=== PATIENT | male | born 1950 ===

== ENCOUNTER 2016-08-23 07:08 | Day surgery (SDC) | payer OTHER ==
[2016-08-23 07:48] VITALS: BMI 29.0
[2016-08-23] MEDS ORDERED: Lactated Ringer's 500 ML IV ONE (09:11)
[2016-08-23] MEDS ORDERED: Pantoprazole 40 mg EC Tab PO STA (09:16)
--- NOTE | 2016-08-23 09:16 | CP.SDSHP ---
Same Day Surgery H & P - History Proposed Procedure: egd Pre-Op Diagnosis: Gastric Cancer S/P CTX for preop evaluation - Previous Medical/Surgical History Cardiac: Hypertension Pulmonary: Asthma Misc: Other (Gastric Cancer, gastritis, H pylori gastritis) - Allergies Allergies: Allergies No Known Allergies Allergy (Verified 04/19/16 07:31) - Physical Exam Vital Signs: Vital Signs 08/23/16 07:30 Temperature 98.6 F Pulse Rate 80 Respiratory 20 Rate Blood Pressure 134/58 L O2 Sat by Pulse 99 Oximetry Mental Status: Alert & Oriented x3 Neuro: WNL Heart: WNL Lungs: WNL GI: WNL - Impression Impression: Gastric cancer for pre-op evaluation Pt. Evaluated Today:Candidate for Anesthesia & Procedure: Yes - Date & Time Date: 08/23/16 Time: 09:16 Short Stay Discharge - Short Stay Discharge Admitting Diagnosis/Reason for Visit: HEARTBURN / GERD W/ ESOPHAGITIS Disposition: HOME/ ROUTINE
[2016-08-23] MEDS ORDERED: Propofol 10 mg/ml Inj (20 ML) ONE (09:21)
[2016-08-23] MEDS ORDERED: Lidocaine Hydrochloride 10 ML INJ ONE (09:31)
[2016-08-23] MEDS ORDERED: Pantoprazole 40 mg EC Tab PO ONE (10:30)
[2016-08-23 10:34] LABS: HEMATOCRIT 27.9 % (35.0-51.0); MEAN CORPUSCULAR HEMOGLOBIN 29.1 pg (27.0-31.0); MEAN CORPUSCULAR HGB CONC 32.6 g/dL (33.0-37.0); MEAN PLATELET VOLUME 6.2 fL (7.2-11.7); RED CELL DISTRIBUTION WIDTH 20.9 % (11.5-14.5); WHITE BLOOD COUNT 5.8 K/uL (4.8-10.8)
[2016-08-23 10:35] LABS: MEAN CELL VOLUME 89.1 fL (80.0-94.0)
[2016-08-23 10:37] VITALS: TEMP 98.2
[2016-08-23 13:34] VITALS: O2SAT 99
[2016-08-23 13:52] VITALS: BP 121/58; PULSE 84; RESP 14
== END 2016-08-23 11:15 | disposition home or self-care (01) ==
LOC: C.ENDO 07:08
PROVIDERS: ATTEND Internal Medicine Gastroenterology
DX: C16.9 Malignant neoplasm of stomach, unspecified (principal); K21.9 Gastro-esophageal reflux disease without esophagitis; K29.70 Gastritis, unspecified, without bleeding
CPT/HCPCS: 36415; 43239; 85027; 88305; 88342; J2704; J3010; J7120

== ENCOUNTER 2017-01-29 10:16 | Inpatient (IN) | payer MEDICARE, OTHER ==
[2017-01-29 10:16] VITALS: BMI 29.0
--- NOTE | 2017-01-29 10:51 | C.PDOC ---
History Of Present Illness Patient is a 66 y/o male who presents to the ED by referral of his PMD for dehydration concern. Patient is s/p gastrectomy due to stomach CA in September 2016; patient admits to feeling periodic pain in upper mid chest/throat area when he swallows and dramatic weight loss since procedure. Patient is currently asymptomatic and denies any other pain at this time. Time Seen by Provider: 01/29/17 10:51 Chief Complaint (Nursing): Medical Clearance History Per: Patient History/Exam Limitations: no limitations Recent travel outside of the [place]: No Past Medical History Reviewed: Historical Data, Nursing Documentation, Vital Signs Vital Signs: Last Vital Signs Temp 98.8 F 01/29/17 13:52 Pulse 77 01/29/17 13:52 Resp 16 01/29/17 13:52 BP 130/67 01/29/17 13:52 Pulse Ox 99 01/29/17 13:52 - Medical History PMH: Anemia (IRON DEFICIENCY), Arthritis (CERVICAL AND HANDS), Asthma, Depression (NOT TAKING MED. ANYMORE; CLAIMS FEELS BETTER), HTN, Hypercholesterolemia Surgical History: Endoscopy Denies: Pacemaker, Tonsillectomy Other Surgeries: gastrectomy September 2016 - [employer] Procedures COLONOSCOPY (06/24/14) CORONAR ARTERIOGR-2 CATH (07/31/05) LEFT HEART CARDIAC CATH (07/31/05) LT HEART ANGIOCARDIOGRAM (07/31/05) Family History: States: Unknown Family Hx - Social History Hx Tobacco Use: No Hx Alcohol Use: No Hx Substance Use: No - Immunization History Hx Tetanus Toxoid Vaccination: No Hx Influenza Vaccination: Yes Hx Pneumococcal Vaccination: No Review Of Systems Except As Marked, All Systems Reviewed And Found Negative. ENT: Positive for: Throat Pain (periodic pain while swallowing. ) Physical Exam - Physical Exam Appears: Well, Non-toxic Skin: Normal Color, Warm, Dry Head: Atraumatic, Normacephalic Oral Mucosa: Dry Chest: Symmetrical Cardiovascular: Rhythm Regular, No Murmur Respiratory: Normal Breath Sounds, No Rales, No Rhonchi, No Wheezing Gastrointestinal/Abdominal: Soft, No Tenderness Extremity: Normal ROM (x4) Neurological/Psych: Oriented x3, Normal Speech, Normal Cognition ED Course And Treatment - Laboratory Results Result Diagrams: 01/29/17 11:20 01/29/17 11:20 ECG: Interpreted By Me ECG Rhythm: Sinus Rhythm ECG Interpretation: Normal Rate From EC O2 Sat by Pulse Oximetry: 100 (room air) Pulse Ox Interpretation: Normal - Radiology CXR: Interpreted by Me CXR Interpretation: Yes: No Acute Disease Progress Note: EKG, CXR, UA, and blood work ordered; IV fluids administered. Progress - Re-Evaluation Re-evaluation Note: 01/29/17 10:51 D/W DR GARCIA WILL ADMIT AND CONSULT DR JEFFERSON Disposition Counseled Patient/Family Regarding: Studies Performed, Diagnosis - Disposition Disposition: HOSPITALIZED Disposition Time: 11:40 Condition: STABLE - POA Present On Arrival: Poor Glycemic Control - Clinical Impression Clinical Impression: Dysphagia, Weight loss - Scribe Statement The provider has reviewed the documentation as recorded by the Scribe Estrella Akhtar All medical record entries made by the Scribe were at my direction and personally dictated by me. I have reviewed the chart and agree that the record accurately reflects my personal performance of the history, physical exam, medical decision making, and the department course for this patient. I have also personally directed, reviewed, and agree with the discharge instructions and disposition. Decision To Admit - Pt Status Changed To: Hospital Disposition Of: Observation - . Bed Request Type: Regular Admitting Physician: Miranda Garcia Patient Diagnosis: Dysphagia, Weight loss
[2017-01-29] MEDS ORDERED: Sodium Chloride 0.9% 1,000 ML IV ONE ×2 (11:03)
[2017-01-29] MEDS ORDERED: Sodium Chloride 0.9% 1,000 ML ONE ×2 (11:24)
[2017-01-29 11:25] LABS: BASO % 0.7 % (0.0-2.0); EOS # 0.1 K/uL (0.0-0.7); EOS % 2.2 % (0.0-4.0); HEMATOCRIT 31.8 % (35.0-51.0); LYMPH # 1.6 K/uL (1.0-4.3); LYMPH % 42.9 % (20.0-40.0); MEAN CELL VOLUME 89.3 fL (80.0-94.0); MEAN CORPUSCULAR HEMOGLOBIN 29.8 pg (27.0-31.0); MEAN CORPUSCULAR HGB CONC 33.4 g/dL (33.0-37.0); MEAN PLATELET VOLUME 6.6 fL (7.2-11.7); MONO # 0.3 K/uL (0.0-0.8); MONO % 9.1 % (0.0-10.0); NRBC % 0.1 % (0.0-2.0); RED CELL DISTRIBUTION WIDTH 17.6 % (11.5-14.5); WHITE BLOOD COUNT 3.8 K/uL (4.8-10.8)
[2017-01-29 11:36] LABS: BLOOD UREA NITROGEN 12 mg/dL (9-20); CALCIUM 9.4 mg/dl (8.6-10.4); CARBON DIOXIDE 25 mmol/L (22-30); CHLORIDE 104 mmol/L (98-107); GFR AFRICAN-AMERICAN > 60; GLUCOSE,RANDOM 58 mg/dL (75-110); POTASSIUM 3.3 mmol/L (3.6-5.2); SODIUM 142 mmol/L (132-148)
[2017-01-29 11:42] LABS: RBC URINE < 1 /hpf (0-3); URINE BILIRUBIN NEGATIVE (NEGATIVE); URINE BLOOD NEGATIVE (NEGATIVE); URINE COLOR Yellow (YELLOW); URINE GLUCOSE (UA) NORMAL (Normal); URINE KETONE NEGATIVE (NEGATIVE); URINE LEUKOCYTE ESTERASE NEG Leu/uL (Negative); URINE PROTEIN NEGATIVE (NEGATIVE); WBC URINE 1 /hpf (0-5)
[2017-01-29] MEDS: Multiple Vitamins Oral Solution PO SCH (14:45)
[2017-01-29] MEDS: Megestrol Acetate 40 mg/ml Cup PO SCH ×2 (14:45→21:35)
--- NOTE | 2017-01-29 15:15 | RAD ---
PROCEDURE: CHEST RADIOGRAPH, 1 VIEW HISTORY: DEHYDRATION COMPARISON: 06/06/2016. FINDINGS: LUNGS: Clear. PLEURA: No pneumothorax or pleural fluid seen. CARDIOVASCULAR: No radiographic findings to suggest acute or significant cardiovascular disease. Venous access catheter in stable, satisfactory position. OSSEOUS STRUCTURES: No significant abnormalities. VISUALIZED UPPER ABDOMEN: Normal. OTHER FINDINGS: None. IMPRESSION: No active disease. No acute/significant interval changes. Concordant results with the preliminary interpretation rendered by the emergency department physician procedure.
--- NOTE | 2017-01-29 17:54 | CP.PCM.CON ---
History of Present Illness - History of Present Illness History of Present Illness: Covering Dr Acharya. ASked to see pt for abdom pain and dysphagi,. H/o gastric CA and surgery 3 months ago. HAs been losingweight. Dysphagia x 1 months and odynophagia. Review of Systems - Constitutional Constitutional: Anorexia, Weight Loss - EENT Eyes: absent: Photophobia Nose/Mouth/Throat: Dysphagia, Odynophagia. absent: Neck Pain - Cardiovascular Cardiovascular: absent: Chest Pain, Dyspnea - Respiratory Respiratory: absent: Dyspnea, Hemoptysis, Wheezing - Gastrointestinal Gastrointestinal: Abdominal Pain, Nausea. absent: Diarrhea, Hematemesis, Hematochezia, Melena - Genitourinary Genitourinary: absent: Hematuria - Musculoskeletal Musculoskeletal: absent: Muscle Cramps, Muscle Weakness - Integumentary Integumentary: absent: Jaundice - Neurological Neurological: absent: Convulsions Past Patient History - Past Medical History & Family History Past Medical History?: Yes - Past Social History Smoking Status: Never Smoked - CARDIAC Hx Hypercholesterolemia: Yes Hx Hypertension: Yes Hx Pacemaker: No - PULMONARY Hx Asthma: Yes - NEUROLOGICAL Hx Neurological Disorder: Yes HX Cerebrovascular Accident: No Hx Dizziness: Yes Hx Paralysis: No - HEENT Hx HEENT Problems: Yes Hx Cataracts: Yes (RIGHT EYE, RECENTLY REMOVED, 04/05/16) - RENAL Hx Chronic Kidney Disease: No - ENDOCRINE/METABOLIC Hx Endocrine Disorders: No - HEMATOLOGICAL/ONCOLOGICAL Hx Anemia: Yes (IRON DEFICIENCY) - INTEGUMENTARY Hx Dermatological Problems: No - MUSCULOSKELETAL/RHEUMATOLOGICAL Hx Arthritis: Yes (CERVICAL AND HANDS) - GASTROINTESTINAL Hx Gastrointestinal Disorders: Yes Hx Fatty Liver Disease: Yes Hx Hemorrhoids: Yes (WITH BLEEDING) Other/Comment: FATTY LIVER, COLONOSCOPY 07/06 - GENITOURINARY/GYNECOLOGICAL Hx Genitourinary Disorders: No - PSYCHIATRIC Hx Depression: Yes (NOT TAKING MED. ANYMORE; CLAIMS FEELS BETTER) Hx Substance Use: No - SURGICAL HISTORY Hx Tonsillectomy: No - ANESTHESIA Hx Anesthesia: Yes Hx Anesthesia Reactions: No Hx Malignant Hyperthermia: No Meds Allergies/Adverse Reactions: Allergies Allergy/AdvReac Type Severity Reaction Status Date / Time No Known Allergies Allergy Verified 01/29/17 10:38 - Medications Medications: Current Medications Famotidine (Pepcid) 20 mg IVP DAILY [facility] Last Admin: 01/29/17 14:47 Dose: 20 mg Sodium Chloride (Sodium Chloride 0.9%) 1,000 mls @ 100 mls/hr IV .Q10H ONE Stop: 01/29/17 21:02 Last Admin: 01/29/17 13:07 Dose: 100 mls/hr Megestrol Acetate (Megace) 40 mg PO Q8 [facility] Last Admin: 01/29/17 14:45 Dose: 40 mg Multivitamins/Vitamin C (Multi-Delyn Liquid) 5 ml PO DAILY [facility] Last Admin: 01/29/17 14:45 Dose: 5 ml Sucralfate (Carafate Tab) 1 gm PO QID [facility] Last Admin: 01/29/17 15:50 Dose: 1 gm Physical Exam - Constitutional Appears: Non-toxic - Neck Exam Neck exam: Negative for: Tenderness - Respiratory Exam Respiratory Exam: Clear to Auscultation Bilateral - Cardiovascular Exam Cardiovascular Exam: RRR - GI/Abdominal Exam GI & Abdominal Exam: Normal Bowel Sounds, Soft. absent: Guarding, Rebound, Tenderness - Extremities Exam Extremities exam: Negative for: calf tenderness - Neurological Exam Neurological exam: Alert, Oriented x3 Results - Vital Signs Recent Vital Signs: Last Vital Signs Temp 98.8 F 01/29/17 13:52 Pulse 77 01/29/17 13:52 Resp 16 01/29/17 13:52 BP 130/67 01/29/17 13:52 Pulse Ox 100 01/29/17 15:23 - Labs Result Diagrams: 01/29/17 11:20 01/29/17 11:20 Assessment & Plan (1) Dysphagia Assessment and Plan: COnsider GERD, esophagitis, juliana, gastric CA. Consider esophogram or EGD Status: Acute (2) Weight loss Assessment and Plan: GAstric CA. s/p surgery Status: Acute (3) Anemia Status: Chronic (4) Benign essential HTN Status: Chronic (5) GERD (gastroesophageal reflux disease) Status: Chronic (6) Gastric cancer Assessment and Plan: surgery 3 months ago. Status: Acute
[2017-01-29 18:19] LABS: INR 1.3
[2017-01-29] MEDS ORDERED: Potassium Chloride 20 mEq/15 ml LIQ UD PO STA (19:10)
[2017-01-29] MEDS ORDERED: Potassium Chloride 20 mEq/15 ml LIQ UD ONE (19:18)
[2017-01-29] MEDS: Sucralfate 1 gm/10 ml Oral Susp UD PO SCH (21:35)
[2017-01-30] MEDS: Megestrol Acetate 40 mg/ml Cup PO SCH ×3 (05:15→21:12)
[2017-01-30] MEDS ORDERED: Barium Sulfate for Susp 98% w/w 340g Bottle ONE (08:12)
[2017-01-30] MEDS ORDERED: Barium Sulfate for Susp 96% w/w 176g Bottle PR ONE (08:12)
[2017-01-30] MEDS: Sucralfate 1 gm/10 ml Oral Susp UD PO SCH ×4 (10:00→22:00)
[2017-01-30] MEDS: Multiple Vitamins Oral Solution PO SCH (10:00)
--- NOTE | 2017-01-30 12:27 | CARD ---
APPROVED REPORT EKG Measurement Heart [id number] <Conclusion> Normal sinus rhythm Normal ECG
--- NOTE | 2017-01-30 13:11 | RAD ---
HISTORY: dysphagia (PT SCOUTED FOR GI/ESPH) ORDER CHANGED TO VIDEO SWALLOW COMPARISON: Portable chest 01/29/2017. FINDINGS: BOWEL: Nonobstructive bowel gas pattern is appreciated. Obtain seizures identified status post prior bowel segmental resection at the left lower quadrant as well as at the right upper quadrant. No gross free intraperitoneal gas. No suspicious intra-abdominal calcifications identified. BONES: Normal. OTHER FINDINGS: Right-sided left port catheter identified with the costophrenic sulci and lateral bases excluded from this exam. Cardiac silhouette appears normal as well as midline trachea. No prominent pneumothorax. No infiltrate bilaterally. IMPRESSION: Prior life port catheter placement again evident with no definite acute chest findings as imaged. No bowel obstruction pattern or gross free intraperitoneal gas.
[2017-01-30] MEDS ORDERED: Iodixanol 320 MG/ML 100 ML BOTTLE IV ONE (14:06)
--- NOTE | 2017-01-30 15:50 | CT ---
PROCEDURE: CT NECK WITH CONTRAST HISTORY: ct of neck with contrast dx dysphagia hx of gastr COMPARISON: None TECHNIQUE: CT of the neck with intravenous contrast. Coronal and sagittal reformats generated. Intravenous contrast dose: 100 mL Visipaque 320 Radiation dose: DLP 430.11 mGy-cm This CT exam was performed using one or more of the following dose reduction techniques: Automated exposure control, adjustment of the mA and/or kV according to patient size, and/or use of iterative reconstruction technique. FINDINGS: NASOPHARYNX: Unremarkable. SUPRAHYOID NECK: Unremarkable oropharynx, oral cavity, parapharyngeal space and retropharyngeal space. INFRAHYOID NECK: There is circumferential mucosal thickening at the level of the lower larynx/focal cord associated with focal narrowing at this level. Otherwise the hypopharynx, and supraglottic space are unremarkable. . MASS: Focal mucosal thickening at the level of the vocal cord. The possibility of neoplasm should be excluded. GLANDS: Parotid and submandibular glands unremarkable. Normal size thyroid gland, without nodule. LYMPH NODES: Normal. No lymphadenopathy. CERVICAL SPINE: No fracture or focal lesion. There is ligament calcification posterior to C2 and C3 vertebral body. Moderate degenerative changes are noted. VASCULAR STRUCTURES: There is venous catheter extending to the right jugular vein and the SVC. OTHER FINDINGS: None. IMPRESSION: Focal circumferential mucosal thickening at the level of the vocal cord associated with moderate to severe narrowing at this level. The possibility of underline infiltrated neoplasm should be excluded. No evidence of lymphadenopathy in the neck.
--- NOTE | 2017-01-30 16:08 | CT ---
PROCEDURE: CT Chest, Abdomen with intravenous contrast HISTORY: dysphagia and hx of gastric ca COMPARISON: Comparison is made to the previous CT of the abdomen dated 04/19/2016 TECHNIQUE: IV dose administered: 100 mL Visipaque 320. Axial and reformatted coronal and sagittal CT images of the chest and abdomen were obtained after IV contrast administration. CT of the neck was obtained concurrently and reported separately. Radiation dose: Total exam DLP = 352.6 mGy-cm. This CT exam was performed using one or more of the following dose reduction techniques: Automated exposure control, adjustment of the mA and/or kV according to patient size, and/or use of iterative reconstruction technique. FINDINGS: CT CHEST WITH CONTRAST: LUNGS: Clear. No nodule, mass or consolidation. MEDIASTINUM: Unremarkable. Normal caliber aorta and pulmonary arterial trunk. No aortic dissection. Normal size heart. LYMPH NODES: Unremarkable. PLEURA: Unremarkable. No pneumothorax. No pleural fluid. BONES: Unremarkable. OTHER FINDINGS: None. CT ABDOMEN AND PELVIS: LIVER: Again seen are 2 low-attenuation cystic lesion in the liver which have not significantly changed compared to the previous study dated 04/19/2016. Go. No gross lesion or ductal dilatation. GALLBLADDER AND BILE DUCTS: Unremarkable. PANCREAS: Unremarkable. No gross lesion or ductal dilatation. SPLEEN: Unremarkable. ADRENALS: Unremarkable. No mass. KIDNEYS AND URETERS: Unremarkable. No hydronephrosis. No solid mass. VASCULATURE: Unremarkable. No aortic aneurysm. BOWEL: There are postsurgical changes at the stomach suggestive of prior gastrectomy. There are also postsurgical changes and bowel anastomosis at the left mid abdomen. No evidence of bowel obstruction. APPENDIX: No evidence of appendicitis. PERITONEUM: Unremarkable. No free fluid. No free air. LYMPH NODES: Unremarkable. No enlarged lymph nodes. BLADDER: The pelvis and bladder are not included in this exam. REPRODUCTIVE: The pelvis is not included in this exam. BONES: No acute fracture. OTHER FINDINGS: None. IMPRESSION: Postsurgical changes suggestive of prior gastrectomy and bowel and stenosis. Re- demonstration of 2 low-attenuation lesions in the liver may represent benign cyst. No evidence of enhancing mass lesion or lymphadenopathy in the chest and abdomen.
--- NOTE | 2017-01-30 16:58 | CP.PCM.PN ---
Subjective - Date & Time of Evaluation Date of Evaluation: 01/30/17 Time of Evaluation: 16:54 - Subjective Subjective: Patient well known to me with Gastric Ca presenting as gastric ulcerated mass, no response to CTX initially with many side effects followed by partial gastrectomy by Surgical Oncologist at [facility] in September. Patient was noted to have positive LN's though mass was fully resected. Patient was explained that positive nodes could lead to recurrent tumor but he refused to have any further CTX saying he was aware of the risks but wanted no more treatment. C/O difficulty swallowing at the level of the pharynx and upper throat and painful swallowing. CT Scan of neck, chest and abdomen reveal a circumferential narrowing below the larynx and possible mass at the level of the vocal chords suspicious for a malignancy. Chest, Mediastinum, abdomen show post op changes and no new masses or LN's. Two cystic lesions seen in the liver remain unchanged. Objective - Vital Signs/Intake and Output Vital Signs (last 24 hours): Temp Pulse Resp BP Pulse Ox 97.5 F L 58 L 20 106/60 100 01/30/17 15:00 01/30/17 15:00 01/30/17 15:00 01/30/17 15:00 01/30/17 15:00 Intake and Output: 01/30/17 01/30/17 06:59 18:59 Intake Total 1100 Balance 1100 - Medications Medications: Current Medications Famotidine (Pepcid) 20 mg IVP DAILY [facility] Last Admin: 01/30/17 13:04 Dose: 20 mg Megestrol Acetate (Megace) 40 mg PO Q8 [facility] Last Admin: 01/30/17 13:12 Dose: Not Given Multivitamins/Vitamin C (Multi-Delyn Liquid) 5 ml PO DAILY [facility] Last Admin: 01/30/17 10:00 Dose: Not Given Sucralfate (Carafate Oral Susp) 1 gm PO QID [facility] Last Admin: 01/30/17 13:12 Dose: Not Given - Labs Labs: PT 14.1 SECONDS (9.7-12.2) H 01/29/17 18:06 INR 1.3 01/29/17 18:06 APTT 33 SECONDS (21-34) 01/30/17 08:20 - Constitutional Appears: Cachectic, Chronically Ill - Head Exam Head Exam: ATRAUMATIC, NORMOCEPHALIC - Eye Exam Eye Exam: EOMI, PERRL - ENT Exam ENT Exam: Mucous Membranes Moist - Neck Exam Neck Exam: absent: Tenderness, Thyromegaly - Respiratory Exam Respiratory Exam: NORMAL BREATHING PATTERN - Cardiovascular Exam Cardiovascular Exam: REGULAR RHYTHM, +S1 - GI/Abdominal Exam GI & Abdominal Exam: Soft, Normal Bowel Sounds. absent: Tenderness Additional comments: well healed and large surgical scar noted. - Extremities Exam Extremities Exam: Full ROM, Normal Inspection. absent: Pedal Edema Assessment and Plan (1) Odynophagia Assessment & Plan: symptoms appear related to some mass/thickening of the trachea at and below the vocal chords. Esophagus and chest CT appear normal with no esophageal obstruction. He is able to swallow but has pain in the throat area when he does. Awaiting ENT evaluation. Discussed with Dr Wilkerson by phone Laryngoscopy vs Bronchoscopy for diagnosis/biopsy if needed. No plan for immenent EGD appears to be needed. Status: Acute (2) Laryngeal mass Assessment & Plan: Possible mass and tracheal thickening seen on CT of neck ENT consult pending and message left for Dr Garcia by voice mail and text. May need bronch according to Dr Wilkerson. Status: Acute (3) Abnormal CT scan, neck Assessment & Plan: as above Status: Acute (4) Dysphagia Assessment & Plan: as above Appears to be more "painful swallowing" at the level of the neck/trachea. May be related to extrinsic process. No current plan for EGD pending ENT/Pulmonary work up for source of pain. Swallowing evaluation showed his ability to swallow liquids and pureed today. Study limited by complaint of pain and not aspiration of vomiting. Status: Acute (5) Gastric cancer Assessment & Plan: S/P resection 10/[address] and clear margin. Refused CTX post-op as advised by Oncology and myself. Dr Brand knows patient well. Status: Acute (6) Weight loss Assessment & Plan: as above. Status: Acute
--- NOTE | 2017-01-30 19:59 | CP.PCM.PN ---
Subjective - Date & Time of Evaluation Date of Evaluation: 01/30/17 Time of Evaluation: 19:59 - Subjective Subjective: I spoke to the ENT specialist to. CAT scan of the neck showing evidence of suspected obstruction. After the ENT evaluation. Patient may need a bronchoscopy. But CAT scan of the abdomen and the chest is nonspecific. No evidence of any metastatic changes noted. Will follow the patient. Objective - Vital Signs/Intake and Output Vital Signs (last 24 hours): Temp Pulse Resp BP Pulse Ox 97.5 F L 58 L 20 106/60 100 01/30/17 15:00 01/30/17 15:00 01/30/17 15:00 01/30/17 15:00 01/30/17 15:00 - Medications Medications: Current Medications Famotidine (Pepcid) 20 mg IVP DAILY [facility] Last Admin: 01/30/17 13:04 Dose: 20 mg Megestrol Acetate (Megace) 40 mg PO Q8 [facility] Last Admin: 01/30/17 13:12 Dose: Not Given Multivitamins/Vitamin C (Multi-Delyn Liquid) 5 ml PO DAILY [facility] Last Admin: 01/30/17 10:00 Dose: Not Given Sucralfate (Carafate Oral Susp) 1 gm PO QID [facility] Last Admin: 01/30/17 18:03 Dose: 1 gm - Labs Labs: PT 14.1 SECONDS (9.7-12.2) H 01/29/17 18:06 INR 1.3 01/29/17 18:06 APTT 33 SECONDS (21-34) 01/30/17 08:20
--- NOTE | 2017-01-30 19:59 | CP.PCM.HP ---
History of Present Illness - History of Present Illness History of Present Illness: Chief complaint: Difficulty in swallowing, weight loss. History present illness: 66-year-old male with history of hypertension, osteoarthritis, history of chronic neck pain, bronchial asthma. Patient was diagnosed with the gastric cancer, with a lymph node metastasis. Patient underwent total gastrectomy, and esophagojejunostomy. Lymph node dissection was done. And prior to that patient underwent neoadjuvant therapy, and he received one dose of chemotherapy. After that the patient refused further chemotherapy. Patient came to the office with the increasing symptoms of weight loss, not eating well. Some difficulty in taking solid food, even sometimes difficulty in swallowing the liquid diet. Is also having some difficulty in talking. He's also having some difficulty in eating well. Weight loss noted. After eating some more food, he started feeling nauseated and episodes of vomiting noted. Minimal cough. Past medical history as noted above. Allergy no known drug allergy. Personal history none smoker, nonalcoholic. Review of system noted from the chart. On examination: On examination: HEENT PERRLA, neck supple, significant weight loss noted No thyromegaly was noted and no cervical adenopathy noted Chest bilateral good air entry, no wheezing or rales noted CVS regular heart sound, no murmur Abdomen soft and no organomegaly Extremities no pedal edema, no leg swelling, pedal pulses are good. REJECTOR alert awake oriented x3 no functional neurological deficit. Labs reviewed. Nonspecific. Assessment and recommendation: 66-year-old male with history of hypertension, osteoarthritis, chronic back, neck pain, bronchial asthma, with the gastric cancer, status post surgery. Now having significant dysphagia, and also difficulty in talking. Underlaying metastatic disease cannot be ruled out. Will get a GI evaluation, CAT scan of the neck in the soft tissues advised. Nutritional supplementation, IV fluid. And will follow the patient Present on Admission - Present on Admission Any Indicators Present on Admission: No History of DVT/PE: No History of Uncontrolled Diabetes: No Urinary Catheter: No Decubitus Ulcer Present: No Past Patient History - Past Medical History & Family History Past Medical History?: Yes - Past Social History Smoking Status: Never Smoked - CARDIAC Hx Hypertension: Yes - PULMONARY Hx Asthma: Yes - NEUROLOGICAL Hx Neurological Disorder: Yes HX Cerebrovascular Accident: No Hx Dizziness: Yes Hx Paralysis: No - HEENT Hx HEENT Problems: Yes Hx Cataracts: Yes (RIGHT EYE, RECENTLY REMOVED, 04/05/16) - RENAL Hx Chronic Kidney Disease: No - ENDOCRINE/METABOLIC Hx Endocrine Disorders: No - HEMATOLOGICAL/ONCOLOGICAL Hx Anemia: Yes (IRON DEFICIENCY) - INTEGUMENTARY Hx Dermatological Problems: No - MUSCULOSKELETAL/RHEUMATOLOGICAL Hx Falls: No - GASTROINTESTINAL Hx Gastrointestinal Disorders: Yes Hx Fatty Liver Disease: Yes Hx Hemorrhoids: Yes (WITH BLEEDING) Other/Comment: FATTY LIVER, COLONOSCOPY 07/06 - GENITOURINARY/GYNECOLOGICAL Hx Genitourinary Disorders: No - PSYCHIATRIC Hx Substance Use: No - SURGICAL HISTORY Hx Tonsillectomy: No - ANESTHESIA Hx Anesthesia: Yes Hx Anesthesia Reactions: No Hx Malignant Hyperthermia: No Meds Allergies/Adverse Reactions: Allergies Allergy/AdvReac Type Severity Reaction Status Date / Time No Known Allergies Allergy Verified 01/29/17 10:38 Results - Vital Signs Recent Vital Signs: Last Vital Signs Temp 97.5 F L 01/30/17 15:00 Pulse 58 L 01/30/17 15:00 Resp 20 01/30/17 15:00 BP 106/60 01/30/17 15:00 Pulse Ox 100 01/30/17 15:00 - Labs Result Diagrams: 01/29/17 11:20 01/29/17 11:20 Labs: Laboratory Results - last 24 hr 01/30/17 08:20 APTT 33
[2017-01-31] MEDS: Megestrol Acetate 40 mg/ml Cup PO SCH ×3 (05:30→21:40)
[2017-01-31] MEDS: Sucralfate 1 gm/10 ml Oral Susp UD PO SCH ×4 (09:48→21:40)
[2017-01-31] MEDS: Multiple Vitamins Oral Solution PO SCH (09:48)
--- NOTE | 2017-01-31 09:56 | CP.PCM.PN ---
Subjective - Date & Time of Evaluation Date of Evaluation: 01/31/17 Time of Evaluation: 09:53 - Subjective Subjective: No new complaints. Awaiting ENT evaluation followed by Bronchoscopy of Laryngoscopy Objective - Vital Signs/Intake and Output Vital Signs (last 24 hours): Temp Pulse Resp BP Pulse Ox 98 F 69 21 103/58 L 100 01/31/17 09:05 01/31/17 09:05 01/31/17 09:05 01/31/17 09:05 01/31/17 09:05 Intake and Output: 01/31/17 01/31/17 06:59 18:59 Intake Total 150 Balance 150 - Medications Medications: Current Medications Famotidine (Pepcid) 20 mg IVP DAILY [facility] Last Admin: 01/31/17 09:48 Dose: 20 mg Megestrol Acetate (Megace) 40 mg PO Q8 [facility] Last Admin: 01/31/17 05:30 Dose: 40 mg Multivitamins/Vitamin C (Multi-Delyn Liquid) 5 ml PO DAILY [facility] Last Admin: 01/31/17 09:48 Dose: 5 ml Sucralfate (Carafate Oral Susp) 1 gm PO QID [facility] Last Admin: 01/31/17 09:48 Dose: 1 gm - Labs Labs: PT 14.1 SECONDS (9.7-12.2) H 01/29/17 18:06 INR 1.3 01/29/17 18:06 APTT 33 SECONDS (21-34) 01/30/17 08:20 - Constitutional Appears: Cachectic, Chronically Ill - Eye Exam Eye Exam: EOMI, PERRL - Respiratory Exam Respiratory Exam: NORMAL BREATHING PATTERN - Cardiovascular Exam Cardiovascular Exam: REGULAR RHYTHM, +S1 - GI/Abdominal Exam GI & Abdominal Exam: Soft, Normal Bowel Sounds. absent: Distended, Guarding, Tenderness, Mass, Rebound - Extremities Exam Extremities Exam: Normal Inspection Assessment and Plan (1) Odynophagia Assessment & Plan: Likely due to laryngeal/tracheal mass work up in progress Status: Acute (2) Laryngeal mass Assessment & Plan: For ENT and Pulmonary evaluation by endoscopic exam Continue current diet as tolerated Status: Acute (3) Abnormal CT scan, neck Status: Acute (4) Dysphagia Status: Acute (5) Gastric cancer Status: Acute (6) Weight loss Status: Acute
--- NOTE | 2017-01-31 20:50 | OP ---
PROCEDURE DATE: 01/31/2017 PREOPERATIVE DIAGNOSIS: Dysphagia. POSTOPERATIVE DIAGNOSIS: Dysphagia. PROCEDURE: Flexible laryngoscopy. SIGNIFICANT FINDINGS: Arytenoid erythema. DESCRIPTION OF PROCEDURE: The patient was placed in a seated position. Afrin was then sprayed in the nasal cavities. A flexible laryngoscope was inserted into the nasal cavity and was passed to the nasopharynx, oropharynx and hypopharynx. The base of tongue, vallecula, epiglottis, AE folds, false cords, true cords, piriform sinuses, arytenoids, pharyngeal diaz were brought into view. Erythema of the arytenoids was noted. It was moderate in intensity. Vocal cords were mobile bilaterally. The scope was removed. The patient tolerated the procedure well. The patient assessed as having a gastroesophageal reflux disease or laryngopharyngeal reflux disease. Terrell Wilkerson MD [email or web address]
[2017-02-01] MEDS: Megestrol Acetate 40 mg/ml Cup PO SCH ×3 (05:16→21:57)
[2017-02-01 07:31] LABS: BASO % 0.6 % (0.0-2.0); EOS # 0.1 K/uL (0.0-0.7); EOS % 2.5 % (0.0-4.0); HEMATOCRIT 29.9 % (35.0-51.0); LYMPH # 2.1 K/uL (1.0-4.3); LYMPH % 57.1 % (20.0-40.0); MEAN CORPUSCULAR HEMOGLOBIN 30.7 pg (27.0-31.0); MEAN CORPUSCULAR HGB CONC 34.9 g/dL (33.0-37.0); MONO # 0.3 K/uL (0.0-0.8); RED CELL DISTRIBUTION WIDTH 16.9 % (11.5-14.5); WHITE BLOOD COUNT 3.6 K/uL (4.8-10.8)
[2017-02-01 07:49] LABS: CHLORIDE 107 mmol/L (98-107)
[2017-02-01 07:50] LABS: POTASSIUM 3.6 mmol/L (3.6-5.2); SODIUM 142 mmol/L (132-148)
[2017-02-01 07:52] LABS: ALB/GLOB RATIO 1.3 (1.0-2.1); ALKALINE PHOSPHATASE 54 U/L (38-126); ALT/SGPT 23 U/L (21-72); AST/SGOT 16 U/L (17-59); BILIRUBIN,TOTAL 0.5 mg/dL (0.2-1.3); BLOOD UREA NITROGEN 10 mg/dL (9-20); CARBON DIOXIDE 24 mmol/L (22-30); GFR AFRICAN-AMERICAN > 60; TOTAL PROTEIN 5.6 g/dL (6.3-8.3)
[2017-02-01 07:53] LABS: CALCIUM 9.3 mg/dl (8.6-10.4); GLUCOSE,RANDOM 72 mg/dL (75-110)
[2017-02-01] MEDS: Sucralfate 1 gm/10 ml Oral Susp UD PO SCH ×4 (10:15→21:57)
[2017-02-01] MEDS: Multiple Vitamins Oral Solution PO SCH (10:15)
--- NOTE | 2017-02-01 11:35 | CP.PCM.PN ---
Subjective - Date & Time of Evaluation Date of Evaluation: 02/01/17 Time of Evaluation: 11:34 - Subjective Subjective: Results of laryngoscopy reviewed. No mass seen. Objective - Vital Signs/Intake and Output Vital Signs (last 24 hours): Temp Pulse Resp BP Pulse Ox 98.1 F 70 20 127/72 100 02/01/17 00:07 02/01/17 00:07 02/01/17 00:07 02/01/17 00:07 02/01/17 00:07 Intake and Output: 02/01/17 02/01/17 06:59 18:59 Intake Total 360 Balance 360 - Medications Medications: Current Medications Famotidine (Pepcid) 20 mg IVP DAILY [facility] Last Admin: 02/01/17 10:19 Dose: 20 mg Heparin Sodium (Porcine) (Heparin) 5,000 units SC Q8 [facility] Last Admin: 02/01/17 05:16 Dose: 5,000 units Megestrol Acetate (Megace) 40 mg PO Q8 [facility] Last Admin: 02/01/17 05:16 Dose: 40 mg Multivitamins/Vitamin C (Multi-Delyn Liquid) 5 ml PO DAILY [facility] Last Admin: 02/01/17 10:15 Dose: 5 ml Sucralfate (Carafate Oral Susp) 1 gm PO QID [facility] Last Admin: 02/01/17 10:15 Dose: 1 gm Zolpidem Tartrate (Ambien) 5 mg PO HS PRN PRN Reason: Insomnia Last Admin: 01/31/17 21:41 Dose: 5 mg - Labs Labs: 02/01/17 07:19 02/01/17 07:19 PT 14.1 SECONDS (9.7-12.2) H 01/29/17 18:06 INR 1.3 01/29/17 18:06 APTT 33 SECONDS (21-34) 01/30/17 08:20 - Constitutional Appears: Cachectic, Chronically Ill - Head Exam Head Exam: ATRAUMATIC, NORMOCEPHALIC - Respiratory Exam Respiratory Exam: NORMAL BREATHING PATTERN - Cardiovascular Exam Cardiovascular Exam: REGULAR RHYTHM, +S1 - GI/Abdominal Exam GI & Abdominal Exam: Soft, Normal Bowel Sounds. absent: Tenderness Assessment and Plan (1) Odynophagia Assessment & Plan: Will plan for EGD tomorrow to evaluate Review of laryngoscopy done today, was not alerted as to findings in order to schedule him for today. Status: Acute (2) Laryngeal mass Status: Ruled-out (3) Abnormal CT scan, neck Status: Ruled-out (4) Dysphagia Assessment & Plan: EGD in am Continue PPI Status: Acute (5) Gastric cancer Status: Resolved (6) Weight loss Status: Acute
[2017-02-01] MEDS ORDERED: Benzocaine/Menthol (Cepacol) Lozenge MT PRN (12:50)
--- NOTE | 2017-02-01 17:42 | CP.PCM.PN ---
Subjective - Date & Time of Evaluation Date of Evaluation: 02/01/17 Time of Evaluation: 17:38 - Subjective Subjective: PT SEEN DURING ROUNDS TODAY. STILL TO BE SEEN BY DR. SMITH TODAY AFTER OFFICE HOURS. PT STILL C/O DYSPHAGIA. NO DROOLING, SOB NOTED. SPEECH CLEAR. SEEN BY DR. TAYLOR YESTERDAY AND CLEARED ENT [place]. PENDING ENDOSCOPY TOMORROW. PT IS STILL ASPIRATION RISK. PT ALSO HAS CONCERNS REGARDING HIS MEDIPORT LOCATED TO RIGHT ANTERIOR CHEST WALL, WHICH HE SAID WAS COMMUNICATED TO DR CHURCH LAST NIGHT DURING ROUNDS. PT STATES HE REC'D HIS CHEMO THROUGH THERE BUT WANTS IT REMOVED. PT STATES IF CANCER IS FOUND ELSEWHERE IN HIS BODY HE WISHES TO JUST LIVE THE REST OF HIS LIFE W CANCER AND WILL REFUSE CHEMO. PENDING DISPOSITION AFTER ENDO AND FURTHER CONSULT RECOMMENDATIONS. NO FURTHER ORDERS. Objective - Vital Signs/Intake and Output Vital Signs (last 24 hours): Temp Pulse Resp BP Pulse Ox 98.5 F 98 H 20 100/63 97 02/01/17 16:00 02/01/17 16:30 02/01/17 16:00 02/01/17 16:00 02/01/17 16:30 Intake and Output: 02/01/17 02/01/17 06:59 18:59 Intake Total 360 280 Balance 360 280 - Medications Medications: Current Medications Benzocaine/Menthol (Cepacol Sore Throat) 1 germania MT Q4 PRN PRN Reason: Sore Throat Last Admin: 02/01/17 14:13 Dose: 1 germania Famotidine (Pepcid) 20 mg IVP DAILY [facility] Last Admin: 02/01/17 10:19 Dose: 20 mg Heparin Sodium (Porcine) (Heparin) 5,000 units SC Q8 [facility] Last Admin: 02/01/17 14:30 Dose: 5,000 units Megestrol Acetate (Megace) 40 mg PO Q8 [facility] Last Admin: 02/01/17 14:26 Dose: 40 mg Multivitamins/Vitamin C (Multi-Delyn Liquid) 5 ml PO DAILY [facility] Last Admin: 02/01/17 10:15 Dose: 5 ml Ondansetron HCl (Zofran Inj) 4 mg IVP Q6 PRN PRN Reason: Nausea/Vomiting Last Admin: 02/01/17 13:02 Dose: 4 mg Sucralfate (Carafate Oral Susp) 1 gm PO QID [facility] Last Admin: 02/01/17 14:26 Dose: 1 gm Zolpidem Tartrate (Ambien) 5 mg PO HS PRN PRN Reason: Insomnia Last Admin: 01/31/17 21:41 Dose: 5 mg - Labs Labs: 02/01/17 07:19 02/01/17 07:19 PT 14.1 SECONDS (9.7-12.2) H 01/29/17 18:06 INR 1.3 01/29/17 18:06 APTT 33 SECONDS (21-34) 01/30/17 08:20
--- NOTE | 2017-02-01 22:00 | CP.PCM.PN ---
Subjective - Date & Time of Evaluation Date of Evaluation: 02/01/17 Time of Evaluation: 21:59 - Subjective Subjective: Patient feeling okay. But complaining of difficulty in swallowing. Endoscopy in the morning. Patient wanted the Port-A-Cath to be removed. We'll get a surgical evaluation. Bronchoscopy may be needed but will evaluate and will follow the patient. Objective - Vital Signs/Intake and Output Vital Signs (last 24 hours): Temp Pulse Resp BP Pulse Ox 98.5 F 98 H 20 100/63 97 02/01/17 16:00 02/01/17 16:30 02/01/17 16:00 02/01/17 16:00 02/01/17 16:30 Intake and Output: 02/01/17 02/02/17 18:59 06:59 Intake Total 280 Balance 280 - Medications Medications: Current Medications Benzocaine/Menthol (Cepacol Sore Throat) 1 germania MT Q4 PRN PRN Reason: Sore Throat Last Admin: 02/01/17 14:13 Dose: 1 germania Famotidine (Pepcid) 20 mg IVP DAILY [facility] Last Admin: 02/01/17 10:19 Dose: 20 mg Heparin Sodium (Porcine) (Heparin) 5,000 units SC Q8 [facility] Last Admin: 02/01/17 21:57 Dose: 5,000 units Megestrol Acetate (Megace) 40 mg PO Q8 [facility] Last Admin: 02/01/17 21:57 Dose: 40 mg Multivitamins/Vitamin C (Multi-Delyn Liquid) 5 ml PO DAILY [facility] Last Admin: 02/01/17 10:15 Dose: 5 ml Ondansetron HCl (Zofran Inj) 4 mg IVP Q6 PRN PRN Reason: Nausea/Vomiting Last Admin: 02/01/17 13:02 Dose: 4 mg Sucralfate (Carafate Oral Susp) 1 gm PO QID [facility] Last Admin: 02/01/17 21:57 Dose: 1 gm Zolpidem Tartrate (Ambien) 5 mg PO HS PRN PRN Reason: Insomnia Last Admin: 02/01/17 21:57 Dose: 5 mg - Labs Labs: 02/01/17 07:19 02/01/17 07:19 PT 14.1 SECONDS (9.7-12.2) H 09/10/17 18:06 INR 1.3 01/29/17 18:06 APTT 33 SECONDS (21-34) 01/30/17 08:20
[2017-02-02] MEDS: Megestrol Acetate 40 mg/ml Cup PO SCH ×3 (05:14→21:52)
[2017-02-02 09:09] LABS: HEMATOCRIT 32.6 % (35.0-51.0); MEAN CELL VOLUME 89.1 fL (80.0-94.0); MEAN CORPUSCULAR HEMOGLOBIN 30.7 pg (27.0-31.0); MEAN CORPUSCULAR HGB CONC 34.5 g/dL (33.0-37.0); RED CELL DISTRIBUTION WIDTH 16.5 % (11.5-14.5); WHITE BLOOD COUNT 3.3 K/uL (4.8-10.8)
[2017-02-02 09:15] LABS: CHLORIDE 106 mmol/L (98-107); POTASSIUM 3.5 mmol/L (3.6-5.2); SODIUM 140 mmol/L (132-148)
[2017-02-02 09:18] LABS: BLOOD UREA NITROGEN 11 mg/dL (9-20); CARBON DIOXIDE 22 mmol/L (22-30); GFR AFRICAN-AMERICAN > 60
[2017-02-02 09:19] LABS: CALCIUM 9.5 mg/dl (8.6-10.4); GLUCOSE,RANDOM 68 mg/dL (75-110)
[2017-02-02] MEDS: Sucralfate 1 gm/10 ml Oral Susp UD PO SCH ×4 (09:44→21:52)
[2017-02-02] MEDS: Multiple Vitamins Oral Solution PO SCH (09:44)
[2017-02-02] MEDS ORDERED: Lactated Ringer's 500 ML IV ONE (10:08)
[2017-02-02] MEDS ORDERED: Propofol 10 mg/ml Inj (20 ML) ONE ×2 (10:08→15:41)
--- NOTE | 2017-02-02 10:24 | CP.PCM.PN ---
Subjective - Date & Time of Evaluation Date of Evaluation: 02/02/17 Time of Evaluation: 10:19 - Subjective Subjective: EGD: No abnormal findings noted in proximal esophagus and grossly normal, but edematous, pharynx. No mass or ulcer seen. Severe esophagitis from mid esophagus to esophago-jejunal anastamosis at 36cm with free alkaline reflux of bile noted. Biopsy of nodularity at anastamosis taken. Widely patent dual openings to small bowel loop noted below 36 cm. (Prior operative report not available to ascertain surgical anatomy!!) No residual stomach seen. Small bowel appeared patent and normal to extent it was traversed. Advise supportive/palliative care only as per patients wishes. Add Carafate liquid QID as bile acid binder. No further GI work up warranted at this time. Consider bronchoscopy if tracheal lesion is still suspected. Can follow up in my office after discharge as needed. Thank you. Objective - Vital Signs/Intake and Output Vital Signs (last 24 hours): Temp Pulse Resp BP Pulse Ox 98.5 F 82 14 109/46 L 100 02/02/17 10:11 02/02/17 10:11 02/02/17 10:11 02/02/17 10:11 02/02/17 10:11 Intake and Output: 02/02/17 02/02/17 06:59 18:59 Intake Total 200 Balance 200 - Medications Medications: Current Medications Benzocaine/Menthol (Cepacol Sore Throat) 1 germania MT Q4 PRN PRN Reason: Sore Throat Last Admin: 02/01/17 14:13 Dose: 1 germania Famotidine (Pepcid) 20 mg IVP DAILY [facility] Last Admin: 02/02/17 09:47 Dose: 20 mg Heparin Sodium (Porcine) (Heparin) 5,000 units SC Q8 [facility] Last Admin: 02/02/17 05:13 Dose: Not Given Lactated Ringer's (Lactated Ringer's 500ml) 500 mls @ 75 mls/hr IV .Q6H40M [facility] Megestrol Acetate (Megace) 40 mg PO Q8 [facility] Last Admin: 02/02/17 05:14 Dose: Not Given Multivitamins/Vitamin C (Multi-Delyn Liquid) 5 ml PO DAILY [facility] Last Admin: 02/02/17 09:44 Dose: Not Given Ondansetron HCl (Zofran Inj) 4 mg IVP Q6 PRN PRN Reason: Nausea/Vomiting Last Admin: 02/01/17 13:02 Dose: 4 mg Sucralfate (Carafate Oral Susp) 1 gm PO QID [facility] Last Admin: 02/02/17 09:44 Dose: Not Given Zolpidem Tartrate (Ambien) 5 mg PO HS PRN PRN Reason: Insomnia Last Admin: 02/01/17 21:57 Dose: 5 mg - Labs Labs: 02/02/17 08:55 02/02/17 08:55 PT 14.1 SECONDS (9.7-12.2) H 01/29/17 18:06 INR 1.3 01/29/17 18:06 APTT 33 SECONDS (21-34) 01/30/17 08:20 Assessment and Plan (1) Odynophagia Status: Acute (2) Laryngeal mass Status: Ruled-out (3) Abnormal CT scan, neck Status: Ruled-out (4) Dysphagia Status: Acute (5) Gastric cancer Status: Resolved (6) Weight loss Status: Acute
[2017-02-02] MEDS: Lactated Ringer's 500 ML IV SCH ×2 (12:04→16:55)
[2017-02-02] MEDS ORDERED: ceFAZolin IV 1 gm in Dextrose 1 GM/50 ML BAG IVPB ONE (15:30)
[2017-02-02] MEDS ORDERED: Lidocaine 1% Inj (20ml) ONE (15:30)
[2017-02-02] MEDS ORDERED: Sodium Chloride 0.9% 500 ML IV ONE (15:30)
[2017-02-02] MEDS ORDERED: Midazolam 2 MG/2 ML VIAL ONE (15:41)
[2017-02-02] MEDS ORDERED: Oxycodone/Acetaminophen 5/325 mg Tab PO PRN (16:10)
--- NOTE | 2017-02-02 16:12 | PCM.SURG1 ---
Surgeon's Initial Post Op Note - Surgeon's Notes Surgeon: Dr. Traylor Tool Operator: Justin Bartholomew PGY2 Type of Anesthesia: IV Sedation, Local Pre-Operative Diagnosis: SP chemo Operative Findings: Chemoport Post-Operative Diagnosis: Same Operation Performed: REmoval of chemoport Specimen/Specimens Removed: Chemoport Estimated Blood Loss: EBL {In ML}: 5 Blood Products Given: N/A Drains Used: No Drains Post-Op Condition: Good Date of Surgery/Procedure: 02/02/17 Time of Surgery/Procedure: 16:11
[2017-02-02] MEDS ORDERED: HYDROmorphone 0.5 mg/0.5 ml ISec IVP PRN (16:28)
[2017-02-02] MEDS ORDERED: Sodium Chloride 0.9% 1,000 ML IV SCH (16:30)
[2017-02-02 17:19] VITALS: RESP 20
--- NOTE | 2017-02-02 18:31 | CP.PCM.PN ---
Subjective - Date & Time of Evaluation Date of Evaluation: 02/02/17 Time of Evaluation: 18:26 - Subjective Subjective: Patient today complaining of some sore throat. He underwent upper endoscopy today, showing evidence of esophagitis. He is feeling otherwise well. The Port-A-Cath was removed today. He denies any chest pain or shortness of breath. Denies any nausea vomiting. Intake is slightly improvement noted. Vital signs reviewed No neck vein distention noted Chest good air entry bilaterally, no wheezing or rales noted CVS regular heart sound, no murmur noted Abdomen soft, nontender. Extremities no pedal edema MOLDER TRIMMER alert awake oriented 3, no functional neurological deficit Patient's labs reviewed in Potassium level is on the low side. We'll supplement. Clinically stable. We'll possibly discharge the patient in the morning. I advised him about the diet. We'll get the nutritional evaluation. Will follow the patient Objective - Vital Signs/Intake and Output Vital Signs (last 24 hours): Temp Pulse Resp BP Pulse Ox 98.3 F 88 20 110/64 98 02/02/17 17:18 02/02/17 17:18 02/02/17 17:18 02/02/17 17:18 02/02/17 17:18 Intake and Output: 02/02/17 02/02/17 06:59 18:59 Intake Total 200 Balance 200 - Medications Medications: Current Medications Benzocaine/Menthol (Cepacol Sore Throat) 1 germania MT Q4 PRN PRN Reason: Sore Throat Last Admin: 02/01/17 14:13 Dose: 1 germania Famotidine (Pepcid) 20 mg IVP DAILY [facility] Last Admin: 02/02/17 09:47 Dose: 20 mg Heparin Sodium (Porcine) (Heparin) 5,000 units SC Q8 [facility] Last Admin: 02/02/17 13:09 Dose: Not Given Hydromorphone HCl (Dilaudid) 0.5 mg IVP Q10M PRN PRN Reason: Pain, moderate (4-7) Stop: 02/02/17 18:32 Lactated Ringer's (Lactated Ringer's 500ml) 500 mls @ 75 mls/hr IV .Q6H40M [facility] Last Admin: 02/02/17 12:04 Dose: Not Given Sodium Chloride (Sodium Chloride 0.9%) 1,000 mls @ 100 mls/hr IV .Q10H [facility] Megestrol Acetate (Megace) 40 mg PO Q8 [facility] Last Admin: 02/02/17 13:09 Dose: Not Given Multivitamins/Vitamin C (Multi-Delyn Liquid) 5 ml PO DAILY [facility] Last Admin: 02/02/17 09:44 Dose: Not Given Ondansetron HCl (Zofran Inj) 4 mg IVP Q6 PRN PRN Reason: Nausea/Vomiting Last Admin: 02/01/17 13:02 Dose: 4 mg Ondansetron HCl (Zofran Inj) 4 mg IVP ONCE PRN PRN Reason: Nausea/Vomiting Stop: 02/02/17 18:33 Oxycodone/Acetaminophen (Percocet 5/325 Mg Tab) 2 tab PO Q4H PRN PRN Reason: Pain, moderate (4-7) Stop: 02/05/17 16:11 Sucralfate (Carafate Oral Susp) 1 gm PO QID [facility] Last Admin: 02/02/17 13:09 Dose: Not Given Zolpidem Tartrate (Ambien) 5 mg PO HS PRN PRN Reason: Insomnia Last Admin: 02/01/17 21:57 Dose: 5 mg - Labs Labs: 02/02/17 08:55 02/02/17 08:55 PT 14.1 SECONDS (9.7-12.2) H 01/29/17 18:06 INR 1.3 01/29/17 18:06 APTT 33 SECONDS (21-34) 01/30/17 08:20
[2017-02-02] MEDS: Nystatin 100,000 Units/ml Oral Susp 5 ml UD PO SCH (21:52)
[2017-02-03 01:10] VITALS: O2SAT 99
--- NOTE | 2017-02-03 01:31 | OP ---
PROCEDURE DATE: 02/02/2017 PREOPERATIVE DIAGNOSIS: Unnecessary intravascular device Port-A-Cath. POSTOPERATIVE DIAGNOSIS: Unnecessary intravascular device Port-A-Cath. OPERATION CARRIED OUT: Removal of double Port-A-Cath, right jugular vein. SURGEON: Abner Allred Jr., MD PHYSICIAN COMPENSATION ANALYST: Dr. Garrido. ANESTHESIOLOGIST: Ev Johnson MD INDICATIONS: A 66-year-old man with diagnoses of stomach cancer, who requires port removal. FINDINGS: Port-A-Cath was removed uneventfully. DESCRIPTION OF PROCEDURE: The patient was given local anesthesia, intravenous sedation. Port previously on the right chest wall was removed. After obtaining hemostasis, wound was closed. No operative complications or problems. BLOOD LOSS: Minimal. Abner Allred Jr., MD
[2017-02-03] MEDS: Megestrol Acetate 40 mg/ml Cup PO SCH ×2 (05:42→13:30)
--- NOTE | 2017-02-03 07:31 | CP.PCM.PN ---
Subjective - Date & Time of Evaluation Date of Evaluation: 02/03/17 Time of Evaluation: 07:27 - Subjective Subjective: Patient was seen and examined at bedside in no acute distress. Patient reports feeling nauseas and "vomiting up saliva". 12 point review of systems otherwise negative. Objective - Vital Signs/Intake and Output Vital Signs (last 24 hours): Temp Pulse Resp BP Pulse Ox 97.9 F 73 20 104/60 99 02/03/17 00:00 02/03/17 00:00 02/03/17 00:00 02/03/17 00:00 02/03/17 00:00 Intake and Output: 02/03/17 02/03/17 06:59 18:59 Intake Total 420 Balance 420 - Medications Medications: Current Medications Famotidine (Pepcid) 20 mg IVP DAILY [facility] Last Admin: 02/02/17 09:47 Dose: 20 mg Heparin Sodium (Porcine) (Heparin) 5,000 units SC Q8 [facility] Last Admin: 02/03/17 05:42 Dose: Not Given Lactated Ringer's (Lactated Ringer's 500ml) 500 mls @ 75 mls/hr IV .Q6H40M [facility] Last Admin: 02/03/17 00:00 Dose: Not Given Megestrol Acetate (Megace) 40 mg PO Q8 [facility] Last Admin: 02/03/17 05:42 Dose: 40 mg Multivitamins/Vitamin C (Multi-Delyn Liquid) 5 ml PO DAILY [facility] Last Admin: 02/02/17 09:44 Dose: Not Given Nystatin (Nystatin Oral Susp) 5 ml PO QID [facility] Last Admin: 02/02/17 21:52 Dose: 5 ml Sucralfate (Carafate Oral Susp) 1 gm PO QID [facility] Last Admin: 02/02/17 21:52 Dose: 1 gm Zolpidem Tartrate (Ambien) 5 mg PO HS PRN PRN Reason: Insomnia Last Admin: 02/02/17 22:24 Dose: 5 mg - Labs Labs: 02/02/17 08:55 02/02/17 08:55 PT 14.1 SECONDS (9.7-12.2) H 01/29/17 18:06 INR 1.3 01/29/17 18:06 APTT 33 SECONDS (21-34) 01/30/17 08:20 - Head Exam Head Exam: ATRAUMATIC, NORMAL INSPECTION - Eye Exam Eye Exam: EOMI - ENT Exam ENT Exam: Mucous Membranes Moist - Respiratory Exam Respiratory Exam: Decreased Breath Sounds, Clear to Ausculation Bilateral, NORMAL BREATHING PATTERN. absent: Rhonchi, Wheezes, Respiratory Distress - Cardiovascular Exam Cardiovascular Exam: REGULAR RHYTHM, +S1, +S2. absent: Bradycardia, Tachycardia - GI/Abdominal Exam GI & Abdominal Exam: Soft, Normal Bowel Sounds. absent: Distended, Tenderness - Extremities Exam Extremities Exam: absent: Calf Tenderness, Pedal Edema, Tenderness - Neurological Exam Neurological Exam: Alert, Awake - Psychiatric Exam Psychiatric exam: Normal Affect, Normal Mood - Skin Skin Exam: Dry, Intact, Normal Color, Warm Additional comments: Dressing: clean, dry, intact. Assessment and Plan - Assessment and Plan (Free Text) Assessment: 66 year old male s/p port removal, POD#1. - No surgical intervention at this time. - Continue medical management as per hospitalist team.
[2017-02-03 08:14] VITALS: BP 105/64; PULSE 85; TEMP 98.7
[2017-02-03] MEDS: Sucralfate 1 gm/10 ml Oral Susp UD PO SCH ×2 (10:15→13:30)
[2017-02-03] MEDS: Nystatin 100,000 Units/ml Oral Susp 5 ml UD PO SCH ×2 (10:15→13:30)
[2017-02-03] MEDS: Multiple Vitamins Oral Solution PO SCH (10:16)
[2017-02-03] MEDS: Lactated Ringer's 500 ML IV SCH ×2 (13:31)
--- NOTE | 2017-02-03 15:18 | CP.PCM.PN ---
Subjective - Date & Time of Evaluation Date of Evaluation: 02/03/17 Time of Evaluation: 11:00 - Subjective Subjective: awake, alert, no acute distress. Objective - Vital Signs/Intake and Output Vital Signs (last 24 hours): Temp Pulse Resp BP Pulse Ox 98.7 F 85 20 105/64 99 02/03/17 08:13 02/03/17 08:13 02/03/17 08:13 02/03/17 08:13 02/03/17 08:13 Intake and Output: 02/03/17 02/03/17 06:59 18:59 Intake Total 420 Balance 420 - Medications Medications: Current Medications Famotidine (Pepcid) 20 mg IVP DAILY [facility] Last Admin: 02/03/17 10:15 Dose: 20 mg Heparin Sodium (Porcine) (Heparin) 5,000 units SC Q8 [facility] Last Admin: 02/03/17 13:30 Dose: 5,000 units Lactated Ringer's (Lactated Ringer's 500ml) 500 mls @ 75 mls/hr IV .Q6H40M [facility] Last Admin: 02/03/17 13:31 Dose: Not Given Megestrol Acetate (Megace) 40 mg PO Q8 [facility] Last Admin: 02/03/17 13:30 Dose: 40 mg Multivitamins/Vitamin C (Multi-Delyn Liquid) 5 ml PO DAILY [facility] Last Admin: 02/03/17 10:16 Dose: 5 ml Nystatin (Nystatin Oral Susp) 5 ml PO QID [facility] Last Admin: 02/03/17 13:30 Dose: 5 ml Sucralfate (Carafate Oral Susp) 1 gm PO QID [facility] Last Admin: 02/03/17 13:30 Dose: 1 gm Zolpidem Tartrate (Ambien) 5 mg PO HS PRN PRN Reason: Insomnia Last Admin: 02/02/17 22:24 Dose: 5 mg - Labs Labs: 02/02/17 08:55 02/02/17 08:55 PT 14.1 SECONDS (9.7-12.2) H 01/29/17 18:06 INR 1.3 01/29/17 18:06 APTT 33 SECONDS (21-34) 01/30/17 08:20 Assessment and Plan - Assessment and Plan (Free Text) Assessment: Patient is seen and examined. Has dysphgia, no acute pain, tolerated mostly liquid diet. D/W DR Garcia, discharge plan to home with home care, VNS for continous assistance with ADL. Advised to follow up in the office in 1 week. Also to f/u with GI in 1-2 weeks.
--- NOTE | 2017-02-20 17:36 | CP.PCM.PN ---
Subjective - Date & Time of Evaluation Date of Evaluation: 01/31/17 Time of Evaluation: 17:36 - Subjective Subjective: Patient does not want to be resuscitated. He does not want to have chemotherapy anymore. He wants the Port-A-Cath to be remote. Will get the surgery for that. Seen by broadcast maintenance technician. Clinical stable. Eating very poorly clinical examination unremarkable Will continue the current treatment. Possible discharge plan tomorrow Objective - Vital Signs/Intake and Output Vital Signs (last 24 hours): Temp Pulse Resp BP Pulse Ox 98.7 F 85 20 105/64 99 02/03/17 08:13 02/03/17 08:13 02/03/17 08:13 02/03/17 08:13 02/03/17 08:13 - Labs Labs: 02/02/17 08:55 02/02/17 08:55 PT 14.1 SECONDS (9.7-12.2) H 01/29/17 18:06 INR 1.3 01/29/17 18:06 APTT 33 SECONDS (21-34) 01/30/17 08:20
--- NOTE | 2017-02-20 17:36 | CP.PCM.DIS ---
Provider - Provider Date of Admission: 01/30/17 14:32 Attending physician: Miranda Garcia MD Time Spent in preparation of Discharge (in minutes): 45 Hospital Course - Lab Results Lab Results: Most Recent Lab Values WBC 3.3 K/uL (4.8-10.8) L 02/02/17 08:55 RBC 3.66 Mil/uL (4.40-5.90) L 02/02/17 08:55 Hgb 11.2 g/dL (12.0-18.0) L 02/02/17 08:55 Hct 32.6 % (35.0-51.0) L 02/02/17 08:55 MCV 89.1 fL (80.0-94.0) 02/02/17 08:55 MCH 30.7 pg (27.0-31.0) 02/02/17 08:55 MCHC 34.5 g/dL (33.0-37.0) 02/02/17 08:55 RDW 16.5 % (11.5-14.5) H 02/02/17 08:55 Plt Count 160 K/uL (130-400) 02/02/17 08:55 MPV 7.0 fL (7.2-11.7) L 02/02/17 08:55 Neut % (Auto) 32.8 % (50.0-75.0) L 02/01/17 07:19 Lymph % (Auto) 57.1 % (20.0-40.0) H 02/01/17 07:19 [place] % (Auto) 7.0 % (0.0-10.0) 02/01/17 07:19 Eos % (Auto) 2.5 % (0.0-4.0) 02/01/17 07:19 Baso % (Auto) 0.6 % (0.0-2.0) 02/01/17 07:19 Neut # 1.2 K/uL (1.8-7.0) L 02/01/17 07:19 Lymph # 2.1 K/uL (1.0-4.3) 02/01/17 07:19 Winn # 0.3 K/uL (0.0-0.8) 02/01/17 07:19 Eos # 0.1 K/uL (0.0-0.7) 02/01/17 07:19 Baso # 0.0 K/uL (0.0-0.2) 02/01/17 07:19 PT 14.1 SECONDS (9.7-12.2) H 01/29/17 18:06 INR 1.3 01/29/17 18:06 APTT 33 SECONDS (21-34) 01/30/17 08:20 Sodium 140 mmol/L (132-148) 02/02/17 08:55 Potassium 3.5 mmol/L (3.6-5.2) L 02/02/17 08:55 Chloride 106 mmol/L (98-107) 02/02/17 08:55 Carbon Dioxide 22 mmol/L (22-30) 02/02/17 08:55 Anion Gap 16 (10-20) 02/02/17 08:55 BUN 11 mg/dL (9-20) 02/02/17 08:55 Creatinine 0.7 MG/DL (0.8-1.5) L 02/02/17 08:55 Est GFR ( Amer) > 60 02/02/17 08:55 Est GFR (Non-Af Amer) > 60 02/02/17 08:55 Random Glucose 68 mg/dL (75-110) L 02/02/17 08:55 Calcium 9.5 mg/dl (8.6-10.4) 02/02/17 08:55 Total Bilirubin 0.5 mg/dL (0.2-1.3) 02/01/17 07:19 AST 16 U/L (17-59) L 02/01/17 07:19 ALT 23 U/L (21-72) 02/01/17 07:19 Alkaline Phosphatase 54 U/L (38-126) 02/01/17 07:19 Total Protein 5.6 g/dL (6.3-8.3) L 02/01/17 07:19 Albumin 3.2 g/dL (3.5-5.0) L D 02/01/17 07:19 Globulin 2.4 gm/dL (2.2-3.9) 02/01/17 07:19 Albumin/Globulin Ratio 1.3 (1.0-2.1) 02/01/17 07:19 Urine Color Yellow (YELLOW) 01/29/17 11:30 Urine Clarity Clear (Clear) 01/29/17 11:30 Urine pH 5.0 (5.0-8.0) 01/29/17 11:30 Ur Specific [place] 1.020 (1.003-1.030) 01/29/17 11:30 Urine Protein Negative mg/dL (NEGATIVE) 01/29/17 11:30 Urine Glucose (UA) Normal mg/dL (Normal) 01/29/17 11:30 Urine Ketones Negative mg/dL (NEGATIVE) 01/29/17 11:30 Urine Blood Negative (NEGATIVE) 01/29/17 11:30 Urine Nitrate Negative (NEGATIVE) 01/29/17 11:30 Urine Bilirubin Negative (NEGATIVE) 01/29/17 11:30 Urine Urobilinogen 4.0 mg/dL (0.2-1.0) 01/29/17 11:30 Ur Leukocyte Esterase Neg [place]/uL (Negative) 01/29/17 11:30 Urine WBC (Auto) 1 /hpf (0-5) 01/29/17 11:30 Urine RBC (Auto) < 1 /hpf (0-3) 01/29/17 11:30 Ur Squamous Epith Cells < 1 /hpf (0-5) 01/29/17 11:30 - Hospital Course Hospital Course: Chief complaint: Difficulty in swallowing, weight loss. History present illness: 66-year-old male with history of hypertension, osteoarthritis, history of chronic neck pain, bronchial asthma. Patient was diagnosed with the gastric cancer, with a lymph node metastasis. Patient underwent total gastrectomy, and esophagojejunostomy. Lymph node dissection was done. And prior to that patient underwent neoadjuvant therapy, and he received one dose of chemotherapy. After that the patient refused further chemotherapy. Patient came to the office with the increasing symptoms of weight loss, not eating well. Some difficulty in taking solid food, even sometimes difficulty in swallowing the liquid diet. Is also having some difficulty in talking. He's also having some difficulty in eating well. Weight loss noted. After eating some more food, he started feeling nauseated and episodes of vomiting noted. Minimal cough. Past medical history as noted above. Allergy no known drug allergy. Personal history none smoker, nonalcoholic. Review of system noted from the chart. On examination: On examination: HEENT PERRLA, neck supple, significant weight loss noted No thyromegaly was noted and no cervical adenopathy noted Chest bilateral good air entry, no wheezing or rales noted CVS regular heart sound, no murmur Abdomen soft and no organomegaly Extremities no pedal edema, no leg swelling, pedal pulses are good. 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 Labs reviewed. Nonspecific. Assessment and recommendation: 66-year-old male with history of hypertension, osteoarthritis, chronic back, neck pain, bronchial asthma, with the gastric cancer, status post surgery. Now having significant dysphagia, and also difficulty in talking. Underlaying metastatic disease cannot be ruled out. Will get a GI evaluation, CAT scan of the neck in the soft tissues advised. Nutritional supplementation, IV fluid. And will follow the patient He was seen by cattle manager. Also seen the ENT specialist. Underwent upper endoscopy. There was no evidence of any metastatic disease is near esophagus, jejunum junction. Patient underwent esophagojejunostomy. No evidence of any metastatic disease a nearby Patient also underwent the oropharyngeal evaluation, nonspecific. Patient was having some difficulty in eating Patient also does not want to have a Port-A-Cath, which was removed by Dr. Allred on the day of discharge. Currently patient is stable. He will be discharged home, he will continue the current supportive treatment, and supplements. Follow-up as an outpatient Discharge Exam - Head Exam Head Exam: ATRAUMATIC, NORMAL INSPECTION Discharge Plan - Discharge Medications Prescriptions: Nystatin [Nystatin Oral Susp] 5 ml PO QID #100 ml - Follow Up Plan Condition: STABLE Disposition: HOME/ ROUTINE Instructions: Nystatin (By mouth), Weight Management (DC) Referrals: Miranda Garcia MD [Staff Provider] - Ponce Canas MD [Staff Provider] -
== END 2017-02-03 17:00 | disposition home or self-care (01) | DRG 392 ==
LOC: C.ER 10:16 → C.9E 11:41 → INTOOBSV 14:32 → OBSVTOIN 14:32 → C.3T 18:54 → OBSVTOIN 01-30 14:32 → C.3T 02-01 08:06
PROVIDERS: ADMIT Internal Medicine; ATTEND Internal Medicine
PROC: 0CJS8ZZ Inspection of Larynx, Via Natural or Artificial Opening Endoscopic (ICD-10-PCS; principal; 2017-01-31)
PROC: 0JPT0XZ Removal of Tunneled Vascular Access Device from Trunk Subcutaneous Tissue and Fascia, Open Approach (ICD-10-PCS; 2017-02-02)
PROC: 0DB88ZX Excision of Small Intestine, Via Natural or Artificial Opening Endoscopic, Diagnostic (ICD-10-PCS; 2017-02-02)
DX: K21.0 Gastro-esophageal reflux disease with esophagitis (principal); C16.9 Malignant neoplasm of stomach, unspecified; C77.9 Secondary and unspecified malignant neoplasm of lymph node, unspecified; I10 Essential (primary) hypertension; J38.7 Other diseases of larynx; E86.0 Dehydration; D50.9 Iron deficiency anemia, unspecified; R13.10 Dysphagia, unspecified; J45.909 Unspecified asthma, uncomplicated; R63.4 Abnormal weight loss; B37.9 Candidiasis, unspecified; Z66 Do not resuscitate; Z90.3 Acquired absence of stomach [part of]; E78.00 Pure hypercholesterolemia, unspecified

== ENCOUNTER 2017-05-02 14:33 | Inpatient (IN) | payer MEDICARE, OTHER ==
[2017-05-02 14:40] VITALS: BMI 17.9
[2017-05-02] MEDS ORDERED: Sodium Chloride 0.9% 500 ML IV ONE (15:53)
[2017-05-02 16:15] LABS: BASO % 0.7 % (0.0-2.0); EOS # 0.1 K/uL (0.0-0.7); EOS % 1.6 % (0.0-4.0); HEMATOCRIT 33.2 % (35.0-51.0); LYMPH # 2.2 K/uL (1.0-4.3); LYMPH % 45.8 % (20.0-40.0); MEAN CORPUSCULAR HEMOGLOBIN 31.4 pg (27.0-31.0); MEAN CORPUSCULAR HGB CONC 34.1 g/dL (33.0-37.0); MEAN PLATELET VOLUME 6.7 fL (7.2-11.7); MONO # 0.4 K/uL (0.0-0.8); MONO % 8.5 % (0.0-10.0); NRBC % 0.1 % (0.0-2.0); RED CELL DISTRIBUTION WIDTH 15.3 % (11.5-14.5); WHITE BLOOD COUNT 4.8 K/uL (4.8-10.8)
[2017-05-02 16:18] LABS: MEAN CELL VOLUME 92.3 fL (80.0-94.0)
[2017-05-02 16:44] LABS: ALKALINE PHOSPHATASE 50 U/L (38-126); ALT/SGPT 22 U/L (21-72); AST/SGOT 17 U/L (17-59); BILIRUBIN,TOTAL 0.6 mg/dL (0.2-1.3); BLOOD UREA NITROGEN 8 mg/dL (9-20); CALCIUM 8.5 mg/dl (8.6-10.4); CARBON DIOXIDE 26 mmol/L (22-30); CHLORIDE 101 mmol/L (98-107); GFR AFRICAN-AMERICAN > 60; GLUCOSE,RANDOM 73 mg/dL (75-110); SODIUM 136 mmol/L (132-148); TOTAL PROTEIN 5.6 g/dL (6.3-8.3)
[2017-05-02 16:47] LABS: ALB/GLOB RATIO 1.6 (1.0-2.1)
--- NOTE | 2017-05-02 16:50 | C.PDOC ---
History Of Present Illness [facility] Rahel Lange is a 66 year old male, with a past medical history of asthma , who presents to the emergency department complaining of losing weight, difficulty swallowing, occasional dizziness and palpations, decrease urine output, and bony pain at tip of sternum. Patient states he was 200 lbs before the surgery and he is now approximately 110 lbs. He reports having difficulty eating after the stomach surgery, but is able to drink water. He denies any vomit, diarrhea, headache or chest pain. No further medical complaints. PMD: Miranda Garcia Time Seen by Provider: 05/02/17 15:40 Chief Complaint (Nursing): Medical Clearance History Per: Patient History/Exam Limitations: no limitations Onset/Duration Of Symptoms: Days Current Symptoms Are (Timing): Still Present Past Medical History Reviewed: Historical Data, Nursing Documentation, Vital Signs Vital Signs: Last Vital Signs Temp 97.9 F 05/05/17 08:39 Pulse 110 H 05/05/17 08:39 Resp 20 05/05/17 08:39 BP 110/70 05/05/17 08:39 Pulse Ox 99 05/05/17 08:39 - Medical History PMH: Anemia (IRON DEFICIENCY), Arthritis (NECK), Asthma, Depression (NOT TAKING MED. ANYMORE; CLAIMS FEELS BETTER), HTN, Hypercholesterolemia Denies: Colonic Polyps, Fractures, Chronic Kidney Disease Surgical History: Endoscopy Denies: Pacemaker, Tonsillectomy - [facility] Procedures COLONOSCOPY (06/24/14) CORONAR ARTERIOGR-2 CATH (07/31/05) EXCISION OF SMALL INTESTINE, ENDO, DIAGN (01/30/17) INSPECTION OF LARYNX, ENDO (01/30/17) INTRODUCTION OF NUTRITIONAL INTO PERIPH VEIN, PERC APPROACH (05/02/17) LEFT HEART CARDIAC CATH (07/31/05) LT HEART ANGIOCARDIOGRAM (07/31/05) REMOVAL OF VAD FROM TRUNK SUBCU/FASCIA, OPEN APPROACH (01/30/17) Family History: States: Unknown Family Hx - Social History Hx Tobacco Use: No Hx Alcohol Use: No Hx Substance Use: No - Immunization History Hx Tetanus Toxoid Vaccination: No Hx Influenza Vaccination: Yes Hx Pneumococcal Vaccination: No Review Of Systems Except As Marked, All Systems Reviewed And Found Negative. ENT: Positive for: Other (Difficulty swallowing) Cardiovascular: Positive for: Palpitations (occasional) Genitourinary: Positive for: Other (decreased urine output) Musculoskeletal: Positive for: Other (tip of sternum bony pain) Neurological: Positive for: Dizziness (occasional) Physical Exam - Physical Exam Skin: Warm, Dry, Pale Head: Atraumatic Eye(s): bilateral: Normal Inspection, PERRL, EOMI Neck: Normal, Normal ROM, Supple Cardiovascular: Rhythm Regular Respiratory: Normal Breath Sounds, No Accessory Muscle Use Gastrointestinal/Abdominal: Normal Exam, Soft, No Tenderness, No Guarding, No Rebound Extremity: Normal ROM, No Pedal Edema, No Deformity, No Swelling Neurological/Psych: Oriented x3, Normal Speech ED Course And Treatment - Laboratory Results Result Diagrams: 05/04/17 07:13 05/04/17 07:13 O2 Sat by Pulse Oximetry: 100 (RA) Pulse Ox Interpretation: Normal Medical Decision Making Medical Decision Making: Initial Impression: dehydration Initial Plan: Comp Metabolic Panel CBC w/ differential NS IV 500 ml @ 1,000 mls/hr Urinalysis reevaluation 16:50 -Spoke with Dr. Garcia who wants to admit him due to loss of such significant amount of weight. Disposition Discussed With : Miranda Garcia Counseled Patient/Family Regarding: Studies Performed, Diagnosis - Disposition Disposition: HOSPITALIZED Disposition Time: 16:50 Condition: GUARDED - Clinical Impression Clinical Impression: Malnutrition - Scribe Statement Rico Becerra Provider Attestation: All medical record entries made by the Scribe were at my direction and personally dictated by me. I have reviewed the chart and agree that the record accurately reflects my personal performance of the history, physical exam, medical decision making, and the department course for this patient. I have also personally directed, reviewed, and agree with the discharge instructions and disposition. Decision To Admit - Pt Status Changed To: Hospital Disposition Of: Inpatient - Admit Certification Admit to Inpatient:: After my assessment, the patient will require hospitalization for at least two midnights. This is because of the severity of symptoms shown, intensity of services needed, and/or the medical risk in this patient being treated as an outpatient. - InPatient: Physician Admission Certification: I certify that this patient requires 2 or more midnights of care for the following reason:: unable to tolerate PO, losing massive weight - . Bed Request Type: Regular Patient Diagnosis: Malnutrition
[2017-05-02 17:47] LABS: RBC URINE 6 /hpf (0-3); URINE BILIRUBIN NEGATIVE (NEGATIVE); URINE BLOOD 1+ (NEGATIVE); URINE CALCIUM OXALATE CRYSTALS OCC /hpf (<OCC); URINE COLOR Yellow (YELLOW); URINE GLUCOSE (UA) NORMAL (Normal); URINE KETONE TRACE mg/dL (NEGATIVE); URINE LEUKOCYTE ESTERASE NEG Leu/uL (Negative); URINE PROTEIN NEGATIVE (NEGATIVE); WBC URINE 2 /hpf (0-5)
--- NOTE | 2017-05-02 18:51 | CP.PCM.HP ---
History of Present Illness - History of Present Illness History of Present Illness: chief complaint: Difficulty in swallowing, weight loss. History present illness: 66-year-old male with history of hypertension, osteoarthritis, history of chronic neck pain, bronchial asthma. Patient was diagnosed with the gastric cancer, with a lymph node metastasis. Patient underwent total gastrectomy, and esophagojejunostomy. Lymph node dissection was done. And prior to that patient underwent neoadjuvant therapy, and post op he received one dose of chemotherapy. After that the patient refused further chemotherapy. Patient came to the office with the increasing symptoms of weight loss, not eating well. Some difficulty in taking solid food, even sometimes difficulty in swallowing the liquid diet. Is also having some difficulty in talking. He's also having some difficulty in eating well. Weight loss noted. After eating some more food, he started feeling nauseated and episodes of vomiting noted. Minimal cough. Past medical history as noted above. Allergy no known drug allergy. Personal history none smoker, nonalcoholic. Review of system noted from the chart. On examination: On examination: HEENT PERRLA, neck supple, significant weight loss noted No thyromegaly was noted and no cervical adenopathy noted Chest bilateral good air entry, no wheezing or rales noted CVS regular heart sound, no murmur Abdomen soft and no organomegaly Extremities no pedal edema, no leg swelling, pedal pulses are good. 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 Labs reviewed. Nonspecific. Assessment and recommendation: 66-year-old male with history of hypertension, osteoarthritis, chronic back, neck pain, bronchial asthma, with the gastric cancer, status post surgery. Now having significant dysphagia, and also difficulty in talking. severe malnutrition and wt loss pt with cancer cachexia with severe protein calorie malnutrition Present on Admission - Present on Admission Any Indicators Present on Admission: No History of DVT/PE: No History of Uncontrolled Diabetes: No Urinary Catheter: No Decubitus Ulcer Present: No Past Patient History - Past Medical History & Family History Past Medical History?: Yes - Past Social History Smoking Status: Never Smoked - CARDIAC Hx Hypercholesterolemia: Yes Hx Hypertension: Yes Hx Pacemaker: No - PULMONARY Hx Asthma: Yes - NEUROLOGICAL Hx Neurological Disorder: Yes HX Cerebrovascular Accident: No Hx Dizziness: Yes Hx Paralysis: No - HEENT Hx HEENT Problems: Yes Hx Cataracts: Yes (RIGHT EYE, RECENTLY REMOVED, 04/05/16) - RENAL Hx Chronic Kidney Disease: No - ENDOCRINE/METABOLIC Hx Endocrine Disorders: No - HEMATOLOGICAL/ONCOLOGICAL Hx Anemia: Yes (IRON DEFICIENCY) - INTEGUMENTARY Hx Dermatological Problems: No - MUSCULOSKELETAL/RHEUMATOLOGICAL Hx Arthritis: Yes (NECK) Hx Fractures: No - GASTROINTESTINAL Hx Gastrointestinal Disorders: Yes Hx Fatty Liver Disease: Yes Hx Hemorrhoids: Yes (WITH BLEEDING) Other/Comment: FATTY LIVER, COLONOSCOPY 07/06; stomach Ca - GENITOURINARY/GYNECOLOGICAL Hx Genitourinary Disorders: No - PSYCHIATRIC Hx Depression: Yes (NOT TAKING MED. ANYMORE; CLAIMS FEELS BETTER) Hx Substance Use: No - SURGICAL HISTORY Hx Tonsillectomy: No - ANESTHESIA Hx Anesthesia: Yes Hx Anesthesia Reactions: No Hx Malignant Hyperthermia: No Meds Allergies/Adverse Reactions: Allergies Allergy/AdvReac Type Severity Reaction Status Date / Time No Known Allergies Allergy Verified 01/29/17 10:38 Results - Vital Signs Recent Vital Signs: Last Vital Signs Temp 97.8 F 05/02/17 17:41 Pulse 71 05/02/17 17:41 Resp 18 05/02/17 17:41 BP 119/69 05/02/17 17:41 Pulse Ox 100 05/02/17 17:41 - Labs Result Diagrams: 05/02/17 16:11 05/02/17 16:11 Labs: Laboratory Results - last 24 hr 05/02/17 05/02/17 05/02/17 16:11 16:11 17:22 WBC 4.8 RBC 3.60 L Hgb 11.3 L Hct 33.2 L MCV 92.3 D MCH 31.4 H MCHC 34.1 RDW 15.3 H Plt Count 188 MPV 6.7 L Neut % (Auto) 43.4 L Lymph % (Auto) 45.8 H [place] % (Auto) 8.5 Eos % (Auto) 1.6 Baso % (Auto) 0.7 Neut # 2.1 Lymph # 2.2 [place] # 0.4 Eos # 0.1 Baso # 0.0 Sodium 136 Potassium 3.0 L Chloride 101 Carbon Dioxide 26 Anion Gap 12 BUN 8 L Creatinine 0.5 L Est GFR ( Amer) > 60 Est GFR (Non-Af Amer) > 60 Random Glucose 73 L Calcium 8.5 L Total Bilirubin 0.6 AST 17 ALT 22 Alkaline Phosphatase 50 Total Protein 5.6 L Albumin 3.5 Globulin 2.1 L Albumin/Globulin Ratio 1.6 Urine Color Yellow Urine Clarity Clear Urine pH 6.0 Ur Specific [place] 1.020 Urine Protein Negative Urine Glucose (UA) Normal Urine Ketones Trace Urine Blood 1+ H Urine Nitrate Negative Urine Bilirubin Negative Urine Urobilinogen 4.0 Ur Leukocyte Esterase Neg Urine WBC (Auto) 2 Urine RBC (Auto) 6 H Calcium Oxalate Crystal Occ H
[2017-05-02] MEDS ORDERED: Dextrose 5%/0.9% NS 1,000 ML IV SCH (20:00)
[2017-05-02] MEDS: Potassium Chloride 40 MEQ in Dextrose 5%/0.9% NS 1,000 ML IV SCH (20:30)
[2017-05-03 00:30] VITALS: RESP 20
[2017-05-03] MEDS: Potassium Chloride 40 MEQ in Dextrose 5%/0.9% NS 1,000 ML IV SCH (06:51)
[2017-05-03] MEDS ORDERED: PPN #1 IV SCH (18:00)
--- NOTE | 2017-05-03 23:13 | CP.PCM.PN ---
Subjective - Date & Time of Evaluation Date of Evaluation: 05/03/17 Time of Evaluation: 23:12 - Subjective Subjective: pt is getting ppn feels ok refused speech and swallow Objective - Vital Signs/Intake and Output Vital Signs (last 24 hours): Temp Pulse Resp BP Pulse Ox 98.4 F 81 20 134/74 99 05/03/17 15:00 05/03/17 15:13 05/03/17 15:00 05/03/17 15:13 05/03/17 15:13 Intake and Output: 05/03/17 05/04/17 18:59 06:59 Intake Total 800 565 Balance 800 565 clinically doing well no distress chest good air entry - Medications Medications: Current Medications Heparin Sodium (Porcine) (Heparin) 5,000 units SC Q8 [facility] Last Admin: 05/03/17 22:29 Dose: 5,000 units Parenteral Electrolytes 20 ml/Multivitamins/Vitamin C 10 ml / Chromium/Copper/ Manganese/Zinc 1 ml/ Amino Acids 1,031 mls @ 43 mls/hr IV .[id number] [facility] Last Admin: 05/03/17 17:51 Dose: 43 mls/hr Mirtazapine (Remeron) 7.5 mg PO HS [facility] Last Admin: 05/03/17 22:30 Dose: 7.5 mg Pantoprazole Sodium (Protonix Inj) 40 mg IVP DAILY [facility] Last Admin: 05/03/17 10:52 Dose: 40 mg - Labs Labs: 05/02/17 16:11 05/02/17 16:11 Assessment and Plan (1) Gastric carcinoma Status: Acute (2) Malnutrition Assessment & Plan: cancer cachexia malnutrition poor intake on PPN Status: Acute (3) Dysphagia Status: Acute (4) Weight loss Status: Acute
[2017-05-04 07:49] LABS: BASO % 0.6 % (0.0-2.0); EOS # 0.1 K/uL (0.0-0.7); EOS % 3.5 % (0.0-4.0); HEMATOCRIT 35.2 % (35.0-51.0); LYMPH # 2.4 K/uL (1.0-4.3); LYMPH % 63.2 % (20.0-40.0); MEAN CELL VOLUME 92.9 fL (80.0-94.0); MEAN CORPUSCULAR HEMOGLOBIN 31.4 pg (27.0-31.0); MEAN CORPUSCULAR HGB CONC 33.8 g/dL (33.0-37.0); MEAN PLATELET VOLUME 7.1 fL (7.2-11.7); MONO # 0.3 K/uL (0.0-0.8); MONO % 7.4 % (0.0-10.0); NRBC % 0.1 % (0.0-2.0); RED CELL DISTRIBUTION WIDTH 15.2 % (11.5-14.5); WHITE BLOOD COUNT 3.8 K/uL (4.8-10.8)
[2017-05-04 07:57] LABS: ALB/GLOB RATIO 1.6 (1.0-2.1); ALKALINE PHOSPHATASE 50 U/L (38-126); ALT/SGPT 26 U/L (21-72); AST/SGOT 15 U/L (17-59); BILIRUBIN,TOTAL 0.6 mg/dL (0.2-1.3); BLOOD UREA NITROGEN 6 mg/dL (9-20); CALCIUM 8.9 mg/dl (8.6-10.4); CARBON DIOXIDE 25 mmol/L (22-30); CHLORIDE 109 mmol/L (98-107); GFR AFRICAN-AMERICAN > 60; GLUCOSE,RANDOM 84 mg/dL (75-110); POTASSIUM 3.7 mmol/L (3.6-5.2); SODIUM 140 mmol/L (132-148); TOTAL PROTEIN 5.3 g/dL (6.3-8.3)
[2017-05-04] MEDS ORDERED: ZINC IV SCH (11:27)
[2017-05-04] MEDS ORDERED: [UNRECOGNIZED DRUG - OTHER] IV SCH (11:27)
[2017-05-04] MEDS ORDERED: MULTIVITAMIN IV SCH (11:27)
[2017-05-04] MEDS ORDERED: CHROMIUM IV SCH (11:27)
[2017-05-04] MEDS ORDERED: ELECTROLYTES IV SCH (11:27)
[2017-05-04] MEDS ORDERED: COPPER IV SCH (11:27)
[2017-05-04] MEDS ORDERED: MANGANESE IV SCH (11:27)
[2017-05-04] MEDS ORDERED: PPN# 2 IV ONE (18:00)
[2017-05-04] MEDS ORDERED: PPN#2 IV ONE (18:00)
[2017-05-05 08:41] VITALS: BP 110/70; PULSE 110; TEMP 97.9
--- NOTE | 2017-05-05 09:39 | CP.PCM.PN ---
Subjective - Date & Time of Evaluation Date of Evaluation: 05/04/17 Objective - Vital Signs/Intake and Output Vital Signs (last 24 hours): Temp Pulse Resp BP Pulse Ox 97.9 F 110 H 20 110/70 99 05/05/17 08:39 05/05/17 08:39 05/05/17 08:39 05/05/17 08:39 05/05/17 08:39 Intake and Output: 05/05/17 05/05/17 06:59 18:59 Intake Total 1615 Output Total 400 Balance 1215 - Medications Medications: Current Medications Heparin Sodium (Porcine) (Heparin) 5,[address] [facility] Last Admin: 05/05/17 05:25 Dose: 5,000 units Parenteral Electrolytes 20 ml/Multivitamins/Vitamin C 10 ml / Chromium/Copper/ Manganese/Zinc 1 ml/ Amino Acids 1,031 mls @ 65 mls/hr IV .[id number] Stop: 05/05/17 09:51 Last Admin: 05/04/17 18:00 Dose: 65 mls/hr Parenteral Electrolytes 20 ml/Chromium/Copper/Manganese/Zinc 1 ml/ Amino Acids 1,021 mls @ 65 mls/hr IV .[id number] [facility] Stop: 05/05/17 17:59 Mirtazapine (Remeron) 7.[address] [facility] Last Admin: 05/04/17 21:10 Dose: 7.5 mg Pantoprazole Sodium (Protonix Inj) [address] [facility] Last Admin: 05/05/17 09:12 Dose: 40 mg - Labs Labs: 05/04/17 07:13 05/04/17 07:13 Assessment and Plan (1) Gastric carcinoma Status: Acute (2) Malnutrition Status: Acute (3) Dysphagia Status: Acute (4) Weight loss Status: Acute
[2017-05-05] MEDS ORDERED: PPN#3 IV SCH (09:52)
--- NOTE | 2017-05-05 15:22 | CP.PCM.PN ---
Subjective - Date & Time of Evaluation Date of Evaluation: 05/05/17 Time of Evaluation: 11:00 - Subjective Subjective: Alert, awake, no complaints of pain, no acute distress. Objective - Vital Signs/Intake and Output Vital Signs (last 24 hours): Temp Pulse Resp BP Pulse Ox 97.9 F 110 H 20 110/70 99 05/05/17 08:39 05/05/17 08:39 05/05/17 08:39 05/05/17 08:39 05/05/17 08:39 Intake and Output: 05/05/17 05/05/17 06:59 18:59 Intake Total 1615 Output Total 400 Balance 1215 - Labs Labs: 05/04/17 07:13 05/04/17 07:13 Assessment and Plan - Assessment and Plan (Free Text) Assessment: Patient admitted with gastric cancer, depression, weight loss ,is seen and examined. Alert and orientedx3, on PPN, clinically stable. Poor po intake, patient wanted to go home. Discussed with DR Garcia, plan to discharge home , advised to come to the office for further care.
[2017-05-09 11:39] VITALS: O2SAT 100
== END 2017-05-05 14:52 | disposition home or self-care (01) | DRG 641 ==
LOC: C.ER 14:33 → C.9E 16:51 → C.3T 20:16
PROVIDERS: ADMIT Internal Medicine; ATTEND Internal Medicine
PROC: 3E0336Z Introduction of Nutritional Substance into Peripheral Vein, Percutaneous Approach (ICD-10-PCS; principal; 2017-05-02)
DX: E43 Unspecified severe protein-calorie malnutrition (principal); R64 Cachexia; C77.9 Secondary and unspecified malignant neoplasm of lymph node, unspecified; R13.10 Dysphagia, unspecified; E78.00 Pure hypercholesterolemia, unspecified; D50.9 Iron deficiency anemia, unspecified; C16.9 Malignant neoplasm of stomach, unspecified; Z68.1 Body mass index [BMI] 19.9 or less, adult; F32.9 Major depressive disorder, single episode, unspecified; I10 Essential (primary) hypertension; J45.909 Unspecified asthma, uncomplicated; G89.29 Other chronic pain; K76.0 Fatty (change of) liver, not elsewhere classified; Z85.028 Personal history of other malignant neoplasm of stomach

== ENCOUNTER 2017-08-12 09:19 | Emergency (ER) | payer MEDICARE, OTHER ==
[2017-08-12 09:19] VITALS: BMI 17.9
== END 2017-08-12 09:35 | disposition left against medical advice (07) ==
LOC: C.ER 09:19
DX: Z02.89 Encounter for other administrative examinations (principal)

== ENCOUNTER 2017-08-14 10:27 | Observation (INO) | payer MEDICARE, OTHER ==
[2017-08-14 10:27] VITALS: BMI 17.9
--- NOTE | 2017-08-14 11:46 | C.PDOC ---
History Of Present Illness 67-year-old male, PMHx includes stomach CA, Anemia and Hypertension, is sent to the emergency department by PMD with complaints of weight loss and decreased appetite. Patient is not on an chemotherapy or radiation for CA. All other Hx is limited. Time Seen by Provider: 08/14/17 11:10 Chief Complaint (Nursing): Medical Clearance Past Medical History Reviewed: Historical Data, Nursing Documentation, Vital Signs Vital Signs: Last Vital Signs Temp 97.5 F L 08/14/17 10:34 Pulse 68 08/14/17 12:52 Resp 16 08/14/17 12:52 BP 102/70 08/14/17 12:52 Pulse Ox 99 08/14/17 13:16 - Medical History PMH: Anemia (IRON DEFICIENCY), Arthritis (NECK), Asthma, Depression (NOT TAKING MED. ANYMORE; CLAIMS FEELS BETTER), HTN, Hypercholesterolemia Denies: Colonic Polyps, Fractures, Chronic Kidney Disease Surgical History: Endoscopy Denies: Pacemaker, Tonsillectomy - [facility] Procedures COLONOSCOPY (06/24/14) CORONAR ARTERIOGR-2 CATH (07/31/05) EXCISION OF SMALL INTESTINE, ENDO, DIAGN (01/30/17) INSPECTION OF LARYNX, ENDO (01/30/17) INTRODUCTION OF NUTRITIONAL INTO PERIPH VEIN, PERC APPROACH (05/02/17) LEFT HEART CARDIAC CATH (07/31/05) LT HEART ANGIOCARDIOGRAM (07/31/05) REMOVAL OF VAD FROM TRUNK SUBCU/FASCIA, OPEN APPROACH (01/30/17) Family History: States: No Known Family Hx - Social History Hx Tobacco Use: No Hx Alcohol Use: No Hx Substance Use: No - Immunization History Hx Tetanus Toxoid Vaccination: No Hx Influenza Vaccination: Yes Hx Pneumococcal Vaccination: No Review Of Systems Review Of Systems: ROS cannot be obtained secondary to pt's inabilty to answer questions. Physical Exam - Physical Exam Appears: Non-toxic, No Acute Distress (Thin-appearing, malnourished) Skin: Warm, Dry, No Rash Head: Normacephalic Eye(s): bilateral: PERRL Oral Mucosa: Dry Neck: Normal ROM Cardiovascular: Rhythm Regular, No Murmur Respiratory: Normal Breath Sounds, No Accessory Muscle Use Gastrointestinal/Abdominal: Soft, No Tenderness (well healed scar) Extremity: Normal ROM, No Deformity, No Swelling ED Course And Treatment - Laboratory Results Result Diagrams: 08/14/17 11:55 08/14/17 11:55 O2 Sat by Pulse Oximetry: 99 (RA) Pulse Ox Interpretation: Normal Medical Decision Making Medical Decision Making: Impression 67y/o, failure to thrive. Plan: * EKG * Labs * Reassess and Disposition Disposition Discussed With : Miranda Garcia Doctor Will See Patient In The: Hospital Counseled Patient/Family Regarding: Studies Performed, Diagnosis - Disposition Disposition: HOSPITALIZED Disposition Time: 11:44 Condition: FAIR - Clinical Impression Clinical Impression: Failure to thrive - Scribe Statement The provider has reviewed the documentation as recorded by the Scribe (Augusta Huertas) All medical record entries made by the Scribe were at my direction and personally dictated by me. I have reviewed the chart and agree that the record accurately reflects my personal performance of the history, physical exam, medical decision making, and the department course for this patient. I have also personally directed, reviewed, and agree with the discharge instructions and disposition.
[2017-08-14 11:59] LABS: BASO % 0.8 % (0.0-2.0); EOS % 1.6 % (0.0-4.0); HEMOGLOBIN 11.5 g/dL (12.0-18.0); LYMPH # 1.3 K/uL (1.0-4.3); LYMPH % 47.7 % (20.0-40.0); MEAN CELL VOLUME 92.9 fL (80.0-94.0); MEAN CORPUSCULAR HEMOGLOBIN 31.9 pg (27.0-31.0); MEAN CORPUSCULAR HGB CONC 34.3 g/dL (33.0-37.0); MEAN PLATELET VOLUME 6.8 fL (7.2-11.7); MONO # 0.2 K/uL (0.0-0.8); MONO % 8.8 % (0.0-10.0); NEUT # 1.1 K/uL (1.8-7.0); NEUT % 41.1 % (50.0-75.0); NRBC % 0.1 % (0.0-2.0); RBC 3.6 Mil/uL (4.40-5.90); RED CELL DISTRIBUTION WIDTH 14.9 % (11.5-14.5); WHITE BLOOD COUNT 2.8 K/uL (4.8-10.8)
[2017-08-14 12:12] LABS: ALB/GLOB RATIO 1.3 (1.0-2.1); ALBUMIN 3.5 g/dL (3.5-5.0); ALT/SGPT 19 U/L (21-72); AST/SGOT 18 U/L (17-59); BLOOD UREA NITROGEN 7 mg/dL (9-20); CALCIUM 9.3 mg/dl (8.6-10.4); GFR AFRICAN-AMERICAN > 60; GFR NON-AFRICAN AMERICAN > 60
[2017-08-14 12:19] LABS: INR 1.2; PROTHROMBIN TIME 13.6 SECONDS (9.7-12.2)
--- NOTE | 2017-08-14 12:57 | CP.PCM.HP ---
Addendum entered and electronically signed by Krysten Leach DO 08/16/17 10:02 : PICC line for TPN . Original Note: <Krysten Leach - Last Filed: 08/14/17 15:25> History of Present Illness - History of Present Illness History of Present Illness: Mr. Mcginnis is a 67 year old Male with PMHx Gastric Cancer with lymph node involvement s/p total gastrectomy and espohagojejunostomy with neoadjuvant therapy and lymph node resection and refusing chemotherapy admitted due to failure to thrive. Patient reports he continues to lose weight despite having an appetite and eating. He tolerates his diet, at times feeling nauseous, denied any vomiting. 12 point ROS unremarkable unless otherwise noted. PMHx: PMHx Gastric Cancer with lymph node involvement s/p total gastrectomy and espohagojejunostomy with neoadjuvant therapy and lymph node resection and refusing chemotherapy, HTN, OA, Asthma PSHx: Noted above All: NKDA SHx: Denied any tobacco, ETOH, or illicit drug use FHx: Unremarkable Present on Admission - Present on Admission Any Indicators Present on Admission: No Past Patient History - Past Medical History & Family History Past Medical History?: Yes - Past Social History Smoking Status: Never Smoked - CARDIAC Hx Hypercholesterolemia: Yes Hx Hypertension: Yes Hx Pacemaker: No - PULMONARY Hx Asthma: Yes - NEUROLOGICAL HX Cerebrovascular Accident: No - HEENT Hx HEENT Problems: Yes Hx Cataracts: Yes (RIGHT EYE, RECENTLY REMOVED, 04/05/16) - RENAL Hx Chronic Kidney Disease: No - ENDOCRINE/METABOLIC Hx Endocrine Disorders: No - HEMATOLOGICAL/ONCOLOGICAL Hx Anemia: Yes (IRON DEFICIENCY) - INTEGUMENTARY Hx Dermatological Problems: No - MUSCULOSKELETAL/RHEUMATOLOGICAL Hx Arthritis: Yes (NECK) Hx Fractures: No - GASTROINTESTINAL Hx Gastrointestinal Disorders: Yes Hx Fatty Liver Disease: Yes Hx Hemorrhoids: Yes (WITH BLEEDING) Other/Comment: FATTY LIVER, COLONOSCOPY 07/06; stomach Ca - GENITOURINARY/GYNECOLOGICAL Hx Genitourinary Disorders: No - PSYCHIATRIC Hx Depression: Yes (NOT TAKING MED. ANYMORE; CLAIMS FEELS BETTER) Hx Substance Use: No - SURGICAL HISTORY Hx Tonsillectomy: No - ANESTHESIA Hx Anesthesia: Yes Hx Anesthesia Reactions: No Hx Malignant Hyperthermia: No Meds Home Medications: Home Medication List Medication Instructions Recorded Confirmed Type Escitalopram [Lexapro] 1 tab PO DAILY #30 tab 08/16/17 Rx Megestrol Acetate [Megace] 400 mg PO DAILY #30 cup 08/16/17 Rx Allergies/Adverse Reactions: Allergies Allergy/AdvReac Type Severity Reaction Status Date / Time No Known Allergies Allergy Verified 01/29/17 10:38 Physical Exam - Constitutional Appears: No Acute Distress, Cachectic, Chronically Ill - Head Exam Head Exam: NORMAL INSPECTION, NORMOCEPHALIC - Eye Exam Eye Exam: EOMI, Normal appearance, PERRL Pupil Exam: NORMAL ACCOMODATION - ENT Exam ENT Exam: Mucous Membranes Moist - Respiratory Exam Respiratory Exam: Clear to Auscultation Bilateral, NORMAL BREATHING PATTERN. absent: Decreased Breath Sounds - Cardiovascular Exam Cardiovascular Exam: REGULAR RHYTHM - GI/Abdominal Exam GI & Abdominal Exam: Normal Bowel Sounds, Soft. absent: Distended, Organomegaly , Tenderness - Rectal Exam Rectal Exam: Deferred - Extremities Exam Extremities exam: Positive for: normal inspection, pedal pulses present. Negative for: pedal edema, tenderness - Back Exam Back exam: NORMAL INSPECTION - Neurological Exam Neurological exam: Alert, CN II-XII Intact, Oriented x3 - Psychiatric Exam Psychiatric exam: Normal Affect, Normal Mood - Skin Skin Exam: Dry, Intact, Normal Color, Warm Results - Vital Signs Recent Vital Signs: Last Vital Signs Temp 97.5 F L 08/14/17 10:34 Pulse 68 08/14/17 12:52 Resp 16 08/14/17 12:52 BP 102/70 08/14/17 12:52 Pulse Ox 99 08/14/17 12:55 - Labs Result Diagrams: 08/14/17 11:55 08/14/17 11:55 Labs: Laboratory Results - last 24 hr 08/14/17 08/14/17 08/14/17 11:55 11:55 11:55 WBC 2.8 L RBC 3.60 L Hgb 11.5 L Hct 33.4 L MCV 92.9 MCH 31.9 H MCHC 34.3 RDW 14.9 H Plt Count 182 MPV 6.8 L Neut % (Auto) 41.1 L Lymph % (Auto) 47.7 H [place] % (Auto) 8.8 Eos % (Auto) 1.6 Baso % (Auto) 0.8 Neut # (Auto) 1.1 L Lymph # (Auto) 1.3 [place] # (Auto) 0.2 Eos # (Auto) 0.0 Baso # (Auto) 0.0 PT 13.6 H INR 1.2 APTT 36 H Sodium 138 Potassium 4.9 Chloride 98 Carbon Dioxide 30 Anion Gap 14 BUN 7 L Creatinine 0.5 L Est GFR ( Amer) > 60 Est GFR (Non-Af Amer) > 60 Random Glucose 71 L Calcium 9.3 Total Bilirubin 0.6 AST 18 ALT 19 L D Alkaline Phosphatase 53 Total Protein 6.1 L Albumin 3.5 Globulin 2.6 Albumin/Globulin Ratio 1.3 Assessment & Plan - Assessment and Plan (Free Text) Assessment: Mr. Mcginnis is a 67 year old Male with PMHx Gastric Cancer with lymph node involvement s/p total gastrectomy and espohagojejunostomy with neoadjuvant therapy and lymph node resection and refusing chemotherapy admitted due to failure to thrive. Plan: Failure to Thrive Hx Gastric Cancer with lymph node involvement s/p total gastrectomy and espohagojejunostomy with neoadjuvant therapy and lymph node resection, refusing chemotherapy PICC Line to be inserted for PPN - consent in chart Case management referral to arrange for PPN at home Started Megace daily, supplements DW Krysten Huerta DO, PGY-1 <Miranda Garcia - Last Filed: 08/16/17 15:09> Results - Vital Signs Recent Vital Signs: Last Vital Signs Temp 98.1 F 08/16/17 07:57 Pulse 88 08/16/17 07:57 Resp 20 08/16/17 07:57 BP 112/73 08/16/17 07:57 Pulse Ox 98 08/16/17 07:57 - Labs Result Diagrams: 08/14/17 11:55 08/14/17 11:55 Attending/Attestation - Attestation I have personally seen and examined this patient.: Yes I have fully participated in the care of the patient.: Yes I have reviewed all pertinent clinical information: Yes Notes (Text): 08/16/17 15:05 Patient is a 67-year-old male with advanced a gastric carcinoma, extensive surgical resection of the stomach, and a proximal small bowels. Patient last more than 150 pounds in the last one 9 months duration. You and the patient is having nutritional supplementation, patient protein energy intake is significantly less. Patient is not a candidate for jejunostomy, or PEG tube, because of the severe changes in the anatomy following the extensive surgical resection. Patient is also does not want any procedure her surgical intervention anymore. Patient has a significant weight loss, and a loss of muscle mass, and associate it with emaciation, and a high risk for infections. Patient has the diagnosis of protein energy malnourishment, associated with severe weight loss. Patient's intake is extremely low, secondary to loss of appetite, and also loss of anatomy of the small bowel is. In may opinion patient will benefit, with the total parenteral alimentation. Patient's albumin level on the low side, around 3.0.
[2017-08-14 17:03] VITALS: RESP 20
--- NOTE | 2017-08-14 17:38 | RAD ---
HISTORY: Verify right PICC COMPARISON: Comparison chest dated 01/30/2017 . FINDINGS: Interval placement right-sided PICC line with tip in the SVC. LUNGS: No active pulmonary disease. PLEURA: No significant pleural effusion identified, no pneumothorax apparent. CARDIOVASCULAR: Normal. OSSEOUS STRUCTURES: Mild multilevel degenerative spondylosis of the thoracic spine. VISUALIZED UPPER ABDOMEN: Normal. OTHER FINDINGS: None. IMPRESSION: Interval placement right-sided PICC line with tip in the SVC.
[2017-08-15] MEDS: Megestrol Acetate 40 mg/ml Cup PO SCH (09:29)
[2017-08-15] MEDS: Enoxaparin 40 mg Syringe SC SCH (09:29)
--- NOTE | 2017-08-15 11:29 | CP.PCM.PN ---
Subjective - Date & Time of Evaluation Date of Evaluation: 08/15/17 Time of Evaluation: 09:00 - Subjective Subjective: Patient was seen and examine at beside. Patient reports he is feeling okay, tolerating supplements. PICC line inserted in Right Arm. 12 point ROS unremarkable. Objective - Vital Signs/Intake and Output Vital Signs (last 24 hours): Temp Pulse Resp BP Pulse Ox 97.7 F 105 H 20 103/64 98 08/15/17 07:46 08/15/17 07:46 08/15/17 07:46 08/15/17 07:46 08/15/17 07:46 Intake and Output: 08/15/17 08/15/17 06:59 18:59 Intake Total 320 Balance 320 - Medications Medications: Current Medications Enoxaparin Sodium (Lovenox) 40 mg SC DAILY [facility] Last Admin: 08/15/17 09:29 Dose: 40 mg Escitalopram Oxalate (Lexapro) 5 mg PO DAILY [facility] Last Admin: 08/15/17 09:29 Dose: 5 mg Multivitamins/Vitamin C 10 ml/ (Amino Acids) 1,010 mls @ 42 mls/hr IV .Q24H [facility] Stop: 08/16/17 17:59 Megestrol Acetate (Megace) 400 mg PO DAILY [facility] Last Admin: 08/15/17 09:29 Dose: 400 mg - Labs Labs: 08/14/17 11:55 08/14/17 11:55 PT 13.6 SECONDS (9.7-12.2) H 08/14/17 11:55 INR 1.2 08/14/17 11:55 APTT 36 SECONDS (21-34) H 08/14/17 11:55 - Constitutional Appears: No Acute Distress, Cachectic, Chronically Ill - Head Exam Head Exam: NORMAL INSPECTION, NORMOCEPHALIC - Eye Exam Eye Exam: EOMI, Normal appearance, PERRL Pupil Exam: NORMAL ACCOMODATION - ENT Exam ENT Exam: Mucous Membranes Moist - Neck Exam Neck Exam: Normal Inspection - Respiratory Exam Respiratory Exam: Clear to Ausculation Bilateral, NORMAL BREATHING PATTERN - Cardiovascular Exam Cardiovascular Exam: REGULAR RHYTHM - GI/Abdominal Exam GI & Abdominal Exam: Soft, Normal Bowel Sounds. absent: Distended, Tenderness Additional comments: pronounced xiphoid process - Rectal Exam Rectal Exam: Deferred - Neurological Exam Neurological Exam: Alert, Awake, Oriented x3 - Psychiatric Exam Psychiatric exam: Normal Affect, Normal Mood - Skin Skin Exam: Dry, Intact, Normal Color, Warm Assessment and Plan - Assessment and Plan (Free Text) Assessment: Mr. Mcginnis is a 67 year old Male with PMHx Gastric Cancer with lymph node involvement s/p total gastrectomy and espohagojejunostomy with neoadjuvant therapy and lymph node resection and refusing chemotherapy admitted due to failure to thrive. Plan: Failure to Thrive Hx Gastric Cancer with lymph node involvement s/p total gastrectomy and espohagojejunostomy with neoadjuvant therapy and lymph node resection, refusing chemotherapy PICC Line inserted 08/14/16 RIGHT arm for PPN Case management referral to arrange for PPN at home - Spoke to [employer] Yulia, pending approval Started Megace daily, supplements DW Dr. Garcia, Krysten Leach DO, PGY-1
[2017-08-15] MEDS ORDERED: PPN IV SCH (18:00)
--- NOTE | 2017-08-16 10:03 | CP.PCM.DIS ---
<Krysten Leach - Last Filed: 08/16/17 10:00> Provider - Provider Date of Admission: 08/14/17 11:46 Attending physician: Miranda Garcia MD Time Spent in preparation of Discharge (in minutes): 55 Hospital Course - Lab Results Lab Results: Most Recent Lab Values WBC 2.8 K/uL (4.8-10.8) L 08/14/17 11:55 RBC 3.60 Mil/uL (4.40-5.90) L 08/14/17 11:55 Hgb 11.5 g/dL (12.0-18.0) L 08/14/17 11:55 Hct 33.4 % (35.0-51.0) L 08/14/17 11:55 MCV 92.9 fL (80.0-94.0) 08/14/17 11:55 MCH 31.9 pg (27.0-31.0) H 08/14/17 11:55 MCHC 34.3 g/dL (33.0-37.0) 08/14/17 11:55 RDW 14.9 % (11.5-14.5) H 08/14/17 11:55 Plt Count 182 K/uL (130-400) 08/14/17 11:55 MPV 6.8 fL (7.2-11.7) L 08/14/17 11:55 Neut % (Auto) 41.1 % (50.0-75.0) L 08/14/17 11:55 Lymph % (Auto) 47.7 % (20.0-40.0) H 08/14/17 11:55 [place] % (Auto) 8.8 % (0.0-10.0) 08/14/17 11:55 Eos % (Auto) 1.6 % (0.0-4.0) 08/14/17 11:55 Baso % (Auto) 0.8 % (0.0-2.0) 08/14/17 11:55 Neut # (Auto) 1.1 K/uL (1.8-7.0) L 08/14/17 11:55 Lymph # (Auto) 1.3 K/uL (1.0-4.3) 08/14/17 11:55 [place] # (Auto) 0.2 K/uL (0.0-0.8) 08/14/17 11:55 Eos # (Auto) 0.0 K/uL (0.0-0.7) 08/14/17 11:55 Baso # (Auto) 0.0 K/uL (0.0-0.2) 08/14/17 11:55 PT 13.6 SECONDS (9.7-12.2) H 08/14/17 11:55 INR 1.2 08/14/17 11:55 APTT 36 SECONDS (21-34) H 08/14/17 11:55 Sodium 138 mmol/L (132-148) 08/14/17 11:55 Potassium 4.9 mmol/L (3.6-5.2) 08/14/17 11:55 Chloride 98 mmol/L (98-107) 08/14/17 11:55 Carbon Dioxide 30 mmol/L (22-30) 08/14/17 11:55 Anion Gap 14 (10-20) 08/14/17 11:55 BUN 7 mg/dL (9-20) L 08/14/17 11:55 Creatinine 0.5 mg/dL (0.8-1.5) L 08/14/17 11:55 Est GFR ( Amer) > 60 08/14/17 11:55 Est GFR (Non-Af Amer) > 60 08/14/17 11:55 Random Glucose 71 mg/dL (75-110) L 08/14/17 11:55 Calcium 9.3 mg/dl (8.6-10.4) 08/14/17 11:55 Total Bilirubin 0.6 mg/dL (0.2-1.3) 08/14/17 11:55 AST 18 U/L (17-59) 08/14/17 11:55 ALT 19 U/L (21-72) L D 08/14/17 11:55 Alkaline Phosphatase 53 U/L (38-126) 08/14/17 11:55 Total Protein 6.1 g/dL (6.3-8.3) L 08/14/17 11:55 Albumin 3.5 g/dL (3.5-5.0) 08/14/17 11:55 Globulin 2.6 gm/dL (2.2-3.9) 08/14/17 11:55 Albumin/Globulin Ratio 1.3 (1.0-2.1) 08/14/17 11:55 Prealbumin 9.2 mg/dL (17.6-36.0) L 08/15/17 07:37 - Hospital Course Hospital Course: Upon Admission: Mr. Mcginnis is a 67 year old Male with PMHx Gastric Cancer with lymph node involvement s/p total gastrectomy and espohagojejunostomy with neoadjuvant therapy and lymph node resection and refusing chemotherapy admitted due to failure to thrive. Patient reports he continues to lose weight despite having an appetite and eating. He tolerates his diet, at times feeling nauseous, denied any vomiting. 12 point ROS unremarkable unless otherwise noted. PMHx: PMHx Gastric Cancer with lymph node involvement s/p total gastrectomy and espohagojejunostomy with neoadjuvant therapy and lymph node resection and refusing chemotherapy, HTN, OA, Asthma PSHx: Noted above All: NKDA SHx: Denied any tobacco, ETOH, or illicit drug use FHx: Unremarkable Throughout Hospital Course: Failure to Thrive Hx Gastric Cancer with lymph node involvement s/p total gastrectomy and espohagojejunostomy with neoadjuvant therapy and lymph node resection, refusing chemotherapy PICC Line inserted 08/14/16 RIGHT arm for TPN Case management referral to arrange for TPN at home - Spoke to [employer] Yulia, arrangements are being made. Started Megace daily, supplements Discharge Exam - Additional Findings Additional findings: - Constitutional Appears: No Acute Distress, Cachectic, Chronically Ill - Head Exam Head Exam: NORMAL INSPECTION, NORMOCEPHALIC - Eye Exam Eye Exam: EOMI, Normal appearance, PERRL Pupil Exam: NORMAL ACCOMODATION - ENT Exam ENT Exam: Mucous Membranes Moist - Neck Exam Neck Exam: Normal Inspection - Respiratory Exam Respiratory Exam: Clear to Ausculation Bilateral, NORMAL BREATHING PATTERN - Cardiovascular Exam Cardiovascular Exam: REGULAR RHYTHM - GI/Abdominal Exam GI & Abdominal Exam: Soft, Normal Bowel Sounds. absent: Distended, Tenderness Additional comments: pronounced xiphoid process - Rectal Exam Rectal Exam: Deferred - Neurological Exam Neurological Exam: Alert, Awake, Oriented x3 - Psychiatric Exam Psychiatric exam: Normal Affect, Normal Mood - Skin Skin Exam: Dry, Intact, Normal Color, Warm Discharge Plan - Discharge Medications Prescriptions: Escitalopram [Lexapro] 1 tab PO DAILY #30 tab Megestrol Acetate [Megace] 400 mg PO DAILY #30 cup - Follow Up Plan Condition: FAIR Disposition: HOME/ ROUTINE Instructions: Escitalopram, Megestrol, Failure to Thrive in an Older Adult (DC) Referrals: Miranda Garcia MD [Staff Provider] - <Miranda Garcia - Last Filed: 08/16/17 15:10> Provider - Provider Date of Admission: 08/14/17 11:46 Attending physician: Miranda Garcia MD Hospital Course - Lab Results Lab Results: Most Recent Lab Values WBC 2.8 K/uL (4.8-10.8) L 08/14/17 11:55 RBC 3.60 Mil/uL (4.40-5.90) L 08/14/17 11:55 Hgb 11.5 g/dL (12.0-18.0) L 08/14/17 11:55 Hct 33.4 % (35.0-51.0) L 08/14/17 11:55 MCV 92.9 fL (80.0-94.0) 08/14/17 11:55 MCH 31.9 pg (27.0-31.0) H 08/14/17 11:55 MCHC 34.3 g/dL (33.0-37.0) 08/14/17 11:55 RDW 14.9 % (11.5-14.5) H 08/14/17 11:55 Plt Count 182 K/uL (130-400) 08/14/17 11:55 MPV 6.8 fL (7.2-11.7) L 08/14/17 11:55 Neut % (Auto) 41.1 % (50.0-75.0) L 08/14/17 11:55 Lymph % (Auto) 47.7 % (20.0-40.0) H 08/14/17 11:55 [place] % (Auto) 8.8 % (0.0-10.0) 08/14/17 11:55 Eos % (Auto) 1.6 % (0.0-4.0) 08/14/17 11:55 Baso % (Auto) 0.8 % (0.0-2.0) 08/14/17 11:55 Neut # (Auto) 1.1 K/uL (1.8-7.0) L 08/14/17 11:55 Lymph # (Auto) 1.3 K/uL (1.0-4.3) 08/14/17 11:55 [place] # (Auto) 0.2 K/uL (0.0-0.8) 08/14/17 11:55 Eos # (Auto) 0.0 K/uL (0.0-0.7) 08/14/17 11:55 Baso # (Auto) 0.0 K/uL (0.0-0.2) 08/14/17 11:55 PT 13.6 SECONDS (9.7-12.2) H 08/14/17 11:55 INR 1.2 08/14/17 11:55 APTT 36 SECONDS (21-34) H 08/14/17 11:55 Sodium 138 mmol/L (132-148) 08/14/17 11:55 Potassium 4.9 mmol/L (3.6-5.2) 08/14/17 11:55 Chloride 98 mmol/L (98-107) 08/14/17 11:55 Carbon Dioxide 30 mmol/L (22-30) 08/14/17 11:55 Anion Gap 14 (10-20) 08/14/17 11:55 BUN 7 mg/dL (9-20) L 08/14/17 11:55 Creatinine 0.5 mg/dL (0.8-1.5) L 08/14/17 11:55 Est GFR ( Amer) > 60 08/14/17 11:55 Est GFR (Non-Af Amer) > 60 08/14/17 11:55 Random Glucose 71 mg/dL (75-110) L 08/14/17 11:55 Calcium 9.3 mg/dl (8.6-10.4) 08/14/17 11:55 Total Bilirubin 0.6 mg/dL (0.2-1.3) 08/14/17 11:55 AST 18 U/L (17-59) 08/14/17 11:55 ALT 19 U/L (21-72) L D 08/14/17 11:55 Alkaline Phosphatase 53 U/L (38-126) 08/14/17 11:55 Total Protein 6.1 g/dL (6.3-8.3) L 08/14/17 11:55 Albumin 3.5 g/dL (3.5-5.0) 08/14/17 11:55 Globulin 2.6 gm/dL (2.2-3.9) 08/14/17 11:55 Albumin/Globulin Ratio 1.3 (1.0-2.1) 08/14/17 11:55 Prealbumin 9.2 mg/dL (17.6-36.0) L 08/15/17 07:37 Attending/Attestation - Attestation I have personally seen and examined this patient.: Yes I have fully participated in the care of the patient.: Yes I have reviewed all pertinent clinical information, including history, physical exam and plan: Yes Notes (Text): 08/16/17 15:09 Patient is a 67-year-old male with advanced a gastric carcinoma, extensive surgical resection of the stomach, and a proximal small bowels. Patient last more than 150 pounds in the last one 9 months duration. You and the patient is having nutritional supplementation, patient protein energy intake is significantly less. Patient is not a candidate for jejunostomy, or PEG tube, because of the severe changes in the anatomy following the extensive surgical resection. Patient is also does not want any procedure her surgical intervention anymore. Patient has a significant weight loss, and a loss of muscle mass, and associate it with emaciation, and a high risk for infections. Patient has the diagnosis of protein energy malnourishment, associated with severe weight loss. Patient's intake is extremely low, secondary to loss of appetite, and also loss of anatomy of the small bowel is. In may opinion patient will benefit, with the total parenteral alimentation.
[2017-08-16] MEDS: Megestrol Acetate 40 mg/ml Cup PO SCH (10:28)
[2017-08-16] MEDS: Enoxaparin 40 mg Syringe SC SCH (10:29)
[2017-08-16] MEDS ORDERED: PPN IV SCH (18:00)
[2017-08-17] MEDS: Megestrol Acetate 40 mg/ml Cup PO SCH (09:29)
[2017-08-17] MEDS: Enoxaparin 40 mg Syringe SC SCH (09:30)
[2017-08-17 16:36] VITALS: BP 109/68; PULSE 83; TEMP 97.8; O2SAT 99
[2017-08-17] MEDS ORDERED: PPN IV SCH (18:00)
== END 2017-08-17 18:01 | disposition home or self-care (01) ==
LOC: C.ER 10:27 → C.9E 11:46 → C.3T 12:27
PROVIDERS: ADMIT Internal Medicine; ATTEND Internal Medicine
DX: C16.9 Malignant neoplasm of stomach, unspecified (principal); E46 Unspecified protein-calorie malnutrition; I10 Essential (primary) hypertension; J45.909 Unspecified asthma, uncomplicated; R62.7 Adult failure to thrive; R64 Cachexia; Z90.3 Acquired absence of stomach [part of]; Z68.1 Body mass index [BMI] 19.9 or less, adult
CPT/HCPCS: 36415; 36569; 36592; 71045; 80053; 84134; 85025; 85610; 85730; 97110; 97116; 97162; 97530; 99283; G0378; G8978; G8979; J1650

== ENCOUNTER 2017-10-31 07:45 | Day surgery (SDC) | payer MEDICARE, OTHER ==
--- NOTE | 2017-10-31 09:06 | CP.SDSHP ---
Same Day Surgery H & P - History Proposed Procedure: egd Pre-Op Diagnosis: dysphagia. weight loss. S/P Gastrectomy for gastric cancer - Previous Medical/Surgical History Cardiac: Hypertension Pulmonary: Asthma Misc: Other (Gastric Cancer S/P resection with +LN's, H pylori gastritis) Previous Surgical History: Gastrectomy - Allergies Allergies: Allergies No Known Allergies Allergy (Verified 10/31/17 08:33) - Physical Exam General Appearance: Frail and cachectic Vital Signs: Vital Signs 10/31/17 08:42 Temperature 97.8 F Pulse Rate 67 Respiratory 19 Rate Blood Pressure 106/50 L O2 Sat by Pulse 100 Oximetry Mental Status: Alert & Oriented x3 Neuro: WNL Heart: WNL Lungs: WNL GI: Other (Large midline abdominal scar, well healed) - Impression Impression: dysphagia. weight loss. S/P gastrectomy for gastric cancer Pt. Evaluated Today:Candidate for Anesthesia & Procedure: Yes - Date & Time Date: 10/31/17 Time: 09:06 Short Stay Discharge - Short Stay Discharge Admitting Diagnosis/Reason for Visit: WEIGHT LOSS / DYSPHAGIA Disposition: HOME/ ROUTINE Referrals: Miranda Garcia MD [Primary Care Provider] -
[2017-10-31] MEDS ORDERED: Lactated Ringer's 1,000 ML IV ONE (09:14)
[2017-10-31] MEDS ORDERED: Propofol 10 mg/ml Inj (20 ML) ONE (09:16)
[2017-10-31 10:31] VITALS: O2SAT 100
[2017-10-31 10:40] VITALS: BP 108/52; PULSE 66; RESP 20; TEMP 97.2
== END 2017-10-31 10:50 | disposition home or self-care (01) ==
LOC: C.ENDO 07:45
PROVIDERS: ATTEND Internal Medicine Gastroenterology
DX: K21.0 Gastro-esophageal reflux disease with esophagitis (principal); R13.10 Dysphagia, unspecified; R63.4 Abnormal weight loss; Z85.028 Personal history of other malignant neoplasm of stomach; J45.909 Unspecified asthma, uncomplicated; I10 Essential (primary) hypertension; Z90.3 Acquired absence of stomach [part of]
CPT/HCPCS: 43239; 88305; J2001; J2704; J7040; J7120

== ENCOUNTER 2018-01-17 08:08 | Day surgery (SDC) | payer MEDICARE, OTHER ==
--- NOTE | 2018-01-17 10:15 | CP.SDSHP ---
Same Day Surgery H & P - History Proposed Procedure: PICC exchange Pre-Op Diagnosis: dysphagia - Allergies Allergies: Allergies No Known Allergies Allergy (Verified 10/31/17 08:33) - Physical Exam Mental Status: Alert & Oriented x3 - Impression Impression: Pt with picc for TPN. Plan PICC exchange. Pt. Evaluated Today:Candidate for Anesthesia & Procedure: No Short Stay Discharge - Short Stay Discharge Admitting Diagnosis/Reason for Visit: DYSPHAGIA/POST GASTRIC SURGERY Disposition: HOME/ ROUTINE
--- NOTE | 2018-01-17 10:16 | PCM.SURG1 ---
Surgeon's Initial Post Op Note - Surgeon's Notes Surgeon: Adolph Valderrama MD [employer] Machine Tender: NONE Type of Anesthesia: Local, None Pre-Operative Diagnosis: Dysphagia Operative Findings: Dual lumen picc in place Post-Operative Diagnosis: Dysphagia Operation Performed: Exhange of picc. New dual lumen picc placed, 5 fr 37 cm. Tip is in the SVC. Specimen/Specimens Removed: NONE Estimated Blood Loss: EBL {In ML}: 0 Blood Products Given: N/A Drains Used: No Drains Post-Op Condition: Fair Date of Surgery/Procedure: 01/17/18 Time of Surgery/Procedure: 10:00
--- NOTE | 2018-01-17 13:38 | RAD ---
PROCEDURE: Date of procedure: 01/17/2018 Procedure: 1. Exchange of a right arm PICC with fluoroscopic guidance, 2. PICC tip confirmation with spot radiograph and is in the superior vena cava Medications: None Total Fluoro time: 9.2 seconds Radiation: 0.86 MGy EBL: 2 cc HISTORY: Dysphagia requiring PICC for TPN, nonfunctional PICC TECHNIQUE: Following informed consent and procedure time-out, the patient was placed supine on the interventional table and the right arm and existing dual-lumen PICC were prepped and draped in the usual sterile fashion. The existing PICC line was multiple guidewire and exchanged for a new dual-lumen PICC was trimmed to 37 centimeters meters. The PICC was position with tip of PICC confirm a spot radiograph the superior vena cava. The PICC was secured to the patient's skin. The PICC was flushed. A biopatch and sterile dressing was applied. IMPRESSION: Exchange of existing dual-lumen PICC for a new 5 Portuguese dual-lumen PICC trimmed to 37 centimeters. The PICC is positioned with tip confirmed with spot radiograph in the superior vena cava.
== END 2018-01-17 10:54 | disposition home or self-care (01) ==
LOC: C.SPRAD 08:08
PROVIDERS: ATTEND Radiology Vascular & Interventional Radiology
DX: R13.10 Dysphagia, unspecified (principal)

== ENCOUNTER 2018-02-01 18:11 | Inpatient (IN) | payer MEDICARE, OTHER ==
[2018-02-01 18:11] VITALS: BMI 17.9
--- NOTE | 2018-02-01 18:55 | C.PDOC ---
History Of Present Illness 67 year old male, whose PMHx includes asthma, gastric cancer and gastrectomy, presents to the ED for evaluation of sudden onset of severe abdominal pain which began at around 1400 today. Patient reports symptoms are associated with one episode of vomiting (non-bloody/non-bilious) and one episode of diarrhea ( non-bloody) prior to arrival. Patient reports his pain is severe, non-radiating and localized to his midline upper abdominal area. Patient also reports decreased appetite. Patient states he does not eat; he receives parenteral nutrition via PICC line. Patient reports eye surgery in past. He denies history of smoking or drinking. Patient denies significant family history. Patient denies urinary symptoms. PMD: Dr. Garcia Time Seen by Provider: 02/01/18 18:39 Chief Complaint (Nursing): Abdominal Pain History Per: Patient History/Exam Limitations: no limitations Onset/Duration Of Symptoms: Hrs Current Symptoms Are (Timing): Still Present Severity: Severe Location Of Pain/Discomfort: Other (midline upper abdomen ) Quality Of Discomfort: "Pain" Associated Symptoms: Vomiting, Diarrhea. denies: Urinary Symptoms Additional History Per: Patient Past Medical History Reviewed: Historical Data, Nursing Documentation, Vital Signs Vital Signs: Last Vital Signs Temp 98.6 F 02/05/18 08:00 Pulse 109 H 02/05/18 08:00 Resp 17 02/05/18 08:00 BP 129/63 02/05/18 08:00 Pulse Ox 98 02/05/18 08:00 - Medical History PMH: Anemia (IRON DEFICIENCY), Arthritis (NECK; LOW BACK), Asthma, Depression ( NOT TAKING MED. ANYMORE; CLAIMS FEELS BETTER) Denies: Colonic Polyps, Fractures, Chronic Kidney Disease, Seizures, Sleep Apnea Surgical History: Endoscopy Denies: Pacemaker - [facility] Procedures COLONOSCOPY (06/24/14) CORONAR ARTERIOGR-2 CATH (07/31/05) EXCISION OF SMALL INTESTINE, ENDO, DIAGN (01/30/17) INSPECTION OF LARYNX, ENDO (01/30/17) INTRODUCTION OF NUTRITIONAL INTO PERIPH VEIN, PERC APPROACH (05/02/17) LEFT HEART CARDIAC CATH (07/31/05) LT HEART ANGIOCARDIOGRAM (07/31/05) REMOVAL OF VAD FROM TRUNK SUBCU/FASCIA, OPEN APPROACH (01/30/17) Family History: States: Unknown Family Hx - Social History Hx Tobacco Use: No Hx Alcohol Use: No Hx Substance Use: No - Immunization History Hx Tetanus Toxoid Vaccination: No Hx Influenza Vaccination: Yes Hx Pneumococcal Vaccination: No Review Of Systems Constitutional: Positive for: Sweats Gastrointestinal: Positive for: Vomiting, Abdominal Pain, Diarrhea Skin: Positive for: Other (pale ) Neurological: Positive for: Dizziness Physical Exam - Physical Exam Appears: Non-toxic, Other (in acute painful distress ) Skin: Warm, Diaphoretic, Pale Head: Normacephalic, Tenderness Eye(s): bilateral: PERRL, EOMI Oral Mucosa: Dry Lips: Normal Appearing Throat: No Erythema, No Exudate Neck: Normal ROM, Trachea Midline Lymphatic: No Adenopathy Chest: Symmetrical, No Tenderness Cardiovascular: Rhythm Regular, No Murmur, Other (tachycardic ) Respiratory: Normal Breath Sounds, No Wheezing Gastrointestinal/Abdominal: Soft, Tenderness (diffuse ), Guarding (upper abdomen ) Back: Normal Inspection, No CVA Tenderness Extremity: Other (right upper extremity with PICC line in place. no erythema ) Neurological/Psych: Oriented x3, Normal Sensation, Normal Reflexes ED Course And Treatment - Laboratory Results Result Diagrams: 02/05/18 06:07 02/05/18 06:07 O2 Sat by Pulse Oximetry: 100 (on RA) Pulse Ox Interpretation: Normal Medical Decision Making Medical Decision Making: Impression: abdominal pain Differential diagnoses include but are not limited to: * mesenteric ischemia * bowel obstruction * AAA * sepsis Plan: * bloodwork * urinalysis * CT A/P * EKG * Morphine IVP * Zofran IV * IV Fluids * reassess and disposition Progress: Bloodwork, urinalysis, CT A/P, and EKG ordered and reviewed. Morphine IVP, Zofran IV, and IV Fluids given. CRYSTAL Spencer Surgery resident (for Dr Allred). Pt's clinical presentation concerning for acute abdomen. CT concerning for cholelithiasis. US ordered. Pt required multiple doses IV morphine for pain control. US c/w cholecystitis CRYSTAL Garcia IV antibiotics ordered. Disposition Counseled Patient/Family Regarding: Studies Performed, Diagnosis - Disposition Disposition: HOSPITALIZED Disposition Time: 23:00 Condition: GOOD - POA Present On Arrival: None - Clinical Impression Clinical Impression: Acute cholecystitis - Scribe Statement The provider has reviewed the documentation as recorded by the Scribe (Deisi Braun) Provider Attestation: All medical record entries made by the Scribe were at my direction and personally dictated by me. I have reviewed the chart and agree that the record accurately reflects my personal performance of the history, physical exam, medical decision making, and the department course for this patient. I have also personally directed, reviewed, and agree with the discharge instructions and disposition.
[2018-02-01] MEDS ORDERED: Sodium Chloride 0.9% 1,000 ML IV ONE (19:00)
[2018-02-01] MEDS ORDERED: Morphine 4 MG/ML VIAL ONE (19:12)
[2018-02-01 19:23] LABS: BASO % 0.3 % (0.0-2.0); EOS # 0.1 K/uL (0.0-0.7); HEMOGLOBIN 11.1 g/dL (12.0-18.0); LYMPH % 15.3 % (20.0-40.0); MEAN CELL VOLUME 105.4 fL (80.0-94.0); MEAN CORPUSCULAR HEMOGLOBIN 33.8 pg (27.0-31.0); MEAN CORPUSCULAR HGB CONC 32.1 g/dL (33.0-37.0); MEAN PLATELET VOLUME 7.8 fL (7.2-11.7); MONO # 0.5 K/uL (0.0-0.8); MONO % 7.9 % (0.0-10.0); NEUT # 4.8 K/uL (1.8-7.0); NEUT % 75.5 % (50.0-75.0); RBC 3.29 Mil/uL (4.40-5.90); RED CELL DISTRIBUTION WIDTH 13.8 % (11.5-14.5); WHITE BLOOD COUNT 6.4 K/uL (4.8-10.8)
[2018-02-01 19:36] LABS: INR 1.6; PROTHROMBIN TIME 17.2 SECONDS (9.7-12.2)
[2018-02-01 19:40] LABS: VENOUS BLOOD GAS BASE EXCESS 3.7 mmol/L (0.0-2.0); VENOUS BLOOD GAS PCO2 32 mmHg (40-60); VENOUS BLOOD GAS PO2 33 mm/Hg (30-55); VENOUS BLOOD PH 7.52 (7.32-7.43)
[2018-02-01 20:06] LABS: ALB/GLOB RATIO 1.3 (1.0-2.1); ALBUMIN 3.4 g/dL (3.5-5.0); ALT/SGPT 60 U/L (21-72); AST/SGOT 99 U/L (17-59); BLOOD UREA NITROGEN 20 mg/dL (9-20); GFR NON-AFRICAN AMERICAN > 60; LIPASE 336 U/L (23-300)
[2018-02-01] MEDS ORDERED: Iodixanol 320 MG/ML 100 ML BOTTLE IV ONE (20:37)
--- NOTE | 2018-02-01 20:56 | CP.PCM.CON ---
History of Present Illness - History of Present Illness History of Present Illness: General surgery consult note for Dr. Peña Spencer, PGY-2 Pt S & E at bedside at 2014 67M w/PMH sig for gastric CA s/p gastrectomy (2016) consulted for epigastric abdominal pain x 1 day. Pt reports sudden onset of severe epigastric abdominal pain, radiates diffusely. No inciting factors identified. Alleviated by 10mg Morphine in ED. Aggravated by touch. Admits to one episode of diarrhea today (last normal BM was one day prior to evaluation), nausea, multiple episodes of bilious non bloody emesis at home, having flatus, poor appetite, dizziness, headache, chest pain with emesis, SOB, chills. Pt is on peripheral nutrition via PICC line. Denies constipation, hematochezia, hematemesis, fevers, other complaints. In ED- Afebrile, no leukocytosis. Lipase 336. Electrolytes WNL. Ab U/S with cholelithiasis, gallbladder sludge, wall 1.9mm - mildly prominent, pericholecystic fluid. CBD 9mm. CT ab w/GB distention, some GB wall thickening, no calcified stones. Afebrile, no leukocytosis. T bili 0.5. Lipase 336. PMH: gastric CA, arthritis, asthma PSH: Gastrectomy, eye surgery All: NKDA SH: Denies tobacco, ETOH or illicit drug use Oncologist- At [place] Review of Systems - Review of Systems All systems: reviewed and no additional remarkable complaints except - Constitutional Constitutional: Chills, Headache. absent: Fever - EENT Ears: Dizziness Nose/Mouth/Throat: absent: Sore Throat - Cardiovascular Cardiovascular: Chest Pain (with vomiting) - Gastrointestinal Gastrointestinal: Abdominal Pain, Diarrhea, Nausea, Vomiting. absent: Constipation - Integumentary Integumentary: absent: Skin Pain - Neurological Neurological: Dizziness, Weakness Past Patient History - Infectious Disease Hx of Infectious Diseases: None - Past Medical History & Family History Past Medical History?: Yes - Past Social History Smoking Status: Never Smoked - CARDIAC Hx Pacemaker: No - PULMONARY Hx Asthma: Yes Hx Sleep Apnea: No - NEUROLOGICAL Hx Seizures: No - HEENT Hx HEENT Problems: Yes Hx Cataracts: Yes (RIGHT EYE, RECENTLY REMOVED, 04/05/16) - RENAL Hx Chronic Kidney Disease: No - ENDOCRINE/METABOLIC Hx Endocrine Disorders: No - HEMATOLOGICAL/ONCOLOGICAL Hx Anemia: Yes (IRON DEFICIENCY) - INTEGUMENTARY Hx Dermatological Problems: No - MUSCULOSKELETAL/RHEUMATOLOGICAL Hx Arthritis: Yes (NECK; LOW BACK) Hx Fractures: No - GASTROINTESTINAL Hx Gastrointestinal Disorders: Yes Hx Fatty Liver Disease: Yes Hx Gastroesophageal Reflux: Yes Hx Hemorrhoids: Yes (WITH BLEEDING) Other/Comment: FATTY LIVER, COLONOSCOPY 07/06; stomach Ca - GENITOURINARY/GYNECOLOGICAL Hx Genitourinary Disorders: No - PSYCHIATRIC Hx Depression: Yes (NOT TAKING MED. ANYMORE; CLAIMS FEELS BETTER) Hx Substance Use: No - ANESTHESIA Hx Anesthesia: Yes Hx Anesthesia Reactions: No Hx Malignant Hyperthermia: No Meds Allergies/Adverse Reactions: Allergies Allergy/AdvReac Type Severity Reaction Status Date / Time No Known Allergies Allergy Verified 10/31/17 08:33 Physical Exam - Constitutional Appears: Cachectic - Head Exam Head Exam: ATRAUMATIC, NORMAL INSPECTION, NORMOCEPHALIC - Eye Exam Eye Exam: EOMI, Normal appearance - ENT Exam ENT Exam: Mucous Membranes Moist, Normal Exam - Neck Exam Neck exam: Positive for: Full Rom, Normal Inspection - Respiratory Exam Respiratory Exam: NORMAL BREATHING PATTERN - Cardiovascular Exam Cardiovascular Exam: REGULAR RHYTHM - GI/Abdominal Exam GI & Abdominal Exam: Guarding, Soft, Tenderness (diffuse, worse in epigastrum). absent: Distended, Hernia, Rigid Additional comments: well healed midline incision - Extremities Exam Additional comments: RUE with PICC line in place - Neurological Exam Neurological exam: Alert, CN II-XII Intact, Oriented x3 - Psychiatric Exam Psychiatric exam: Normal Affect, Normal Mood - Skin Skin Exam: Diaphoretic, Intact, Normal Color, Warm Results - Vital Signs Recent Vital Signs: Last Vital Signs Temp 97.4 F L 02/01/18 19:54 Pulse 76 02/01/18 19:54 Resp 15 02/01/18 19:54 BP 155/53 H 02/01/18 19:54 Pulse Ox 100 02/01/18 20:23 - Labs Result Diagrams: 02/01/18 19:14 02/01/18 19:45 Labs: Laboratory Results - last 24 hr 02/01/18 02/01/18 02/01/18 19:14 19:14 19:14 WBC 6.4 D RBC 3.29 L Hgb 11.1 L Hct 34.7 L MCV 105.4 H D MCH 33.8 H MCHC 32.1 L RDW 13.8 Plt Count 187 MPV 7.8 Neut % (Auto) 75.5 H Lymph % (Auto) 15.3 L [place] % (Auto) 7.9 Eos % (Auto) 1.0 Baso % (Auto) 0.3 Neut # (Auto) 4.8 Lymph # (Auto) 1.0 [place] # (Auto) 0.5 Eos # (Auto) 0.1 Baso # (Auto) 0.0 PT 17.2 H INR 1.6 APTT 40 H pO2 VBG pH VBG pCO2 VBG HCO3 VBG Total CO2 VBG O2 Sat (Calc) VBG Base Excess VBG Potassium Sodium Chloride Glucose Lactate Potassium Carbon Dioxide Anion Gap BUN Creatinine Est GFR ( Amer) Est GFR (Non-Af Amer) Random Glucose Calcium Total Bilirubin AST ALT Alkaline Phosphatase Lactate Dehydrogenase Troponin I Total Protein Albumin Globulin Albumin/Globulin Ratio Lipase Venous Blood Potassium Blood Type O POSITIVE Antibody Screen Negative 02/01/18 02/01/18 19:35 19:45 WBC RBC Hgb Hct MCV MCH MCHC RDW Plt Count MPV Neut % (Auto) Lymph % (Auto) [place] % (Auto) Eos % (Auto) Baso % (Auto) Neut # (Auto) Lymph # (Auto) [place] # (Auto) Eos # (Auto) Baso # (Auto) PT INR APTT pO2 33 VBG pH 7.52 H VBG pCO2 32 L VBG HCO3 27.1 VBG Total CO2 27.1 VBG O2 Sat (Calc) 72.0 H VBG Base Excess 3.7 H VBG Potassium 3.6 Sodium 137.0 139 Chloride 106.0 103 Glucose 160 H Lactate 1.3 Potassium 3.7 Carbon Dioxide 27 Anion Gap 13 BUN 20 Creatinine 0.5 L Est GFR ( Amer) > 60 Est GFR (Non-Af Amer) > 60 Random Glucose 145 H Calcium 9.0 Total Bilirubin 0.5 AST 99 H D ALT 60 Alkaline Phosphatase 122 Lactate Dehydrogenase 511 Troponin I < 0.0120 Total Protein 6.1 L Albumin 3.4 L Globulin 2.6 Albumin/Globulin Ratio 1.3 Lipase 336 H Venous Blood Potassium 3.6 Blood Type Antibody Screen Assessment & Plan - Assessment and Plan (Free Text) Assessment: 67M w/PMH sig for gastric CA s/p gastrectomy (2017) consulted for epigastric abdominal pain x 1 day Plan: Pain control NPO IVF IV Abx Further recs pending attending evaluation Will DW Dr. Chalino Spencer, PGY-2 - Date & Time Date: 02/01/18 Time: 21:01
[2018-02-01 21:50] LABS: URINE BACTERIA RARE (<OCC); URINE BILIRUBIN NEGATIVE (NEGATIVE); URINE BLOOD NEGATIVE (NEGATIVE); URINE CLARITY Clear (Clear); URINE COLOR Yellow (YELLOW); URINE GLUCOSE (UA) NORMAL (Normal); URINE LEUKOCYTE ESTERASE NEG Leu/uL (Negative); URINE PROTEIN NEGATIVE (NEGATIVE)
[2018-02-01] MEDS ORDERED: Piperacillin/Tazobact 3.375 gm 100 ML IV STA (23:08)
[2018-02-01] MEDS ORDERED: Piperacillin/Tazobact 3.375 gm 100 ML IVPB ONE (23:17)
[2018-02-01] MEDS ORDERED: Sodium Chloride 0.9% 1,000 ML IV SCH (23:30)
[2018-02-02] MEDS ORDERED: Sodium Chloride 0.9% 1,000 ML ONE (00:13)
[2018-02-02] MEDS: Piperacill/Tazo 3.375gm in Dex 3.375 GM/50 ML BAG IVPB SCH ×3 (06:03→21:32)
--- NOTE | 2018-02-02 08:16 | CT ---
Date of service: 02/01/2018 PROCEDURE: CT Abdomen and Pelvis with intravenous contrast HISTORY: Severe abdominal pain COMPARISON: None. TECHNIQUE: Multiple contiguous axial images were performed through the abdomen and pelvis with the use of intravenous contrast. Subsequently, sagittal and coronal reformatted images were obtained. Radiation dose: Total exam DLP = 216 mGy-cm. This CT exam was performed using one or more of the following dose reduction techniques: Automated exposure control, adjustment of the mA and/or kV according to patient size, and/or use of iterative reconstruction technique. FINDINGS: LOWER THORAX: 5 millimeter nodular density within the right middle lobe of the lung on series 3, image 5. Additional 6 millimeter nodular density within the posterior aspect of the right middle lobe. 3-6 month interval followup maybe helpful if clinically indicated. LIVER: Multiple scattered low-attenuation lesions throughout the liver; for example, in the periphery of the right hepatic lobe measuring 1.4 centimeters demonstrating a Hounsfield unit attenuation of 27, indeterminate possibly representing cysts. This may be better evaluated with multiphasic CT or MR if clinically indicated. GALLBLADDER AND BILE DUCTS: Gallbladder is distended. Gallbladder wall thickening. No calcified stones are seen. Mild intrahepatic bile duct prominence. PANCREAS: Unremarkable. No gross lesion or ductal dilatation. SPLEEN: Unremarkable. ADRENALS: Unremarkable. No mass. KIDNEYS AND URETERS: Unremarkable. No hydronephrosis. No solid mass. VASCULATURE: Unremarkable. No aortic aneurysm. BOWEL: Postop changes in the stomach. Underdistended and or mildly thickened descending and sigmoid colon. APPENDIX: Unremarkable. Normal appendix. PERITONEUM: Unremarkable. No free fluid. No free air. LYMPH NODES: Unremarkable. No enlarged lymph nodes. BLADDER: Underdistended and or mildly thick-walled urinary bladder. REPRODUCTIVE: Prominent prostate with associated calcification. BONES: Ankylosis of the lower thoracic and upper lumbar spine. Degenerative changes in the spine. Multilevel prominent posterior disc osteophyte complexes and or bony spurring most prominent at the L1-2 and L2-3 levels. OTHER FINDINGS: None. IMPRESSION: Gallbladder is distended. Some gallbladder wall thickening. No calcified stones are seen. Ultrasound evaluation may be helpful. Underlying acute cholecystitis cannot entirely be excluded. Clinical correlation. 5 millimeter nodular density within the right middle lobe of the lung on series 3, image 5. Additional 6 millimeter nodular density within the posterior aspect of the right middle lobe. 3-6 month interval followup maybe helpful if clinically indicated. Multiple scattered low-attenuation lesions throughout the liver; for example, in the periphery of the right hepatic lobe measuring 1.4 centimeters demonstrating a Hounsfield unit attenuation of 27, indeterminate possibly representing cysts. This may be better evaluated with multiphasic CT or MR if clinically indicated. These findings were preliminarily reported at 9:57 p.m. on 02/01/[address] Josef Alvarado from [facility].
[2018-02-02] MEDS ORDERED: Sodium Chloride 0.9% 500 ML IV ONE (08:40)
[2018-02-02] MEDS: Sodium Chloride 0.9% 1,000 ML IV SCH ×2 (09:02→21:34)
--- NOTE | 2018-02-02 09:17 | CP.PCM.PCO ---
Physician Communication Note - Physician Communication Note Physician Communication Note: OR for lap beny today - keep NPO do not give blood thinners
--- NOTE | 2018-02-02 10:19 | US ---
Date of service: 02/01/2018 HISTORY: upper abdominal pain COMPARISON: None. TECHNIQUE: Sonographic evaluation of the right upper quadrant of the abdomen. FINDINGS: LIVER: Measures 14.1 cm in length. There is diffuse increased echogenicity of the liver parenchyma. There is a 1.3 x 1.3 cm simple cyst in the right hepatic lobe. . No intrahepatic bile duct dilatation. GALLBLADDER: The gallbladder is distended and sludge filled. There are multiple gallstones. There is mild gallbladder wall thickening. No pericholecystic fluid. The sonographic Garcia's sign is negative COMMON BILE DUCT: Measures 9.0 mm. No evidence for choledocholithiasis. Moderate diffuse dilatation. PANCREAS: Unremarkable as visualized. No mass. No ductal dilatation. RIGHT KIDNEY: Measures 12.8 cm in length. Normal echogenicity. No calculus, mass, or hydronephrosis. AORTA: No aneurysmal dilatation. IVC: Unremarkable. OTHER FINDINGS: There is small amount of perihepatic fluid. . IMPRESSION: Distended gallbladder with multiple gallstones, mild gallbladder wall thickening and mild pericholecystic fluid. The sonographic Garcia's sign is negative however this could be related to pain medications. Findings are concerning for acute calculus cholecystitis. Clinical follow-up is advised. Diffuse increased echogenicity in the liver may reflect hepatic steatosis however parenchymal infectious/ inflammatory etiologies cannot be entirely excluded. Clinical and laboratory correlation is advised. .
--- NOTE | 2018-02-02 10:30 | CP.PCM.HP ---
History of Present Illness - History of Present Illness History of Present Illness: Chief complaint: Sudden onset of abdominal pain, with nausea and vomiting started 1 day duration History present illness: 66-year-old male with history of hypertension, osteoarthritis, history of chronic neck pain, bronchial asthma. Patient was diagnosed with the gastric cancer, with a lymph node metastasis. Patient underwent total gastrectomy, and esophagojejunostomy. Lymph node dissection was done. And prior to that patient underwent neoadjuvant therapy, and he received one dose of chemotherapy. After that the patient refused further chemotherapy. Patient underwent total gastrectomy, jejenal jejunostomy, esophagial jejenal anastomosis, and node resection. Surgery done on 10/03/[address] Mark Gtz, at [facility].Patient had a T3 N2 M0 Of stomach cancer. Patient also having very significant malnourishment currently receiving TPN. Patient now came to the emergency room with the sudden onset of abdominal pain started yesterday, associate with nausea and retching and vomiting. Severe tenderness and pain noted in the right upper quadrant region. In the emergency room evaluated CAT scan of the abdomen showing dilated and distended gallbladder. Signs and symptoms suggestive of acute cholecystitis. Also fever and chills present. Past medical history as noted above. History of hypertension osteoarthritis but not on any medications. Gastric carcinoma status post extensive surgery. Malnourishment. Allergy no known drug allergy. Personal history none smoker, nonalcoholic. Review of system noted from the chart. On examination: HEENT PERRLA, neck supple, significant weight loss noted No thyromegaly was noted and no cervical adenopathy noted Chest bilateral good air entry, no wheezing or rales noted CVS regular heart sound, no murmur Abdomen soft and no organomegaly Extremities no pedal edema, no leg swelling, pedal pulses are good. 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 Labs reviewed Elevated WBC. Elevated mild liver enzymes Assessment and recommendation: 66-year-old male with history of hypertension, osteoarthritis, chronic back, neck pain, bronchial asthma, with the gastric cancer, status post surgery. Now having significant dysphagia, Now admitted with a possible acute cholecystitis with a distended gallbladder. Possible acute sepsis. Tachycardia likely related to the sepsis. Surgical evaluation. We will get evaluation by the infectious disease and the vp software if needed. Meanwhile currently patient is on Zosyn. IV fluids. Will follow the patient Present on Admission - Present on Admission Any Indicators Present on Admission: No History of DVT/PE: No History of Uncontrolled Diabetes: No Urinary Catheter: No Decubitus Ulcer Present: No Past Patient History - Infectious Disease Hx of Infectious Diseases: None - Past Medical History & Family History Past Medical History?: Yes - Past Social History Smoking Status: Never Smoked - CARDIAC Hx Pacemaker: No - PULMONARY Hx Asthma: Yes Hx Sleep Apnea: No - NEUROLOGICAL Hx Seizures: No - HEENT Hx HEENT Problems: Yes Hx Cataracts: Yes (RIGHT EYE, RECENTLY REMOVED, 04/05/16) - RENAL Hx Chronic Kidney Disease: No - ENDOCRINE/METABOLIC Hx Endocrine Disorders: No - HEMATOLOGICAL/ONCOLOGICAL Hx Anemia: Yes (IRON DEFICIENCY) - INTEGUMENTARY Hx Dermatological Problems: No - MUSCULOSKELETAL/RHEUMATOLOGICAL Hx Arthritis: Yes (NECK; LOW BACK) Hx Fractures: No - GASTROINTESTINAL Hx Gastrointestinal Disorders: Yes Hx Fatty Liver Disease: Yes Hx Gastroesophageal Reflux: Yes Hx Hemorrhoids: Yes (WITH BLEEDING) Other/Comment: FATTY LIVER, COLONOSCOPY 07/06; stomach Ca - GENITOURINARY/GYNECOLOGICAL Hx Genitourinary Disorders: No - PSYCHIATRIC Hx Depression: Yes (NOT TAKING MED. ANYMORE; CLAIMS FEELS BETTER) Hx Substance Use: No - ANESTHESIA Hx Anesthesia: Yes Hx Anesthesia Reactions: No Hx Malignant Hyperthermia: No Meds Allergies/Adverse Reactions: Allergies Allergy/AdvReac Type Severity Reaction Status Date / Time No Known Allergies Allergy Verified 10/31/17 08:33 Results - Vital Signs Recent Vital Signs: Last Vital Signs Temp 98.3 F 02/02/18 08:43 Pulse 136 H 02/02/18 08:43 Resp 20 02/02/18 08:43 BP 106/68 02/02/18 08:43 Pulse Ox 95 02/02/18 08:43 - Labs Result Diagrams: 02/01/18 19:14 02/01/18 19:45 Labs: Laboratory Results - last 24 hr 02/01/18 02/01/18 02/01/18 19:14 19:14 19:14 WBC 6.4 D RBC 3.29 L Hgb 11.1 L Hct 34.7 L MCV 105.4 H D MCH 33.8 H MCHC 32.1 L RDW 13.8 Plt Count 187 MPV 7.8 Neut % (Auto) 75.5 H Lymph % (Auto) 15.3 L [place] % (Auto) 7.9 Eos % (Auto) 1.0 Baso % (Auto) 0.3 Neut # (Auto) 4.8 Lymph # (Auto) 1.0 [place] # (Auto) 0.5 Eos # (Auto) 0.1 Baso # (Auto) 0.0 PT 17.2 H INR 1.6 APTT 40 H pO2 VBG pH VBG pCO2 VBG HCO3 VBG Total CO2 VBG O2 Sat (Calc) VBG Base Excess VBG Potassium Sodium Chloride Glucose Lactate Potassium Carbon Dioxide Anion Gap BUN Creatinine Est GFR ( Amer) Est GFR (Non-Af Amer) Random Glucose Calcium Total Bilirubin AST ALT Alkaline Phosphatase Lactate Dehydrogenase Troponin I Total Protein Albumin Globulin Albumin/Globulin Ratio Lipase Venous Blood Potassium Urine Color Urine Clarity Urine pH Ur Specific [place] Urine Protein Urine Glucose (UA) Urine Ketones Urine Blood Urine Nitrate Urine Bilirubin Urine Urobilinogen Ur Leukocyte Esterase Urine WBC (Auto) Urine RBC (Auto) Urine Bacteria Blood Type O POSITIVE Antibody Screen Negative 02/01/18 02/01/18 02/01/18 19:35 19:45 21:31 WBC RBC Hgb Hct MCV MCH MCHC RDW Plt Count MPV Neut % (Auto) Lymph % (Auto) [place] % (Auto) Eos % (Auto) Baso % (Auto) Neut # (Auto) Lymph # (Auto) [place] # (Auto) Eos # (Auto) Baso # (Auto) PT INR APTT pO2 33 VBG pH 7.52 H VBG pCO2 32 L VBG HCO3 27.1 VBG Total CO2 27.1 VBG O2 Sat (Calc) 72.0 H VBG Base Excess 3.7 H VBG Potassium 3.6 Sodium 137.0 139 Chloride 106.0 103 Glucose 160 H Lactate 1.3 Potassium 3.7 Carbon Dioxide 27 Anion Gap 13 BUN 20 Creatinine 0.5 L Est GFR ( Amer) > 60 Est GFR (Non-Af Amer) > 60 Random Glucose 145 H Calcium 9.0 Total Bilirubin 0.5 AST 99 H D ALT 60 Alkaline Phosphatase 122 Lactate Dehydrogenase 511 Troponin I < 0.0120 Total Protein 6.1 L Albumin 3.4 L Globulin 2.6 Albumin/Globulin Ratio 1.3 Lipase 336 H Venous Blood Potassium 3.6 Urine Color Yellow Urine Clarity Clear Urine pH 7.0 Ur Specific [place] 1.028 Urine Protein Negative Urine Glucose (UA) Normal Urine Ketones Negative Urine Blood Negative Urine Nitrate Negative Urine Bilirubin Negative Urine Urobilinogen 2.0 Ur Leukocyte Esterase Neg Urine WBC (Auto) 1 Urine RBC (Auto) 2 Urine Bacteria Rare Blood Type Antibody Screen
--- NOTE | 2018-02-02 10:47 | CP.PCM.PN ---
Subjective - Date & Time of Evaluation Date of Evaluation: 02/02/18 Time of Evaluation: 10:46 - Subjective Subjective: Patient is morning feeling sick. Nausea. No vomiting. Retching noted. Tachycardia noted. Currently on IV fluid. Spoke to the surgical team. Possibly surgical intervention this afternoon. Labs showing evidence of elevated WBC. Patient has gram-negative bacteria in the blood noted. Chest good air entry regular heart sound Right upper quadrant severe tenderness noted. Currently on Zosyn. Will add amikacin. IV fluid bolus. Surgical follow-up and evaluation. Patient definitely will need a surgical intervention with the possibility of the acute distended infected gallbladder. Spoke to the patient in detail. Patient is agreeing for the surgical intervention. We will follow-up the patient Objective - Vital Signs/Intake and Output Vital Signs (last 24 hours): Temp Pulse Resp BP Pulse Ox 98.3 F 136 H 20 106/68 95 02/02/18 08:43 02/02/18 08:43 02/02/18 08:43 02/02/18 08:43 02/02/18 08:43 Intake and Output: 02/02/18 02/02/18 06:59 18:59 Intake Total 225 Balance 225 - Medications Medications: Current Medications Heparin Sodium (Porcine) (Heparin) 5,000 units SC Q8 [facility] Last Admin: 02/02/18 06:04 Dose: 5,000 units Piperacillin Sod/Tazobactam Sod (Zosyn 3.375 Gm Iv Premix) 3.375 gm in 50 mls @ 100 mls/hr IVPB Q8 [facility] PRN Reason: Protocol Last Admin: 02/02/18 06:03 Dose: 100 mls/hr Sodium Chloride (Sodium Chloride 0.9%) 1,000 mls @ 100 mls/hr IV .Q10H [facility] Last Admin: 02/02/18 09:02 Dose: 100 mls/hr Amikacin Sulfate 250 mg/ (Sodium Chloride) 101 mls @ 100 mls/hr IV Q8 [facility] PRN Reason: Protocol Stop: 02/04/18 10:30 Morphine Sulfate (Morphine) 2 mg IVP Q4 PRN PRN Reason: abd pain Last Admin: 02/02/18 09:18 Dose: 2 mg Ondansetron HCl (Zofran Inj) 4 mg IVP Q6H PRN PRN Reason: Nausea/Vomiting Pantoprazole Sodium (Protonix Inj) 40 mg IVP DAILY [facility] Last Admin: 02/02/18 10:17 Dose: 40 mg - Labs Labs: 02/01/18 19:14 02/01/18 19:45 PT 17.2 SECONDS (9.7-12.2) H 02/01/18 19:14 INR 1.6 02/01/18 19:14 APTT 40 SECONDS (21-34) H 02/01/18 19:14
[2018-02-02] MEDS ORDERED: Lidocaine 2% MPF (5 ml) Inj ONE (12:21)
[2018-02-02] MEDS ORDERED: Midazolam 2 MG/2 ML VIAL ONE (12:42)
--- NOTE | 2018-02-02 12:53 | PCM.SURG1 ---
Surgeon's Initial Post Op Note - Surgeon's Notes Surgeon: Adolph Valderrama MD Parking Line Painter: NONE Type of Anesthesia: IV Sedation Pre-Operative Diagnosis: Cholecystitis Operative Findings: US showed distended GB with sludge Post-Operative Diagnosis: Cholecystitis Operation Performed: Cholecystostomy tube placement Specimen/Specimens Removed: 70 cc of bile Estimated Blood Loss: EBL {In ML}: 1 Blood Products Given: N/A Drains Used: Arjun Rojas Post-Op Condition: Fair Date of Surgery/Procedure: 02/02/18 Time of Surgery/Procedure: 12:50
[2018-02-03] MEDS: Sodium Chloride 0.9% 1,000 ML IV SCH ×3 (03:47→22:30)
[2018-02-03] MEDS: Piperacill/Tazo 3.375gm in Dex 3.375 GM/50 ML BAG IVPB SCH ×3 (05:47→22:29)
[2018-02-03 07:44] LABS: BASO % 0.2 % (0.0-2.0); EOS # 0.9 K/uL (0.0-0.7); EOS % 4.5 % (0.0-4.0); HEMOGLOBIN 10.6 g/dL (12.0-18.0); LYMPH # 0.7 K/uL (1.0-4.3); LYMPH % 3.6 % (20.0-40.0); MEAN CORPUSCULAR HEMOGLOBIN 31.6 pg (27.0-31.0); MEAN CORPUSCULAR HGB CONC 33.6 g/dL (33.0-37.0); MEAN PLATELET VOLUME 8.6 fL (7.2-11.7); MONO # 0.5 K/uL (0.0-0.8); MONO % 2.4 % (0.0-10.0); NEUT # 17.3 K/uL (1.8-7.0); NEUT % 89.3 % (50.0-75.0); RBC 3.37 Mil/uL (4.40-5.90); RED CELL DISTRIBUTION WIDTH 13.3 % (11.5-14.5)
[2018-02-03 07:53] LABS: MEAN CELL VOLUME 94.1 fL (80.0-94.0); WHITE BLOOD COUNT 19.4 K/uL (4.8-10.8)
[2018-02-03 07:54] LABS: PLATELET COUNT 122 K/uL (130-400)
[2018-02-03 08:16] LABS: ALB/GLOB RATIO 1.1 (1.0-2.1); ALBUMIN 2.6 g/dL (3.5-5.0); ALT/SGPT 809 U/L (21-72); AST/SGOT 717 U/L (17-59); BLOOD UREA NITROGEN 26 mg/dL (9-20); CALCIUM 7.7 mg/dl (8.6-10.4); GFR NON-AFRICAN AMERICAN > 60
[2018-02-03] MEDS ORDERED: Dextrose 50% SYRINGE Inj (50 ml) ONE (08:32)
--- NOTE | 2018-02-03 08:40 | CP.PCM.PN ---
Subjective - Date & Time of Evaluation Date of Evaluation: 02/03/18 Time of Evaluation: 08:00 - Subjective Subjective: Patient seen and examined. NAEO. S/p cholecystostomy tube with 70cc of bile drained from GB. Reports feeling better. Objective - Vital Signs/Intake and Output Vital Signs (last 24 hours): Temp Pulse Resp BP Pulse Ox 98.2 F 117 H 20 96/60 L 99 02/03/18 07:36 02/03/18 07:36 02/03/18 07:36 02/03/18 07:36 02/03/18 07:36 Intake and Output: 02/03/18 02/03/18 06:59 18:59 Intake Total 200 1000 Output Total 575 470 Balance -375 530 - Medications Medications: Current Medications Heparin Sodium (Porcine) (Heparin) 5,000 units SC Q8 [facility] Last Admin: 02/02/18 06:04 Dose: 5,000 units Piperacillin Sod/Tazobactam Sod (Zosyn 3.375 Gm Iv Premix) 3.375 gm in 50 mls @ 100 mls/hr IVPB Q8 [facility] PRN Reason: Protocol Last Admin: 02/03/18 05:47 Dose: 100 mls/hr Sodium Chloride (Sodium Chloride 0.9%) 1,000 mls @ 100 mls/hr IV .Q10H [facility] Last Admin: 02/03/18 03:47 Dose: Not Given Amikacin Sulfate 250 mg/ (Sodium Chloride) 101 mls @ 101 mls/hr IV Q8H [facility] PRN Reason: Protocol Last Admin: 02/03/18 03:42 Dose: 101 mls/hr Morphine Sulfate (Morphine) 2 mg IVP Q4 PRN PRN Reason: abd pain Last Admin: 02/02/18 14:32 Dose: 2 mg Ondansetron HCl (Zofran Inj) 4 mg IVP Q6H PRN PRN Reason: Nausea/Vomiting Pantoprazole Sodium (Protonix Inj) 40 mg IVP DAILY [facility] Last Admin: 02/02/18 10:17 Dose: 40 mg - Labs Labs: 02/03/18 07:16 02/03/18 07:16 PT 17.2 SECONDS (9.7-12.2) H 02/01/18 19:14 INR 1.6 02/01/18 19:14 APTT 40 SECONDS (21-34) H 02/01/18 19:14 - Constitutional Appears: No Acute Distress - Head Exam Head Exam: NORMOCEPHALIC - Eye Exam Eye Exam: Normal appearance - ENT Exam ENT Exam: Mucous Membranes Moist - Respiratory Exam Respiratory Exam: NORMAL BREATHING PATTERN - Cardiovascular Exam Cardiovascular Exam: +S1, +S2 - GI/Abdominal Exam GI & Abdominal Exam: Soft, Tenderness Additional comments: RUQ tenderness - Neurological Exam Neurological Exam: Alert, Awake, Oriented x3 - Psychiatric Exam Psychiatric exam: Normal Mood - Skin Skin Exam: Dry, Intact, Warm Assessment and Plan - Assessment and Plan (Free Text) Assessment: 67M with cholecystitis s/p IR cholecystostomy tube placement Plan: NPO IVF ABx Analgesic prn Antiemetic prn F/u drain output Likely plan for surgery in 6 weeks- pending pt's clinical course F/u AM labs Replete electrolytes prn Further recs per Dr. Chalino Mata PGY3
[2018-02-03 10:52] LABS: BANDS 5 % (0-2); LYMPHOCYTE 11 % (20-40); MONOCYTE 1 % (0-10); NEUTROPHIL 83 % (50-75); TOTAL CELLS COUNTED 100
[2018-02-03 10:56] LABS: PLATELET ESTIMATE NORMAL (NORMAL)
--- NOTE | 2018-02-03 22:47 | CARD ---
APPROVED REPORT Date of service: 02/01/2018 EKG Measurement Heart [id number] <Conclusion> Normal sinus rhythm Normal ECG
[2018-02-04] MEDS: Sodium Chloride 0.9% 1,000 ML IV SCH ×5 (00:46→20:44)
[2018-02-04] MEDS: Piperacill/Tazo 3.375gm in Dex 3.375 GM/50 ML BAG IVPB SCH ×3 (05:37→21:00)
--- NOTE | 2018-02-04 08:31 | CP.PCM.PN ---
Subjective - Date & Time of Evaluation Date of Evaluation: 02/04/18 Time of Evaluation: 08:28 - Subjective Subjective: Surgery PT seen and examined. Drain in place 200cc biliuos /24hrs. Pain controlle.d denies nausea , vomiting. TOlerating CLD. Objective - Vital Signs/Intake and Output Vital Signs (last 24 hours): Temp Pulse Resp BP Pulse Ox 99.7 F H 108 H 20 100/58 L 98 02/04/18 00:00 02/04/18 00:00 02/04/18 00:00 02/04/18 00:00 02/04/18 00:00 Intake and Output: 02/04/18 02/04/18 06:59 18:59 Intake Total 1180 Output Total 50 Balance 1130 - Medications Medications: Current Medications Heparin Sodium (Porcine) (Heparin) 5,000 units SC Q8 [facility] Last Admin: 02/02/18 06:04 Dose: 5,000 units Piperacillin Sod/Tazobactam Sod (Zosyn 3.375 Gm Iv Premix) 3.375 gm in 50 mls @ 100 mls/hr IVPB Q8 [facility] PRN Reason: Protocol Last Admin: 02/04/18 05:37 Dose: 100 mls/hr Amikacin Sulfate 250 mg/ (Sodium Chloride) 101 mls @ 101 mls/hr IV Q8H [facility] PRN Reason: Protocol Last Admin: 02/04/18 03:31 Dose: 101 mls/hr Dextrose (Dextrose 10% In Water) 1,000 mls @ 40 mls/hr IV .Q24H [facility] Last Admin: 02/03/18 12:02 Dose: 40 mls/hr Sodium Chloride (Sodium Chloride 0.9%) 1,000 mls @ 125 mls/hr IV .Q8H [facility] Last Admin: 02/04/18 03:45 Dose: Not Given Morphine Sulfate (Morphine) 2 mg IVP Q4 PRN PRN Reason: abd pain Last Admin: 02/03/18 12:01 Dose: 2 mg Ondansetron HCl (Zofran Inj) 4 mg IVP Q6H PRN PRN Reason: Nausea/Vomiting Pantoprazole Sodium (Protonix Inj) 40 mg IVP DAILY [facility] Last Admin: 02/03/18 09:26 Dose: 40 mg - Labs Labs: 02/03/18 07:16 02/03/18 07:16 PT 17.2 SECONDS (9.7-12.2) H 02/01/18 19:14 INR 1.6 02/01/18 19:14 APTT 40 SECONDS (21-34) H 02/01/18 19:14 - Constitutional Appears: No Acute Distress - Head Exam Head Exam: ATRAUMATIC, NORMAL INSPECTION, NORMOCEPHALIC - Eye Exam Eye Exam: EOMI, Normal appearance, PERRL Pupil Exam: NORMAL ACCOMODATION, PERRL - ENT Exam ENT Exam: Mucous Membranes Moist, Normal Exam - Neck Exam Neck Exam: Full ROM, Normal Inspection. absent: Lymphadenopathy - Respiratory Exam Respiratory Exam: NORMAL BREATHING PATTERN - Cardiovascular Exam Cardiovascular Exam: Tachycardia - GI/Abdominal Exam GI & Abdominal Exam: Soft, Tenderness. absent: Distended Additional comments: R drain in place biliuous 200cc /24hrs - Extremities Exam Extremities Exam: Full ROM, Normal Inspection - Back Exam Back Exam: NORMAL INSPECTION - Neurological Exam Neurological Exam: Alert, Awake, CN II-XII Intact, Normal Gait, Oriented x3 - Psychiatric Exam Psychiatric exam: Normal Affect, Normal Mood - Skin Skin Exam: Dry, Intact, Normal Color, Warm Assessment and Plan - Assessment and Plan (Free Text) Assessment: 67M with cholecystitis s/p IR cholecystostomy tube placement Bateremia Bile cx GNR Plan: CLD May advance as tolerated IVF ABx Analgesic prn Antiemetic prn F/u drain output Likely plan for surgery in 6 weeks- pending pt's clinical course F/u AM labs Replete electrolytes prn Further recs per Dr. Allred
[2018-02-04 09:18] LABS: EOS # 0.1 K/uL (0.0-0.7); HEMOGLOBIN 9.7 g/dL (12.0-18.0); LYMPH # 0.5 K/uL (1.0-4.3); MEAN CORPUSCULAR HEMOGLOBIN 31.9 pg (27.0-31.0); MEAN PLATELET VOLUME 8.6 fL (7.2-11.7)
[2018-02-04 09:27] LABS: BASO % 0.2 % (0.0-2.0); EOS % 0.7 % (0.0-4.0); LYMPH % 4.3 % (20.0-40.0); MEAN CELL VOLUME 93.2 fL (80.0-94.0); MEAN CORPUSCULAR HGB CONC 34.2 g/dL (33.0-37.0); MONO # 0.2 K/uL (0.0-0.8); MONO % 2.1 % (0.0-10.0); NEUT # 11.2 K/uL (1.8-7.0); NEUT % 92.7 % (50.0-75.0); RBC 3.05 Mil/uL (4.40-5.90); RED CELL DISTRIBUTION WIDTH 13.5 % (11.5-14.5); WHITE BLOOD COUNT 12.1 K/uL (4.8-10.8)
[2018-02-04 09:29] LABS: PLATELET COUNT 93 K/uL (130-400)
[2018-02-04 10:27] LABS: ALB/GLOB RATIO 1.1 (1.0-2.1); ALBUMIN 2.4 g/dL (3.5-5.0); ALT/SGPT 443 U/L (21-72); AST/SGOT 183 U/L (17-59); BLOOD UREA NITROGEN 10 mg/dL (9-20); CALCIUM 8.1 mg/dl (8.6-10.4); GFR NON-AFRICAN AMERICAN > 60
--- NOTE | 2018-02-04 10:57 | CP.PCM.CON ---
History of Present Illness - History of Present Illness History of Present Illness: Asked to see pt for elev LFTs Covering Dr Canas 67 yo male h/o HTN,asthma,, gastric CA with nodes mets, s/p surgery- gastrectomy , jejunostomy, poor nutrition on TPN as outpt- now admitted with abdom pain, RUQ pain, CT- cholexystitis- s/p GB tubbe placement. LFTs are elevated. Review of Systems - Constitutional Constitutional: Fatigue, Weight Loss, Weakness - EENT Eyes: absent: Photophobia Nose/Mouth/Throat: absent: Dysphagia Additional comments: reports heartburn - Cardiovascular Cardiovascular: absent: Chest Pain - Respiratory Respiratory: absent: Hemoptysis, Wheezing - Gastrointestinal Gastrointestinal: Abdominal Pain. absent: Hematemesis, Hematochezia, Loose Stools, Melena, Vomiting - Genitourinary Genitourinary: absent: Hematuria - Musculoskeletal Musculoskeletal: absent: Muscle Cramps - Integumentary Integumentary: absent: Rash - Neurological Neurological: absent: Convulsions Past Patient History - Infectious Disease Hx of Infectious Diseases: None - Past Medical History & Family History Past Medical History?: Yes - Past Social History Smoking Status: Never Smoked - CARDIAC Hx Pacemaker: No - PULMONARY Hx Asthma: Yes Hx Sleep Apnea: No - NEUROLOGICAL Hx Seizures: No - HEENT Hx HEENT Problems: Yes Hx Cataracts: Yes (RIGHT EYE, RECENTLY REMOVED, 04/05/16) - RENAL Hx Chronic Kidney Disease: No - ENDOCRINE/METABOLIC Hx Endocrine Disorders: No - HEMATOLOGICAL/ONCOLOGICAL Hx Anemia: Yes (IRON DEFICIENCY) - INTEGUMENTARY Hx Dermatological Problems: No - MUSCULOSKELETAL/RHEUMATOLOGICAL Hx Arthritis: Yes - GASTROINTESTINAL Hx Gastrointestinal Disorders: Yes Hx Fatty Liver Disease: Yes Hx Gastroesophageal Reflux: Yes Hx Hemorrhoids: Yes (WITH BLEEDING) Other/Comment: FATTY LIVER, COLONOSCOPY 07/06; stomach Ca - GENITOURINARY/GYNECOLOGICAL Hx Genitourinary Disorders: No - PSYCHIATRIC Hx Depression: Yes (NOT TAKING MED. ANYMORE; CLAIMS FEELS BETTER) Hx Substance Use: No - ANESTHESIA Hx Anesthesia: Yes Hx Anesthesia Reactions: No Hx Malignant Hyperthermia: No Meds Allergies/Adverse Reactions: Allergies Allergy/AdvReac Type Severity Reaction Status Date / Time No Known Allergies Allergy Verified 10/31/17 08:33 - Medications Medications: Current Medications Heparin Sodium (Porcine) (Heparin) 5,000 units SC Q8 [facility] Last Admin: 02/02/18 06:04 Dose: 5,000 units Piperacillin Sod/Tazobactam Sod (Zosyn 3.375 Gm Iv Premix) 3.375 gm in 50 mls @ 100 mls/hr IVPB Q8 [facility] PRN Reason: Protocol Last Admin: 02/04/18 05:37 Dose: 100 mls/hr Amikacin Sulfate 250 mg/ (Sodium Chloride) 101 mls @ 101 mls/hr IV Q8H [facility] PRN Reason: Protocol Last Admin: 02/04/18 03:31 Dose: 101 mls/hr Dextrose (Dextrose 10% In Water) 1,000 mls @ 40 mls/hr IV .Q24H [facility] Last Admin: 02/03/18 12:02 Dose: 40 mls/hr Sodium Chloride (Sodium Chloride 0.9%) 1,000 mls @ 125 mls/hr IV .Q8H [facility] Last Admin: 02/04/18 10:02 Dose: 125 mls/hr Morphine Sulfate (Morphine) 2 mg IVP Q4 PRN PRN Reason: abd pain Last Admin: 02/03/18 12:01 Dose: 2 mg Ondansetron HCl (Zofran Inj) 4 mg IVP Q6H PRN PRN Reason: Nausea/Vomiting Pantoprazole Sodium (Protonix Inj) 40 mg IVP DAILY [facility] Last Admin: 02/04/18 10:49 Dose: 40 mg Physical Exam - Constitutional Appears: Non-toxic - Respiratory Exam Respiratory Exam: Clear to Auscultation Bilateral - Cardiovascular Exam Cardiovascular Exam: RRR - GI/Abdominal Exam GI & Abdominal Exam: Normal Bowel Sounds, Soft, Tenderness. absent: Guarding, Mass, Rebound Additional comments: GB tube in palce, RUQ tender mild - Extremities Exam Extremities exam: Negative for: calf tenderness - Neurological Exam Neurological exam: Alert, Oriented x3 Results - Vital Signs Recent Vital Signs: Last Vital Signs Temp 99.7 F H 02/04/18 00:00 Pulse 108 H 02/04/18 00:00 Resp 20 02/04/18 00:00 BP 100/58 L 02/04/18 00:00 Pulse Ox 98 02/04/18 00:00 - Labs Result Diagrams: 02/04/18 09:02 02/04/18 09:02 Labs: Laboratory Results - last 24 hr 02/03/18 02/03/18 02/03/18 07:16 16:43 16:46 WBC RBC Hgb Hct MCV MCH MCHC RDW Plt Count MPV Neut % (Auto) Lymph % (Auto) Rich % (Auto) Eos % (Auto) Baso % (Auto) Neut # (Auto) Lymph # (Auto) Rich # (Auto) Eos # (Auto) Baso # (Auto) Neutrophils % (Manual) 83 H Band Neutrophils % 5 H Lymphocytes % (Manual) 11 L Monocytes % (Manual) 1 Platelet Estimate Normal RBC Morphology Normal Sodium Potassium Chloride Carbon Dioxide Anion Gap BUN Creatinine Est GFR ( Amer) Est GFR (Non-Af Amer) POC Glucose (mg/dL) 68 71 Random Glucose Calcium Phosphorus Magnesium Total Bilirubin AST ALT Alkaline Phosphatase Total Protein Albumin Globulin Albumin/Globulin Ratio 02/03/18 02/04/18 02/04/18 21:20 02:17 06:19 WBC RBC Hgb Hct MCV MCH MCHC RDW Plt Count MPV Neut % (Auto) Lymph % (Auto) Rich % (Auto) Eos % (Auto) Baso % (Auto) Neut # (Auto) Lymph # (Auto) Rich # (Auto) Eos # (Auto) Baso # (Auto) Neutrophils % (Manual) Band Neutrophils % Lymphocytes % (Manual) Monocytes % (Manual) Platelet Estimate RBC Morphology Sodium Potassium Chloride Carbon Dioxide Anion Gap BUN Creatinine Est GFR ( Amer) Est GFR (Non-Af Amer) POC Glucose (mg/dL) 82 91 100 Random Glucose Calcium Phosphorus Magnesium Total Bilirubin AST ALT Alkaline Phosphatase Total Protein Albumin Globulin Albumin/Globulin Ratio 02/04/18 02/04/18 09:02 09:02 WBC 12.1 H RBC 3.05 L Hgb 9.7 L Hct 28.4 L MCV 93.2 MCH 31.9 H MCHC 34.2 RDW 13.5 Plt Count 93 L D MPV 8.6 Neut % (Auto) 92.7 H Lymph % (Auto) 4.3 L Rich % (Auto) 2.1 Eos % (Auto) 0.7 Baso % (Auto) 0.2 Neut # (Auto) 11.2 H Lymph # (Auto) 0.5 L Rich # (Auto) 0.2 Eos # (Auto) 0.1 Baso # (Auto) 0.0 Neutrophils % (Manual) Band Neutrophils % Lymphocytes % (Manual) Monocytes % (Manual) Platelet Estimate RBC Morphology Sodium 139 Potassium 2.7 L Chloride 104 Carbon Dioxide 29 Anion Gap 8 L BUN 10 Creatinine 0.6 L Est GFR ( Amer) > 60 Est GFR (Non-Af Amer) > 60 POC Glucose (mg/dL) Random Glucose 75 Calcium 8.1 L Phosphorus 0.9 L* Magnesium 1.7 Total Bilirubin 2.3 H AST 183 H D ALT 443 H D Alkaline Phosphatase 277 H Total Protein 4.7 L Albumin 2.4 L Globulin 2.3 Albumin/Globulin Ratio 1.1 Assessment & Plan (1) Abnormal LFTs Assessment and Plan: Cholecystitis. Consider sepsis, consider mets. Status: Acute (2) Gastric carcinoma Assessment and Plan: Had chemo x 1 then refused. Status: Acute (3) Anemia Status: Chronic (4) Benign essential HTN Status: Chronic (5) GERD (gastroesophageal reflux disease) Assessment and Plan: Give PPI Status: Chronic (6) Cholecystitis Assessment and Plan: s/p GB tube. Follow LFTs. Status: Acute (7) Malnutrition Status: Acute
[2018-02-04 11:39] LABS: BANDS 7 % (0-2); LYMPHOCYTE 4 % (20-40); MONOCYTE 2 % (0-10); NEUTROPHIL 87 % (50-75); PLATELET ESTIMATE DECREASED (NORMAL); TOTAL CELLS COUNTED 100
[2018-02-04 11:40] LABS: ANISOCYTOSIS SLIGHT; HYPOCHROMIC SLIGHT
--- NOTE | 2018-02-04 12:39 | CARD ---
APPROVED REPORT Date of service: 02/03/2018 EXAM: Two-dimensional and M-mode echocardiogram with Doppler and color Doppler. INDICATION BLOOD CULTURE POSITIVE RISK FACTORS Hypertension 2D DIMENSIONS IVSd1.3 (0.7-1.1cm)Aortic Root (2D)3.4 (2.0-3.7cm) LVDd3.9 (3.9-5.9cm)LVOT Diameter2.1 (1.8-2.4cm) PWd1.3 (0.7-1.1cm)LVDs3.0 (2.5-4.0cm) FS (%) 24.9 %LVEF (%)49.8 (>50%) M-Mode DIMENSIONS Left Atrium (MM)4.17 (2.5-4.0cm)Aortic Root3.06 (2.2-3.7cm) Aortic Cusp Exc.1.77 (1.5-2.0cm) Mitral Valve MV E Fpmdrpfh03.7cm/sMV A Egvizxox66.8cm/sMV [id number] E/A ratio2.2MVA (PHT)9.03cm2 TDI E/Lateral E'0.0E/Medial E'0.0 Pulmonary Valve PV Peak Ovlmijbb94.4cm/sPV Peak Grad.2mmHg Tricuspid Valve TR Peak [id number]/sTR Peak Gr.[id number] LEFT VENTRICLE The left ventricle is normal size. There is normal left ventricular wall thickness. The left ventricular function is normal. The left ventricular ejection fraction is within the normal range. No regional wall motion abnormalities noted. Suboptimal No left ventricle thrombus noted on this study. There is no ventricular septal defect visualized. There is no left ventricular aneurysm. There is no mass noted in the left ventricle. RIGHT VENTRICLE The right ventricle is normal size. There is normal right ventricular wall thickness. The right ventricular systolic function is normal. ATRIA The left atrium is mildly dilated. The right atrium size is normal. The interatrial septum is intact with no evidence for an atrial septal defect. AORTIC VALVE The aortic valve is normal in structure and function. No aortic regurgitation is present. There is no aortic valvular stenosis. There is no aortic valvular vegetation. MITRAL VALVE The mitral valve is normal in structure and function. There is no evidence of mitral valve prolapse. There is no mitral valve stenosis. There is no mitral valve regurgitation noted. TRICUSPID VALVE The tricuspid valve is normal in structure and function. There is no tricuspid valve regurgitation noted. There is no tricuspid valve prolapse or vegetation. There is no tricuspid valve stenosis. PULMONIC VALVE The pulmonary valve is normal in structure and function. There is no pulmonic valvular regurgitation. There is no pulmonic valvular stenosis. GREAT VESSELS The aortic root is normal in size. The ascending aorta is normal in size. The pulmonary artery is normal. The IVC is normal in size and collapses >50% with inspiration. PERICARDIAL EFFUSION The pericardium appears normal. There is no pleural effusion. <Conclusion> The left ventricular function is normal. The left ventricular ejection fraction is within the normal range. No regional wall motion abnormalities noted. The left atrium is mildly dilated.
[2018-02-04] MEDS ORDERED: Magnesium Sulfate 1 gm in D5W 1 GM/100 ML BAG IVPB ONE (14:00)
--- NOTE | 2018-02-04 14:08 | CP.PCM.PN ---
Subjective - Date & Time of Evaluation Date of Evaluation: 02/04/18 Time of Evaluation: 14:07 Objective - Vital Signs/Intake and Output Vital Signs (last 24 hours): Temp Pulse Resp BP Pulse Ox 99.7 F H 108 H 20 100/58 L 98 02/04/18 00:00 02/04/18 00:00 02/04/18 00:00 02/04/18 00:00 02/04/18 00:00 Intake and Output: 02/04/18 02/04/18 06:59 18:59 Intake Total 1180 Output Total 50 Balance 1130 - Medications Medications: Current Medications Heparin Sodium (Porcine) (Heparin) 5,000 units SC Q8 [facility] Last Admin: 02/02/18 06:04 Dose: 5,000 units Piperacillin Sod/Tazobactam Sod (Zosyn 3.375 Gm Iv Premix) 3.375 gm in 50 mls @ 100 mls/hr IVPB Q8 [facility] PRN Reason: Protocol Last Admin: 02/04/18 05:37 Dose: 100 mls/hr Amikacin Sulfate 250 mg/ (Sodium Chloride) 101 mls @ 101 mls/hr IV Q8H [facility] PRN Reason: Protocol Last Admin: 02/04/18 11:37 Dose: 101 mls/hr Dextrose (Dextrose 10% In Water) 1,000 mls @ 40 mls/hr IV .Q24H [facility] Last Admin: 02/04/18 11:24 Dose: 40 mls/hr Sodium Chloride (Sodium Chloride 0.9%) 1,000 mls @ 125 mls/hr IV .Q8H [facility] Last Admin: 02/04/18 11:23 Dose: Not Given Magnesium Sulfate/Dextrose (Magnesium Sulfate 1 Gm/100 Ml D5w) 1 gm in 100 mls @ 100 mls/hr IVPB ONCE ONE Stop: 02/04/18 14:59 Potassium Chloride (Potassium Chloride 20 Meq/100 Ml) 20 meq in 100 mls @ 50 mls/hr IVPB ONCE ONE Stop: 02/04/18 15:59 Morphine Sulfate (Morphine) 2 mg IVP Q4 PRN PRN Reason: abd pain Last Admin: 02/03/18 12:01 Dose: 2 mg Ondansetron HCl (Zofran Inj) 4 mg IVP Q6H PRN PRN Reason: Nausea/Vomiting Pantoprazole Sodium (Protonix Inj) 40 mg IVP DAILY [facility] Last Admin: 02/04/18 10:49 Dose: 40 mg - Labs Labs: 02/04/18 09:02 02/04/18 09:02 PT 17.2 SECONDS (9.7-12.2) H 02/01/18 19:14 INR 1.6 02/01/18 19:14 APTT 40 SECONDS (21-34) H 02/01/18 19:14
[2018-02-04] MEDS: Potassium Phosphate 15 MMOLE in Sodium Chloride 0.9% 250 ML IVPB SCH ×2 (14:39→18:30)
[2018-02-04 15:03] LABS: CK-MB < 0.22 ng/mL (0.0-3.38)
[2018-02-04] MEDS ORDERED: Potassium Phosphate 15 MMOLE in Sodium Chloride 0.9% 250 ML IVPB SCH (16:00)
[2018-02-04] MEDS ORDERED: Alum-Mag Hydrox-Simethicone Susp (30 mL) PO PRN (17:39)
[2018-02-04] MEDS: Docusate-Senna 50 mg-8.6 mg Tab PO SCH (18:25)
[2018-02-04 22:18] LABS: ALBUMIN 2.4 g/dL (3.5-5.0); ALT/SGPT 332 U/L (21-72); AST/SGOT 97 U/L (17-59); BLOOD UREA NITROGEN 8 mg/dL (9-20); GFR NON-AFRICAN AMERICAN > 60
[2018-02-05] MEDS: Sodium Chloride 0.9% 1,000 ML IV SCH ×3 (03:44→19:36)
[2018-02-05] MEDS: Piperacill/Tazo 3.375gm in Dex 3.375 GM/50 ML BAG IVPB SCH ×3 (05:10→22:52)
[2018-02-05 06:21] LABS: BASO % 0.1 % (0.0-2.0); EOS % 0.9 % (0.0-4.0); LYMPH # 0.4 K/uL (1.0-4.3); LYMPH % 6.2 % (20.0-40.0); MEAN CELL VOLUME 92.6 fL (80.0-94.0); MEAN CORPUSCULAR HEMOGLOBIN 32.1 pg (27.0-31.0); MEAN CORPUSCULAR HGB CONC 34.6 g/dL (33.0-37.0); MEAN PLATELET VOLUME 8.1 fL (7.2-11.7); MONO # 0.3 K/uL (0.0-0.8); MONO % 5.3 % (0.0-10.0); NEUT % 87.5 % (50.0-75.0); PLATELET COUNT 77 K/uL (130-400); RBC 3.11 Mil/uL (4.40-5.90); RED CELL DISTRIBUTION WIDTH 13.6 % (11.5-14.5); WHITE BLOOD COUNT 5.8 K/uL (4.8-10.8)
[2018-02-05 06:39] LABS: ALB/GLOB RATIO 0.9 (1.0-2.1); ALBUMIN 2.3 g/dL (3.5-5.0); ALT/SGPT 290 U/L (21-72); AST/SGOT 73 U/L (17-59); BLOOD UREA NITROGEN 8 mg/dL (9-20); CALCIUM 7.8 mg/dl (8.6-10.4); GFR NON-AFRICAN AMERICAN > 60
--- NOTE | 2018-02-05 07:55 | CP.PCM.PN ---
Subjective - Date & Time of Evaluation Date of Evaluation: 02/05/18 Time of Evaluation: 07:53 - Subjective Subjective: General surgery progress note for Dr. Juanjose Spencer, PGY-2 Pt S & E at bedside at 0720 Pt reports abdominal pain much improved. Had one episode of emesis after drinking water overnight. Denies current N & V, BM. Tolerating diet. Aliza tube with 50 cc/24hrs Objective - Vital Signs/Intake and Output Vital Signs (last 24 hours): Temp Pulse Resp BP Pulse Ox 99.4 F 96 H 23 118/73 97 02/05/18 04:00 02/05/18 04:00 02/05/18 04:00 02/05/18 04:00 02/05/18 04:00 Intake and Output: 02/05/18 02/05/18 06:59 18:59 Intake Total 1590 Output Total 1050 Balance 540 - Medications Medications: Current Medications Al Hydrox/Mg Hydrox/Simethicone (Maalox Plus 30 Ml) 30 ml PO TID PRN PRN Reason: Indigestion / Heartburn Heparin Sodium (Porcine) (Heparin) 5,000 units SC Q8 [facility] Last Admin: 02/02/18 06:04 Dose: 5,000 units Piperacillin Sod/Tazobactam Sod (Zosyn 3.375 Gm Iv Premix) 3.375 gm in 50 mls @ 100 mls/hr IVPB Q8 [facility] PRN Reason: Protocol Last Admin: 02/05/18 05:10 Dose: 100 mls/hr Amikacin Sulfate 250 mg/ (Sodium Chloride) 101 mls @ 101 mls/hr IV Q8H [facility] PRN Reason: Protocol Last Admin: 02/05/18 03:44 Dose: 101 mls/hr Dextrose (Dextrose 10% In Water) 1,000 mls @ 40 mls/hr IV .Q24H [facility] Last Admin: 02/04/18 11:24 Dose: 40 mls/hr Sodium Chloride (Sodium Chloride 0.9%) 1,000 mls @ 125 mls/hr IV .Q8H [facility] Last Admin: 02/05/18 03:44 Dose: 125 mls/hr Morphine Sulfate (Morphine) 2 mg IVP Q4 PRN PRN Reason: abd pain Last Admin: 02/03/18 12:01 Dose: 2 mg Ondansetron HCl (Zofran Inj) 4 mg IVP Q6H PRN PRN Reason: Nausea/Vomiting Last Admin: 02/04/18 21:11 Dose: 4 mg Pantoprazole Sodium (Protonix Inj) 40 mg IVP DAILY [facility] Last Admin: 02/04/18 10:49 Dose: 40 mg Potassium Chloride (Potassium Chloride Oral Soln) 40 meq PO ONCE ONE Stop: 02/05/18 07:46 Potassium Phos/Sodium Phos (Neutra-Phos) 1 pkt PO ONCE ONE Stop: 02/05/18 07:47 Senna/Docusate Sodium (Senokot S 50 Mg-8.6 Mg) 1 tab PO BID [facility] Last Admin: 02/04/18 18:25 Dose: 1 tab - Labs Labs: 02/05/18 06:07 02/05/18 06:07 PT 17.2 SECONDS (9.7-12.2) H 02/01/18 19:14 INR 1.6 02/01/18 19:14 APTT 40 SECONDS (21-34) H 02/01/18 19:14 - Constitutional Appears: Non-toxic, No Acute Distress - Head Exam Head Exam: ATRAUMATIC, NORMAL INSPECTION, NORMOCEPHALIC - Eye Exam Eye Exam: EOMI, Normal appearance - ENT Exam ENT Exam: Mucous Membranes Moist, Normal Exam - Neck Exam Neck Exam: Full ROM, Normal Inspection - Respiratory Exam Respiratory Exam: NORMAL BREATHING PATTERN - Cardiovascular Exam Cardiovascular Exam: REGULAR RHYTHM, +S1, +S2 - GI/Abdominal Exam GI & Abdominal Exam: Soft, Tenderness (mild, over aliza tube insertion site). absent: Distended, Firm, Guarding, Rigid Additional comments: Aliza tube insertion site in RUQ Dressing clean/dry/intact Bag with scant bilious output to bag - Extremities Exam Extremities Exam: Normal Inspection - Neurological Exam Neurological Exam: Alert, Awake, CN II-XII Intact, Oriented x3 - Psychiatric Exam Psychiatric exam: Normal Affect, Normal Mood - Skin Skin Exam: Dry, Intact, Normal Color, Warm Assessment and Plan - Assessment and Plan (Free Text) Assessment: 67M w/cholecystitis s/p IR cholecystostomy tube placement Plan: Ok for GI altered hepatic diet IVF Hypokalemia- 3.3 replaced K Hypophosphatemia- 1.8 replaced phos Pain control Monitor aliza tube output Bowel regimen Plan for elective outpatient cholecystectomy in ~6 wks pending clinical course No current surgical intervention at this time DW Dr. Chalino Spencer, PGY-2
--- NOTE | 2018-02-05 08:13 | CP.PCM.PN ---
Subjective - Date & Time of Evaluation Date of Evaluation: 02/05/18 Time of Evaluation: 08:10 - Subjective Subjective: Events noted since admission. Dr Seaman's assistance appreciated. Less pain. LFT's and WBC markedly improved after Cholecystostomy inserted. Had IR place GT for nutritional needs in recent past. Clinical story well knows and patient refused CTX following Gastrectomy with danie mets found. Objective - Vital Signs/Intake and Output Vital Signs (last 24 hours): Temp Pulse Resp BP Pulse Ox 99.4 F 96 H 23 118/73 97 02/05/18 04:00 02/05/18 04:00 02/05/18 04:00 02/05/18 04:00 02/05/18 04:00 Intake and Output: 02/05/18 02/05/18 06:59 18:59 Intake Total 1590 Output Total 1050 Balance 540 - Medications Medications: Current Medications Al Hydrox/Mg Hydrox/Simethicone (Maalox Plus 30 Ml) 30 ml PO TID PRN PRN Reason: Indigestion / Heartburn Heparin Sodium (Porcine) (Heparin) 5,000 units SC Q8 [facility] Last Admin: 02/02/18 06:04 Dose: 5,000 units Piperacillin Sod/Tazobactam Sod (Zosyn 3.375 Gm Iv Premix) 3.375 gm in 50 mls @ 100 mls/hr IVPB Q8 [facility] PRN Reason: Protocol Last Admin: 02/05/18 05:10 Dose: 100 mls/hr Amikacin Sulfate 250 mg/ (Sodium Chloride) 101 mls @ 101 mls/hr IV Q8H [facility] PRN Reason: Protocol Last Admin: 02/05/18 03:44 Dose: 101 mls/hr Dextrose (Dextrose 10% In Water) 1,000 mls @ 40 mls/hr IV .Q24H [facility] Last Admin: 02/04/18 11:24 Dose: 40 mls/hr Sodium Chloride (Sodium Chloride 0.9%) 1,000 mls @ 125 mls/hr IV .Q8H [facility] Last Admin: 02/05/18 03:44 Dose: 125 mls/hr Morphine Sulfate (Morphine) 2 mg IVP Q4 PRN PRN Reason: abd pain Last Admin: 02/03/18 12:01 Dose: 2 mg Ondansetron HCl (Zofran Inj) 4 mg IVP Q6H PRN PRN Reason: Nausea/Vomiting Last Admin: 02/04/18 21:11 Dose: 4 mg Pantoprazole Sodium (Protonix Inj) 40 mg IVP DAILY [facility] Last Admin: 02/04/18 10:49 Dose: 40 mg Potassium Chloride (Potassium Chloride Oral Soln) 40 meq PO ONCE ONE Stop: 02/05/18 07:46 Potassium Phos/Sodium Phos (Neutra-Phos) 1 pkt PO ONCE ONE Stop: 02/05/18 07:47 Senna/Docusate Sodium (Senokot S 50 Mg-8.6 Mg) 1 tab PO BID [facility] Last Admin: 02/04/18 18:25 Dose: 1 tab - Labs Labs: 02/05/18 06:07 02/05/18 06:07 PT 17.2 SECONDS (9.7-12.2) H 02/01/18 19:14 INR 1.6 02/01/18 19:14 APTT 40 SECONDS (21-34) H 02/01/18 19:14 - Constitutional Appears: Cachectic, Chronically Ill - Eye Exam Eye Exam: absent: Scleral icterus - Respiratory Exam Respiratory Exam: NORMAL BREATHING PATTERN - Cardiovascular Exam Cardiovascular Exam: REGULAR RHYTHM - GI/Abdominal Exam GI & Abdominal Exam: Soft, Tenderness, Diminished Bowel Sounds. absent: Rigid, Organomegaly, Rebound Additional comments: Cholecystostomy tube in place. - Extremities Exam Extremities Exam: Normal Inspection Assessment and Plan (1) Acute cholecystitis Assessment & Plan: S/P placement of Cholecystostomy tube Further management per IR and Surgery. Cholecystectomy when clinically stable. 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 S/P Gastrectomy Status: Chronic (4) Abnormal liver enzymes Assessment & Plan: LFTs improving after GB drainage via IR Status: Acute (5) Malnutrition following gastrointestinal surgery Assessment & Plan: Feeding tube placed by IR last month. EGD done recently shows no evidence of obstruction or recurrent disease in remnant. Small remnant leads to wide open reflux disease. Unlikely to benefit much from acid inhibition as patient has no acid producing gastric mucosa. Carafate recommended as bile acid binder. Status: Acute (6) GERD with esophagitis Assessment & Plan: As above Carafate as tolerated for bile acid binding. Status: Acute
[2018-02-05 08:36] LABS: EOSINOPHIL 1 % (0-4); LYMPHOCYTE 6 % (20-40); MONOCYTE 2 % (0-10); NEUTROPHIL 91 % (50-75); PLATELET ESTIMATE DECREASED (NORMAL); TOTAL CELLS COUNTED 100
[2018-02-05] MEDS ORDERED: Potassium Chloride 20 mEq/15 ml LIQ UD PO ONE (09:00)
[2018-02-05] MEDS ORDERED: Potassium & Sodium Phosphate PO ONE (09:00)
[2018-02-05] MEDS: Docusate-Senna 50 mg-8.6 mg Tab PO SCH ×2 (09:37→18:01)
--- NOTE | 2018-02-05 10:43 | US ---
PROCEDURE: Date of procedure: 02/02/2018 Procedure: 1. Percutaneous Cholecystostomy tube placement Medications: The patient was sedated by the anesthesiologist along with physiologic monitoring. 8 cubic centimeters lidocaine 2 percent HISTORY: Acute cholecystitis TECHNIQUE: Following informed consent the patient right abdomen was marked. The patient was placed supine on the interventional table and procedure time-out was called. Ultrasound showed distended gallbladder. At the patient sedated, the skin was anesthetized with 2 percent lidocaine. Under direct ultrasound guidance, a [place] catheter was advanced percutaneously into the gallbladder. Upon return of bile, an 035 wire was advanced into the gallbladder and was coiled within the gallbladder. The tract was dilated to accommodate 8.5 Lebanese drainage catheter which was formed within the gallbladder. The catheter was secured and attached to a drainage bag. IMPRESSION: Percutaneous placement of a 8.5 Fr cholecystostomy tube.
[2018-02-06] MEDS: Sodium Chloride 0.9% 1,000 ML IV SCH ×4 (03:19→21:30)
[2018-02-06] MEDS: Piperacill/Tazo 3.375gm in Dex 3.375 GM/50 ML BAG IVPB SCH ×3 (06:01→21:24)
[2018-02-06 06:14] LABS: BASO % 0.7 % (0.0-2.0); HEMOGLOBIN 10.2 g/dL (12.0-18.0); LYMPH # 0.4 K/uL (1.0-4.3); MEAN CELL VOLUME 91.9 fL (80.0-94.0); MEAN CORPUSCULAR HEMOGLOBIN 31.7 pg (27.0-31.0); MEAN CORPUSCULAR HGB CONC 34.5 g/dL (33.0-37.0); MEAN PLATELET VOLUME 7.6 fL (7.2-11.7); MONO # 0.3 K/uL (0.0-0.8); MONO % 12.2 % (0.0-10.0); NEUT # 1.6 K/uL (1.8-7.0); NEUT % 68.1 % (50.0-75.0); NRBC % 0.1 % (0.0-2.0); RBC 3.22 Mil/uL (4.40-5.90); RED CELL DISTRIBUTION WIDTH 13.8 % (11.5-14.5); WHITE BLOOD COUNT 2.3 K/uL (4.8-10.8)
[2018-02-06 06:32] LABS: ALBUMIN 2.3 g/dL (3.5-5.0); ALT/SGPT 192 U/L (21-72); AST/SGOT 42 U/L (17-59); BLOOD UREA NITROGEN 9 mg/dL (9-20); CALCIUM 7.7 mg/dl (8.6-10.4); GFR NON-AFRICAN AMERICAN > 60
[2018-02-06] MEDS ORDERED: Potassium Phosphate 15 MMOLE in Dextrose 5% In Water 250 ML IVPB ONE (08:00)
[2018-02-06] MEDS: Magnesium Sulfate 1 gm in D5W 1 GM/100 ML BAG IVPB SCH ×2 (08:11→09:02)
[2018-02-06] MEDS: Docusate-Senna 50 mg-8.6 mg Tab PO SCH ×2 (09:37→18:47)
--- NOTE | 2018-02-06 10:05 | CP.PCM.PN ---
Subjective - Date & Time of Evaluation Date of Evaluation: 02/06/18 Time of Evaluation: 10:02 - Subjective Subjective: c/o abdominal pain and chronic heartburn Objective - Vital Signs/Intake and Output Vital Signs (last 24 hours): Temp Pulse Resp BP Pulse Ox 98.6 F 94 H 21 121/55 L 96 02/06/18 08:00 02/06/18 08:00 02/06/18 08:00 02/06/18 08:00 02/06/18 08:00 Intake and Output: 02/06/18 02/06/18 06:59 18:59 Intake Total 1955 Output Total 2525 Balance -570 - Medications Medications: Current Medications Al Hydrox/Mg Hydrox/Simethicone (Maalox Plus 30 Ml) 30 ml PO TID PRN PRN Reason: Indigestion / Heartburn Heparin Sodium (Porcine) (Heparin) 5,000 units SC Q8 [facility] Last Admin: 02/02/18 06:04 Dose: 5,000 units Piperacillin Sod/Tazobactam Sod (Zosyn 3.375 Gm Iv Premix) 3.375 gm in 50 mls @ 100 mls/hr IVPB Q8 [facility] PRN Reason: Protocol Last Admin: 02/06/18 06:01 Dose: 100 mls/hr Amikacin Sulfate 250 mg/ (Sodium Chloride) 101 mls @ 101 mls/hr IV Q8H [facility] PRN Reason: Protocol Last Admin: 02/06/18 03:32 Dose: 101 mls/hr Dextrose (Dextrose 10% In Water) 1,000 mls @ 40 mls/hr IV .Q24H [facility] Last Admin: 02/05/18 16:53 Dose: 40 mls/hr Sodium Chloride (Sodium Chloride 0.9%) 1,000 mls @ 125 mls/hr IV .Q8H [facility] Last Admin: 02/06/18 03:19 Dose: 125 mls/hr Potassium Chloride (Potassium Chloride 20 Meq/100 Ml) 20 meq in 100 mls @ 50 mls/hr IVPB Q2 [facility] Stop: 02/06/18 13:59 Last Admin: 02/06/18 08:11 Dose: 50 mls/hr Potassium Phosphate 15 mmole/ (Dextrose) 255 mls @ 42.5 mls/hr IVPB ONCE ONE Stop: 02/06/18 13:59 Last Admin: 02/06/18 08:59 Dose: 42.5 mls/hr Morphine Sulfate (Morphine) 2 mg IVP Q4 PRN PRN Reason: abd pain Last Admin: 02/03/18 12:01 Dose: 2 mg Ondansetron HCl (Zofran Inj) 4 mg IVP Q6H PRN PRN Reason: Nausea/Vomiting Last Admin: 02/04/18 21:11 Dose: 4 mg Pantoprazole Sodium (Protonix Inj) 40 mg IVP DAILY [facility] Last Admin: 02/06/18 09:04 Dose: 40 mg Senna/Docusate Sodium (Senokot S 50 Mg-8.6 Mg) 1 tab PO BID [facility] Last Admin: 02/06/18 09:37 Dose: 1 tab Sucralfate (Carafate Tab) 1 gm PO ACHS [facility] Last Admin: 02/06/18 08:11 Dose: 1 gm - Labs Labs: 02/06/18 06:10 02/06/18 06:10 PT 17.2 SECONDS (9.7-12.2) H 02/01/18 19:14 INR 1.6 02/01/18 19:14 APTT 40 SECONDS (21-34) H 02/01/18 19:14 - Constitutional Appears: No Acute Distress - Head Exam Head Exam: ATRAUMATIC, NORMOCEPHALIC - Respiratory Exam Respiratory Exam: NORMAL BREATHING PATTERN - Cardiovascular Exam Cardiovascular Exam: REGULAR RHYTHM - GI/Abdominal Exam GI & Abdominal Exam: Soft, Tenderness, Normal Bowel Sounds. 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
[2018-02-07] MEDS: Sodium Chloride 0.9% 1,000 ML IV SCH ×3 (04:00→21:37)
[2018-02-07] MEDS: Piperacill/Tazo 3.375gm in Dex 3.375 GM/50 ML BAG IVPB SCH ×3 (05:54→21:41)
[2018-02-07 07:58] LABS: BASO % 0.8 % (0.0-2.0); EOS # 0.1 K/uL (0.0-0.7); EOS % 2.4 % (0.0-4.0); HEMOGLOBIN 9.9 g/dL (12.0-18.0); LYMPH # 0.5 K/uL (1.0-4.3); LYMPH % 21.3 % (20.0-40.0); MEAN CELL VOLUME 91.6 fL (80.0-94.0); MEAN CORPUSCULAR HGB CONC 33.9 g/dL (33.0-37.0); MEAN PLATELET VOLUME 7.6 fL (7.2-11.7); MONO # 0.3 K/uL (0.0-0.8); MONO % 13.8 % (0.0-10.0); NEUT # 1.5 K/uL (1.8-7.0); NEUT % 61.7 % (50.0-75.0); NRBC % 0.1 % (0.0-2.0); RBC 3.19 Mil/uL (4.40-5.90); RED CELL DISTRIBUTION WIDTH 13.7 % (11.5-14.5); WHITE BLOOD COUNT 2.4 K/uL (4.8-10.8)
[2018-02-07 08:23] LABS: ALB/GLOB RATIO 0.9 (1.0-2.1); ALBUMIN 2.2 g/dL (3.5-5.0); ALT/SGPT 128 U/L (21-72); AST/SGOT 31 U/L (17-59); BLOOD UREA NITROGEN 7 mg/dL (9-20); CALCIUM 7.7 mg/dl (8.6-10.4); GFR NON-AFRICAN AMERICAN > 60
--- NOTE | 2018-02-07 09:13 | CP.PCM.PN ---
Subjective - Date & Time of Evaluation Date of Evaluation: 02/07/18 Time of Evaluation: 09:08 - Subjective Subjective: No new complaints LFTs continue to improve Still with some pain and "heartburn" (chronic post-op) Objective - Vital Signs/Intake and Output Vital Signs (last 24 hours): Temp Pulse Resp BP Pulse Ox 97.5 F L 86 18 111/57 L 95 02/07/18 04:00 02/06/18 18:00 02/06/18 16:00 02/06/18 16:00 02/07/18 04:00 Intake and Output: 02/07/18 02/07/18 06:59 18:59 Intake Total 2040 Output Total 900 Balance 1140 - Medications Medications: Current Medications Al Hydrox/Mg Hydrox/Simethicone (Maalox Plus 30 Ml) 30 ml PO TID PRN PRN Reason: Indigestion / Heartburn Heparin Sodium (Porcine) (Heparin) 5,000 units SC Q12 [facility] Last Admin: 02/06/18 21:26 Dose: 5,000 units Piperacillin Sod/Tazobactam Sod (Zosyn 3.375 Gm Iv Premix) 3.375 gm in 50 mls @ 100 mls/hr IVPB Q8 [facility] PRN Reason: Protocol Last Admin: 02/07/18 05:54 Dose: 100 mls/hr Amikacin Sulfate 250 mg/ (Sodium Chloride) 101 mls @ 101 mls/hr IV Q8H [facility] PRN Reason: Protocol Last Admin: 02/07/18 04:52 Dose: 101 mls/hr Dextrose (Dextrose 10% In Water) 1,000 mls @ 40 mls/hr IV .Q24H [facility] Last Admin: 02/06/18 18:47 Dose: 40 mls/hr Sodium Chloride (Sodium Chloride 0.9%) 1,000 mls @ 125 mls/hr IV .Q8H [facility] Last Admin: 02/07/18 04:00 Dose: Not Given Morphine Sulfate (Morphine) 2 mg IVP Q4 PRN PRN Reason: abd pain Last Admin: 02/03/18 12:01 Dose: 2 mg Ondansetron HCl (Zofran Inj) 4 mg IVP Q6H PRN PRN Reason: Nausea/Vomiting Last Admin: 02/04/18 21:11 Dose: 4 mg Pantoprazole Sodium (Protonix Inj) 40 mg IVP DAILY [facility] Last Admin: 02/06/18 09:04 Dose: 40 mg Senna/Docusate Sodium (Senokot S 50 Mg-8.6 Mg) 1 tab PO BID [facility] Last Admin: 02/06/18 18:47 Dose: Not Given Sucralfate (Carafate Tab) 1 gm PO ACHS [facility] Last Admin: 02/07/18 08:07 Dose: Not Given - Labs Labs: 02/07/18 07:55 02/07/18 07:55 PT 17.2 SECONDS (9.7-12.2) H 02/01/18 19:14 INR 1.6 02/01/18 19:14 APTT 40 SECONDS (21-34) H 02/01/18 19:14 - Constitutional Appears: No Acute Distress - Head Exam Head Exam: ATRAUMATIC, NORMOCEPHALIC - Respiratory Exam Respiratory Exam: NORMAL BREATHING PATTERN - Cardiovascular Exam Cardiovascular Exam: REGULAR RHYTHM - GI/Abdominal Exam GI & Abdominal Exam: Soft, Tenderness, Normal Bowel Sounds. absent: Mass, Organomegaly Additional comments: Biliary drainage tube in place - Extremities Exam Extremities Exam: Normal Inspection Assessment and Plan (1) Acute cholecystitis Assessment & Plan: S/P Cholecystostomy tube with improvement in symptoms and LFTs. Plan per Surgical team for Lap Aliza in the future. Abx. 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 Status: Acute (5) Malnutrition following gastrointestinal surgery Status: Chronic (6) GERD with esophagitis Assessment & Plan: On Carafate QID ac. Status: Acute
[2018-02-07] MEDS: Docusate-Senna 50 mg-8.6 mg Tab PO SCH ×2 (10:00→18:00)
[2018-02-07] MEDS ORDERED: Magnesium Sulfate 1 gm in D5W 1 GM/100 ML BAG IVPB ONE (11:00)
[2018-02-07 18:51] VITALS: RESP 20
[2018-02-08] MEDS: Sodium Chloride 0.9% 1,000 ML IV SCH ×3 (03:09→12:08)
[2018-02-08] MEDS: Piperacill/Tazo 3.375gm in Dex 3.375 GM/50 ML BAG IVPB SCH ×2 (05:11→13:53)
[2018-02-08 08:01] LABS: ALB/GLOB RATIO 0.9 (1.0-2.1); ALBUMIN 2.2 g/dL (3.5-5.0); ALT/SGPT 102 U/L (21-72); AST/SGOT 29 U/L (17-59); BLOOD UREA NITROGEN 6 mg/dL (9-20); CALCIUM 7.9 mg/dl (8.6-10.4); GFR NON-AFRICAN AMERICAN > 60
[2018-02-08 08:06] LABS: BASO % 0.9 % (0.0-2.0); EOS # 0.1 K/uL (0.0-0.7); EOS % 3.4 % (0.0-4.0); HEMOGLOBIN 9.9 g/dL (12.0-18.0); LYMPH # 0.6 K/uL (1.0-4.3); LYMPH % 25.5 % (20.0-40.0); MEAN CELL VOLUME 91.7 fL (80.0-94.0); MEAN CORPUSCULAR HEMOGLOBIN 31.4 pg (27.0-31.0); MEAN CORPUSCULAR HGB CONC 34.3 g/dL (33.0-37.0); MEAN PLATELET VOLUME 8.7 fL (7.2-11.7); MONO # 0.3 K/uL (0.0-0.8); MONO % 11.7 % (0.0-10.0); NEUT # 1.5 K/uL (1.8-7.0); NEUT % 58.5 % (50.0-75.0); NRBC % 0.1 % (0.0-2.0); RBC 3.15 Mil/uL (4.40-5.90); WHITE BLOOD COUNT 2.5 K/uL (4.8-10.8)
[2018-02-08] MEDS: Docusate-Senna 50 mg-8.6 mg Tab PO SCH ×3 (09:37→17:43)
[2018-02-08 15:59] VITALS: BP 107/57; PULSE 67; TEMP 97.4; O2SAT 99
--- NOTE | 2018-02-08 17:55 | CP.PCM.PN ---
Subjective - Date & Time of Evaluation Date of Evaluation: 02/08/18 Time of Evaluation: 11:00 - Subjective Subjective: Alert, awake, denies acute pain or distress, NAD. Objective - Vital Signs/Intake and Output Vital Signs (last 24 hours): Temp Pulse Resp BP Pulse Ox 97.4 F L 67 20 107/57 L 99 02/08/18 15:00 02/08/18 15:00 02/08/18 15:00 02/08/18 15:00 02/08/18 15:00 Intake and Output: 02/08/18 02/08/18 06:59 18:59 Intake Total 1750 1750 Output Total 580 500 Balance 1170 1250 - Medications Medications: Current Medications Al Hydrox/Mg Hydrox/Simethicone (Maalox Plus 30 Ml) 30 ml PO TID PRN PRN Reason: Indigestion / Heartburn Heparin Sodium (Porcine) (Heparin) 5,000 units SC Q12 [facility] Last Admin: 02/08/18 09:37 Dose: 5,000 units Piperacillin Sod/Tazobactam Sod (Zosyn 3.375 Gm Iv Premix) 3.375 gm in 50 mls @ 100 mls/hr IVPB Q8 [facility] PRN Reason: Protocol Last Admin: 02/08/18 13:53 Dose: 100 mls/hr Dextrose (Dextrose 10% In Water) 1,000 mls @ 40 mls/hr IV .Q24H [facility] Last Admin: 02/08/18 12:07 Dose: Not Given Sodium Chloride (Sodium Chloride 0.9%) 1,000 mls @ 125 mls/hr IV .Q8H [facility] Last Admin: 02/08/18 12:08 Dose: Not Given Ondansetron HCl (Zofran Inj) 4 mg IVP Q6H PRN PRN Reason: Nausea/Vomiting Last Admin: 02/04/18 21:11 Dose: 4 mg Pantoprazole Sodium (Protonix Inj) 40 mg IVP DAILY [facility] Last Admin: 02/08/18 09:38 Dose: 40 mg Senna/Docusate Sodium (Senokot S 50 Mg-8.6 Mg) 1 tab PO BID [facility] Last Admin: 02/08/18 17:43 Dose: Not Given Sucralfate (Carafate Tab) 1 gm PO ACHS [facility] Last Admin: 02/08/18 17:43 Dose: 1 gm - Labs Labs: 02/08/18 07:43 02/08/18 07:43 PT 17.2 SECONDS (9.7-12.2) H 02/01/18 19:14 INR 1.6 02/01/18 19:14 APTT 40 SECONDS (21-34) H 02/01/18 19:14 Assessment and Plan - Assessment and Plan (Free Text) Assessment: 67 year old male admitted with acute cholecystitis, s/p percutanious cholecystotomy tube placement by IR, seen and examined. Alert and orientedx3, denies acute pain or distress. Drainage tubes intact, draining moderate amount of biliary fluid. Discussed with DR Allred and DR Garcia, plan to discharge home today on po cipro and flagyl. To be followed by TPN infusion at home and follow up by surgery in 1 week. Advised to follow up with DR Garcia in 1 week.
--- NOTE | 2018-02-14 12:59 | CARD ---
APPROVED REPORT Date of service: 02/04/2018 EKG Measurement Heart [id number] IN [id number] <Conclusion> Normal sinus rhythm Normal ECG
--- NOTE | 2018-03-22 13:21 | PN ---
DATE: 02/05/2018 I visited the patient at 10 p.m. SUBJECTIVE: The patient was seen by town clerk. Today, the patient is feeling well, low-grade fever noted. PHYSICAL EXAMINATION: VITAL SIGNS: Otherwise stable. LABORATORY DATA: WBC improving. ASSESSMENT AND PLAN: Status post cholecystotomy, draining bile now. Currently he is on amikacin as well as Zosyn. He is also receiving intravenous fluids, stable otherwise. We will continue to monitor. We will follow up the patient. Miranda Garcia MD
--- NOTE | 2018-03-22 14:16 | PN ---
DATE: 02/03/2018 SUBJECTIVE: The patient was seen by me at 6:30 p.m. The patient is currently feeling well. He has no pain in the abdomen at this time. He underwent cholecystotomy and drainage of fluid is still noted. PHYSICAL EXAMINATION: VITAL SIGNS: Temperature 98.2, pulse 117, respirations 20, blood pressure 96/60, saturation is 99%. CHEST: Good air entry bilaterally. HEART: Regular heart sounds noted. ABDOMEN: Nontender. Cholecystotomy tube present. EXTREMITIES: No pedal edema. ASSESSMENT AND PLAN: The patient is a 67-year-old male admitted with acute cholecystitis, status post cholecystotomy. He is doing well. We will continue the intravenous antibiotics including Zosyn, amikacin, and IV fluids. We will follow up the patient. Miranda Garcia MD
--- NOTE | 2018-03-23 02:43 | PN ---
DATE: 02/06/2018 TIME SEEN: The patient was seen by me at 5:30 p.m. SUBJECTIVE: The patient is complaining of some epigastric discomfort. He is also complaining of some heartburn like symptoms. He is feeling otherwise well. Currently receiving intravenous IV fluids. Cholecystostomy tube draining fluid. PHYSICAL EXAMINATION: VITAL SIGNS: Temperature 98.6, blood pressure 121/55. MEDICATIONS: Currently the patient is on pantoprazole, morphine for pain, and he is also receiving Zosyn and amikacin. ASSESSMENT: A 67-year-old male with history of gastric cancer, status post total gastrectomy, now admitted with acute cholecystitis, status post cholecystostomy. We will continue the conservative treatment, intravenous fluids, and antibiotics; and we will follow the patient. The patient was also seen by flower grader and surgeon. Miranda Garcia MD
--- NOTE | 2018-03-23 04:41 | PN ---
DATE: 02/07/2018 The patient was seen by me at 3 p.m. The patient is currently feeling well. He has no new symptoms at this time. The patient is also seen by household appliance mechanic. Today, labs and vital signs are stable. Currently, he is on antibiotic. Seen by ID. We will continue the IV treatment at this time. Possible discharge plan tomorrow after clearance by the ID and surgeon. Miranda Garcia MD
--- NOTE | 2018-03-23 07:09 | DS ---
HISTORY: This is a 67-year-old male with a history of hypertension, osteoarthritis, chronic neck pain, history of gastric cancer associated with lymph node metastasis, status post total gastrectomy and esophagojejunostomy done in the past. Admitted to the hospital with severe abdominal pain, right upper quadrant area, associated with nausea and started having fever and there is evidence of WBC and mild increased fever and chills associated with tachycardia. In the emergency room, the patient was noted to have elevated tachycardia and tachypnea, needed hospitalization. On examination, the patient had severe abdominal pain in the right upper quadrant area, and also noted to have acute cholecystitis with distended gallbladder. The patient also has a possibility of acute sepsis, tachycardia. He was admitted to the hospital with the diagnosis of acute cholecystitis with dilated gallbladder. Surgical evaluation was called in. The patient started on intravenous Zosyn antibiotic. COURSE IN THE HOSPITAL: The patient was initially seen by surgeon as the patient has had multiple surgical interventions in the stomach especially for the gastric cancer and danie dissection and in the abdomen, so initially decided for conservative treatment. Interventional Radiology consultation was called in. The patient underwent cholecystostomy tube, tolerated the procedure well. Postoperatively, the patient was given intravenous antibiotics including Zosyn and amikacin. His liver enzymes improved, seen by smoking pipe maker. Markedly the patient had a significant improvement in the symptoms. The patient tolerating the oral feeding. Intravenous TPN also started. The patient is clinically stable. He will be discharged home in six to eight weeks. The patient will follow up with the surgeon for possible cholecystectomy. Clinically, the patient is stable. He will follow up as an outpatient. FINAL DIAGNOSES: Acute cholecystitis status post cholecystostomy, history of gastric cancer, and we will follow with the patient. The patient will continue antibiotics including Cipro and Flagyl and we will follow up with the patient as an outpatient. Miranda Garcia MD
== END 2018-02-08 19:47 | disposition home or self-care (01) | DRG 445 ==
LOC: C.ER 18:11 → C.9E 23:17 → C.3T 02-02 03:24 → C.9I 02-04 15:15 → C.3T 02-07 21:14
PROVIDERS: ADMIT Internal Medicine; ATTEND Internal Medicine
PROC: 3E0336Z Introduction of Nutritional Substance into Peripheral Vein, Percutaneous Approach (ICD-10-PCS; 2018-02-01)
PROC: 0F9430Z Drainage of Gallbladder with Drainage Device, Percutaneous Approach (ICD-10-PCS; principal; 2018-02-02)
DX: K80.00 Calculus of gallbladder with acute cholecystitis without obstruction (principal); E46 Unspecified protein-calorie malnutrition; C16.9 Malignant neoplasm of stomach, unspecified; I10 Essential (primary) hypertension; Z85.028 Personal history of other malignant neoplasm of stomach; R00.0 Tachycardia, unspecified; E87.6 Hypokalemia; E83.39 Other disorders of phosphorus metabolism; D50.9 Iron deficiency anemia, unspecified; F32.9 Major depressive disorder, single episode, unspecified; K21.0 Gastro-esophageal reflux disease with esophagitis; Z98.0 Intestinal bypass and anastomosis status

== ENCOUNTER 2018-04-04 09:09 | Inpatient (IN) | payer MEDICARE, OTHER ==
[2018-03-29 12:38] VITALS: BMI 19.3
[2018-04-04 10:35] VITALS: RESP 20
[2018-04-04] MEDS: Dextrose 5%/0.9% NS 1,000 ML IV SCH (22:09)
[2018-04-04 22:43] LABS: BASO % 0.3 % (0.0-2.0); EOS # 0.1 K/uL (0.0-0.7); EOS % 0.8 % (0.0-4.0); HEMOGLOBIN 10.4 g/dL (12.0-18.0); LYMPH # 1.7 K/uL (1.0-4.3); LYMPH % 24.1 % (20.0-40.0); MEAN CELL VOLUME 90.5 fL (80.0-94.0); MEAN CORPUSCULAR HEMOGLOBIN 30.9 pg (27.0-31.0); MEAN CORPUSCULAR HGB CONC 34.1 g/dL (33.0-37.0); MEAN PLATELET VOLUME 7.8 fL (7.2-11.7); MONO # 0.6 K/uL (0.0-0.8); MONO % 8.8 % (0.0-10.0); NEUT # 4.5 K/uL (1.8-7.0); NRBC % 0.1 % (0.0-2.0); RBC 3.37 Mil/uL (4.40-5.90); RED CELL DISTRIBUTION WIDTH 14.3 % (11.5-14.5); WHITE BLOOD COUNT 6.9 K/uL (4.8-10.8)
[2018-04-04 22:58] LABS: ALB/GLOB RATIO 1.1 (1.0-2.1); ALBUMIN 3.2 g/dL (3.5-5.0); ALT/SGPT 33 U/L (21-72); AST/SGOT 24 U/L (17-59); BLOOD UREA NITROGEN 19 mg/dL (9-20); CALCIUM 8.6 mg/dl (8.6-10.4); GFR NON-AFRICAN AMERICAN > 60
[2018-04-05] MEDS: Dextrose 5%/0.9% NS 1,000 ML IV SCH ×3 (08:02→20:26)
[2018-04-05] MEDS: Albuterol-Ipratrop 3 mg / 0.5 (3 ml) UD INH SCH ×3 (08:37→20:12)
[2018-04-06] MEDS: Albuterol-Ipratrop 3 mg / 0.5 (3 ml) UD INH SCH ×4 (01:40→20:20)
[2018-04-06] MEDS: Dextrose 5%/0.9% NS 1,000 ML IV SCH ×4 (04:00→21:14)
--- NOTE | 2018-04-06 09:56 | CP.PCM.CON ---
History of Present Illness - History of Present Illness History of Present Illness: General Surgery Consult For Dr. Allred This is a 67M with a PMH of gastic CA s/p esaphagogastrectomy, and cholangitis s/p cholecystostomy tube placement. He presented for a same day surgery surgery for removal of his gallbladder however in the preop area he complained of a new left sided chest pain. EKG was done and was normal however the decision was made to delay surgery until cardiac workup is conducted and patient is clear. PMH: HTN, Arthritis, Gastic CA PSH: Cholecystostomy, Esaphagogastrectomy ALL: NKDA Review of Systems - Review of Systems Review of Systems: 12 point review of symptoms conducted and negative except for left sided chest pain. Past Patient History - Infectious Disease Hx of Infectious Diseases: None - Past Medical History & Family History Past Medical History?: Yes - Past Social History Smoking Status: Never Smoked - CARDIAC Hx Cardiac Disorders: Yes Hx Heart Attack: No Hx Hypertension: Yes (Not on meds) Hx Pacemaker: No - PULMONARY Hx Respiratory Disorders: Yes Hx Asthma: Yes Hx Sleep Apnea: No - NEUROLOGICAL Hx Neurological Disorder: Yes Hx Dizziness: Yes - HEENT Hx HEENT Problems: Yes Hx Cataracts: Yes (RIGHT EYE, RECENTLY REMOVED, 04/05/16) - RENAL Hx Chronic Kidney Disease: No - ENDOCRINE/METABOLIC Hx Endocrine Disorders: No - HEMATOLOGICAL/ONCOLOGICAL Hx Blood Disorders: Yes Hx Anemia: Yes (IRON DEFICIENCY) Hx Blood Transfusions: No Hx Blood Transfusion Reaction: No Hx Cancer: Yes (stomach, with mets; s/p chemo and radiation) Other/Comment: Acute Cholecystitis - INTEGUMENTARY Hx Dermatological Problems: No - MUSCULOSKELETAL/RHEUMATOLOGICAL Hx Musculoskeletal Disorders: No Hx Falls: No - GASTROINTESTINAL Hx Gastrointestinal Disorders: Yes Hx Fatty Liver Disease: Yes Hx Gall Bladder Disease: Yes Hx Gastroesophageal Reflux: Yes Hx Hemorrhoids: Yes (WITH BLEEDING) Other/Comment: FATTY LIVER, COLONOSCOPY 07/06; stomach Ca - GENITOURINARY/GYNECOLOGICAL Hx Genitourinary Disorders: No - PSYCHIATRIC Hx Psychophysiologic Disorder: No Hx Substance Use: No - SURGICAL HISTORY Hx Surgeries: Yes Hx Cataract Extraction: Yes (04/05/16) Hx Cardiac Catheterization: Yes Hx Eye Surgery: Yes Hx Vascular Access Device: Yes (RIGHT UPPER ARM PICC LINE FOR TPN) Other/Comment: total gastrectomy - ANESTHESIA Hx Anesthesia: Yes Hx Anesthesia Reactions: No Hx Malignant Hyperthermia: No Has any member of the family had a problem w/ anesthesia?: No Meds Allergies/Adverse Reactions: Allergies Allergy/AdvReac Type Severity Reaction Status Date / Time No Known Allergies Allergy Verified 03/29/18 12:17 - Medications Medications: Current Medications Albuterol/Ipratropium (Duoneb 3 Mg/0.5 Mg (3 Ml) Ud) 3 ml INH RQ6 [facility] Last Admin: 04/06/18 07:41 Dose: Not Given Heparin Sodium (Porcine) (Heparin) 5,000 units SC Q8 [facility] Last Admin: 04/06/18 05:18 Dose: 5,000 units Dextrose/Sodium Chloride (Dextrose 5%/0.9% Ns 1000 Ml) 1,000 mls @ 100 mls/hr IV .Q10H [facility] Last Admin: 04/06/18 05:20 Dose: 100 mls/hr Pantoprazole Sodium (Protonix Inj) 40 mg IVP DAILY [facility] Last Admin: 04/05/18 09:32 Dose: 40 mg Pneumococcal Polyvalent Vaccine (Pneumovax 23 Vaccine) 0.5 ml IM .ONCE ONE Stop: 04/07/18 10:01 Physical Exam - Constitutional Appears: Non-toxic, No Acute Distress - Head Exam Head Exam: ATRAUMATIC, NORMOCEPHALIC - Eye Exam Eye Exam: EOMI - ENT Exam ENT Exam: Mucous Membranes Moist - Respiratory Exam Respiratory Exam: NORMAL BREATHING PATTERN - Cardiovascular Exam Cardiovascular Exam: +S1, +S2 - GI/Abdominal Exam GI & Abdominal Exam: Soft. absent: Tenderness - Extremities Exam Extremities exam: Positive for: normal inspection - Neurological Exam Neurological exam: Alert, Oriented x3 - Psychiatric Exam Psychiatric exam: Normal Affect, Normal Mood - Skin Skin Exam: Dry, Intact, Normal Color Results - Vital Signs Recent Vital Signs: Last Vital Signs Temp 98.1 F 04/06/18 07:35 Pulse 75 04/06/18 07:35 Resp 20 04/06/18 07:35 BP 111/60 04/06/18 07:35 Pulse Ox 99 04/06/18 07:35 - Labs Result Diagrams: 04/04/18 22:32 04/04/18 22:32 Assessment & Plan - Assessment and Plan (Free Text) Assessment: 67M with cholecystostomy Will plan for OR outpatient after cardiac clearance. D/W Dr. Chalino Schultz PGY3 - Date & Time Date: 04/04/18
[2018-04-06] MEDS ORDERED: Caffeine Citrated **INJ** 20 MG/ML IV ONE (11:27)
[2018-04-06 23:53] VITALS: O2SAT 98
[2018-04-07] MEDS: Dextrose 5%/0.9% NS 1,000 ML IV SCH ×3 (00:39→10:10)
[2018-04-07] MEDS: Albuterol-Ipratrop 3 mg / 0.5 (3 ml) UD INH SCH ×2 (01:08→08:58)
[2018-04-07 08:18] VITALS: BP 125/67; PULSE 75; TEMP 98.5
--- NOTE | 2018-04-07 09:59 | CP.PCM.HP ---
Past Patient History - Infectious Disease Hx of Infectious Diseases: None - Past Medical History & Family History Past Medical History?: Yes - Past Social History Smoking Status: Never Smoked - CARDIAC Hx Cardiac Disorders: Yes Hx Heart Attack: No Hx Hypertension: Yes (Not on meds) Hx Pacemaker: No - PULMONARY Hx Respiratory Disorders: Yes Hx Asthma: Yes Hx Sleep Apnea: No - NEUROLOGICAL Hx Neurological Disorder: Yes Hx Dizziness: Yes - HEENT Hx HEENT Problems: Yes Hx Cataracts: Yes (RIGHT EYE, RECENTLY REMOVED, 04/05/16) - RENAL Hx Chronic Kidney Disease: No - ENDOCRINE/METABOLIC Hx Endocrine Disorders: No - HEMATOLOGICAL/ONCOLOGICAL Hx Blood Disorders: Yes Hx Anemia: Yes (IRON DEFICIENCY) Hx Blood Transfusions: No Hx Blood Transfusion Reaction: No Hx Cancer: Yes (stomach, with mets; s/p chemo and radiation) Other/Comment: Acute Cholecystitis - INTEGUMENTARY Hx Dermatological Problems: No - MUSCULOSKELETAL/RHEUMATOLOGICAL Hx Musculoskeletal Disorders: No Hx Falls: No - GASTROINTESTINAL Hx Gastrointestinal Disorders: Yes Hx Fatty Liver Disease: Yes Hx Gall Bladder Disease: Yes Hx Gastroesophageal Reflux: Yes Hx Hemorrhoids: Yes (WITH BLEEDING) Other/Comment: FATTY LIVER, COLONOSCOPY 07/06; stomach Ca - GENITOURINARY/GYNECOLOGICAL Hx Genitourinary Disorders: No - PSYCHIATRIC Hx Psychophysiologic Disorder: No Hx Substance Use: No - SURGICAL HISTORY Hx Surgeries: Yes Hx Cataract Extraction: Yes (04/05/16) Hx Cardiac Catheterization: Yes Hx Eye Surgery: Yes Hx Vascular Access Device: Yes (RIGHT UPPER ARM PICC LINE FOR TPN) Other/Comment: total gastrectomy - ANESTHESIA Hx Anesthesia: Yes Hx Anesthesia Reactions: No Hx Malignant Hyperthermia: No Has any member of the family had a problem w/ anesthesia?: No Meds Allergies/Adverse Reactions: Allergies Allergy/AdvReac Type Severity Reaction Status Date / Time No Known Allergies Allergy Verified 03/29/18 12:17 Results - Vital Signs Recent Vital Signs: Last Vital Signs Temp 98.5 F 04/07/18 08:00 Pulse 75 04/07/18 08:00 Resp 20 04/07/18 08:00 BP 125/67 04/07/18 08:00 Pulse Ox 98 04/07/18 08:00 - Labs Result Diagrams: 04/04/18 22:32 04/04/18 22:32
--- NOTE | 2018-04-07 09:59 | CP.PCM.PN ---
Subjective - Date & Time of Evaluation Date of Evaluation: 04/05/18 Time of Evaluation: 09:59 Objective - Vital Signs/Intake and Output Vital Signs (last 24 hours): Temp Pulse Resp BP Pulse Ox 98.5 F 75 20 125/67 98 04/07/18 08:00 04/07/18 08:00 04/07/18 08:00 04/07/18 08:00 04/07/18 08:00 Intake and Output: 04/07/18 04/07/18 06:59 18:59 Intake Total 1600 Output Total 1660 Balance -60 - Medications Medications: Current Medications Albuterol/Ipratropium (Duoneb 3 Mg/0.5 Mg (3 Ml) Ud) 3 ml INH RQ6 [facility] Last Admin: 04/07/18 08:58 Dose: 3 ml Heparin Sodium (Porcine) (Heparin) 5,000 units SC Q8 [facility] Last Admin: 04/07/18 05:42 Dose: Not Given Dextrose/Sodium Chloride (Dextrose 5%/0.9% Ns 1000 Ml) 1,000 mls @ 100 mls/hr IV .Q10H [facility] Last Admin: 04/07/18 05:44 Dose: 100 mls/hr Pantoprazole Sodium (Protonix Inj) 40 mg IVP DAILY [facility] Last Admin: 04/06/18 11:00 Dose: 40 mg Pneumococcal Polyvalent Vaccine (Pneumovax 23 Vaccine) 0.5 ml IM .ONCE ONE Stop: 04/07/18 10:01 - Labs Labs: 04/04/18 22:32 04/04/18 22:32
--- NOTE | 2018-04-07 09:59 | CP.PCM.DIS ---
Provider - Provider Date of Admission: 04/04/18 09:09 Attending physician: Miranda Garcia MD Hospital Course - Lab Results Lab Results: Most Recent Lab Values WBC 6.9 K/uL (4.8-10.8) D 04/04/18: RBC 3.37 Mil/uL (4.40-5.90) L 04/04/18 22: Hgb 10.4 g/dL (12.0-18.0) L 04/04/18 22: Hct 30.5 % (35.0-51.0) L 04/04/18: MCV 90.5 fL (80.0-94.0) 04/04/18: MCH 30.9 pg (27.0-31.0) 04/04/18: MCHC 34.1 g/dL (33.0-37.0) 04/04/18: RDW 14.3 % (11.5-14.5) 04/04/18: Plt Count 180 K/uL (130-400) 04/04/18: MPV 7.8 fL (7.2-11.7) 04/04/18 22:32 Neut % (Auto) 66.0 % (50.0-75.0) 04/04/18: Lymph % (Auto) 24.1 % (20.0-40.0) 04/04/18: [place] % (Auto) 8.8 % (0.0-10.0) 04/04/18: Eos % (Auto) 0.8 % (0.0-4.0) 04/04/18: Baso % (Auto) 0.3 % (0.0-2.0) 04/04/18: Neut # (Auto) 4.5 K/uL (1.8-7.0) 04/04/18: Lymph # (Auto) 1.7 K/uL (1.0-4.3) 04/04/18 22: [place] # (Auto) 0.6 K/uL (0.0-0.8) 04/04/18: Eos # (Auto) 0.1 K/uL (0.0-0.7) 04/04/18 22:32 Baso # (Auto) 0.0 K/uL (0.0-0.2) 04/04/18 22:32 Sodium 136 mmol/L (132-148) 04/04/18 22:32 Potassium 4.0 mmol/L (3.6-5.2) 04/04/18 22:32 Chloride 102 mmol/L (98-107) 04/04/18 22:32 Carbon Dioxide 26 mmol/L (22-30) 04/04/18 22:32 Anion Gap 12 (10-20) 04/04/18 22:32 BUN 19 mg/dL (9-20) 04/04/18 22:32 Creatinine 0.5 mg/dL (0.8-1.5) L 04/04/18 22:32 Est GFR ( Amer) > 60 04/04/18 22:32 Est GFR (Non-Af Amer) > 60 04/04/18 22:32 Random Glucose 83 mg/dL (75-110) 04/04/18 22:32 Calcium 8.6 mg/dl (8.6-10.4) 04/04/18 22:32 Phosphorus 3.2 mg/dL (2.5-4.5) 04/04/18 22:32 Magnesium 1.7 mg/dL (1.6-2.3) 04/04/18 22:32 Total Bilirubin 0.9 mg/dL (0.2-1.3) 04/04/18 22:32 AST 24 U/L (17-59) 04/04/18 22:32 ALT 33 U/L (21-72) 04/04/18 22:32 Alkaline Phosphatase 128 U/L (38-126) H D 04/04/18 22:32 Troponin I < 0.0120 ng/mL (0.00-0.120) 04/04/18 22:32 Total Protein 6.1 g/dL (6.3-8.3) L 04/04/18 22:32 Albumin 3.2 g/dL (3.5-5.0) L 04/04/18 22:32 Globulin 2.9 gm/dL (2.2-3.9) 04/04/18 22:32 Albumin/Globulin Ratio 1.1 (1.0-2.1) 04/04/18 22:32 Blood Type O POSITIVE 04/04/18 10:25 Antibody Screen Negative 04/04/18 10:25 Discharge Exam - Head Exam Head Exam: ATRAUMATIC, NORMOCEPHALIC Discharge Plan - Follow Up Plan Condition: GOOD Disposition: HOME/ ROUTINE
--- NOTE | 2018-04-07 09:59 | CP.PCM.PN ---
Subjective - Date & Time of Evaluation Date of Evaluation: 04/06/18 Time of Evaluation: 09:59 Objective - Vital Signs/Intake and Output Vital Signs (last 24 hours): Temp Pulse Resp BP Pulse Ox 98.5 F 75 20 125/67 98 04/07/18 08:00 04/07/18 08:00 04/07/18 08:00 04/07/18 08:00 04/07/18 08:00 Intake and Output: 04/07/18 04/07/18 06:59 18:59 Intake Total 1600 Output Total 1660 Balance -60 - Medications Medications: Current Medications Albuterol/Ipratropium (Duoneb 3 Mg/0.5 Mg (3 Ml) Ud) 3 ml INH RQ6 [facility] Last Admin: 04/07/18 08:58 Dose: 3 ml Heparin Sodium (Porcine) (Heparin) 5,000 units SC Q8 [facility] Last Admin: 04/07/18 05:42 Dose: Not Given Dextrose/Sodium Chloride (Dextrose 5%/0.9% Ns 1000 Ml) 1,000 mls @ 100 mls/hr IV .Q10H [facility] Last Admin: 04/07/18 05:44 Dose: 100 mls/hr Pantoprazole Sodium (Protonix Inj) 40 mg IVP DAILY [facility] Last Admin: 04/06/18 11:00 Dose: 40 mg Pneumococcal Polyvalent Vaccine (Pneumovax 23 Vaccine) 0.5 ml IM .ONCE ONE Stop: 04/07/18 10:01 - Labs Labs: 04/04/18 22:32 04/04/18 22:32
[2018-04-07] MEDS ORDERED: Pneumococcal 23-Valent Vaccine IM ONE (10:00)
--- NOTE | 2018-04-07 10:05 | CARD ---
APPROVED REPORT Date of service: 04/06/2018 Protocol: LEXISCAN Test Type: LEXISCAN STRESS Test Indications: PRE OP Medications: LIST Target HR: 151 bpm Resting ECG: normal Resting Heart Rate: 66 bpm Resting Blood Pressure: 132/80mmHg submaximum (85%): 128 bpm TEST SUMMARY PREINFSNHYPERV.01:[id number]/80.0. INFUSIONDOSE 100:300.00.01.069/.0. YPOIEKLPG64:[id number]/80.0. PROCEDURE Pharmacologic stress testing was performed using 0.4mg per 5ml of regadenoson given intravenously over 7-10 seconds. POST EXERCISE Reason for Termination: Protocol Completed Target HR: No Max HR: 69 bpm 64% of Maximum Predicted HR: 151 bpm Exercise duration: 00:30 min:sec, 0 Stage Exercise capacity: 1.0METs Max Blood Pressure: 132/80mmHg Blood Pressure response to exercise: normal resting BP - appropriate response Heart Rate response to exercise: appropriate Chest Pain: No, none Angina index: 0 Arrhythmia: No, none ST Change: No, none Deviation: 0 mm INTERPRETATION Stress EKG Conclusion: Nuclear report to follow EXAM: Myocardial Perfusion REST/STRESS Imaging Protocol The imaging protocol used to acquire images was Rest Tc-99m/stress Tc-99m 1 day Rest Spect myocardial perfusion imaging was performed in supine position 40 minutes following the injection of 11 mCi of Tc-99 Myoview. Gated Stress Spect was performed 45 minutes after intravenous 28 mCi Tc-99 Myoview injection. The images were gated to evaluate regional wall motion and calculate ventricular ejection fraction.Images were reconstructed using backfilter projection method in short horizontal and verticle long axis. Spect slices were generated. RESTING DATA EDV87.02mgVI7.40L/min1/3 Pk. Filling Rate1.62EDV/sec LV Time to Pk. Filling Jnaz030.48msec ESV36.00mlMyocardial Lffw888.00gLV Time to Pk. Ejection Pngz455.68msec Pk. Fill Rate2.64EDV/secAv. Heart Rate67.00bpm EF59.00%Pk. Emptying Rate3.30ESV/sec STRESS DATA EDV99.08arLG5.60L/min ESV29.00mlMyocardial Tisz840.00g Pk. Fill Rate2.61EDV/sec EF71.00%Pk. Emptying Rate3.10ESV/sec 1/3 Pk. Filling Rate1.69EDV/secRegional WT score at stress:0.00 LV Time to Pk. Filling Rate:175.27msecRegional WM score at stress:0.00 LV Time to Pk. Ejection Rate:196.17msecSummed WT score at stress:0.00 Av. Heart Rate65.00bpmSummed WM score at stress:1.00 LV Perf. Quant 17 Seg. SSS4.00 17 Seg. SRS9.00 17 Seg. SDS0.00 Stress Defect Extent (% LAD)0.00Rest Defect Extent (% LAD)3.80Rev. Defect Extent (% LAD)0.00 Stress Defect Extent (% LCX)16.30Rest Defect Extent (% LCX)18.80Rev. Defect Extent (% LCX)0.00 Stress Defect Extent (% RCA)0.00Rest Defect Extent (% RCA)15.60Rev. Defect Extent (% RCA)0.00 Stress Defect Extent (% NANCY)3.90Rest Defect Extent (% NANCY)15.40Rev. Defect Extent (% NANCY)0.00 Other Information Quality:Fair IMPRESSION Normal Myocardial Perfusion exercise stress study Left Ventricle LV Function:Left ventricle systolic function is normal. The Ejection Fraction is >55%. Conclusion 1. Normal Lexiscan Nuclear stress test. Normal EF
--- NOTE | 2018-04-07 10:12 | CP.PCM.CON ---
History of Present Illness - History of Present Illness History of Present Illness: Reason For Consultation: Cardiac Risk assessment This is a 67M with a PMH of gastic CA s/p esaphagogastrectomy, and cholangitis s/p cholecystostomy tube placement. He presented for a same day surgery surgery for removal of his gallbladder however in the preop area he complained of a new left sided chest pain. EKG was done and was normal however the decision was made to delay surgery until cardiac workup is conducted and patient is clear. PMH: HTN, Arthritis, Gastic CA PSH: Cholecystostomy, Esaphagogastrectomy ALL: NKDA Review of Systems - Review of Systems Review of Systems: 12 point review of symptoms conducted and negative except for left sided chest pain. Physical Exam - Constitutional Appears: Non-toxic, No Acute Distress - Head Exam Head Exam: ATRAUMATIC, NORMOCEPHALIC - Eye Exam Eye Exam: EOMI - ENT Exam ENT Exam: Mucous Membranes Moist - Respiratory Exam Respiratory Exam: NORMAL BREATHING PATTERN - Cardiovascular Exam Cardiovascular Exam: +S1, +S2 - GI/Abdominal Exam GI & Abdominal Exam: Soft. absent: Tenderness - Extremities Exam Extremities exam: Positive for: normal inspection - Neurological Exam Neurological exam: Alert, Oriented x3 - Psychiatric Exam Psychiatric exam: Normal Affect, Normal Mood - Skin Skin Exam: Dry, Intact, Normal Color Results - Vital Signs Recent Vital Signs: Last Vital Signs Temp 98.1 F 04/06/18 07:35 Pulse 75 04/06/18 07:35 Resp 20 04/06/18 07:35 BP 111/60 04/06/18 07:35 Pulse Ox 99 04/06/18 07:35 - Labs Result Diagrams: 04/04/18 22:32 04/04/18 22:32 Assessment & Plan - Assessment and Plan (Free Text) Assessment: 67M with cholecystostomy HTN Plan for Open or Lap Cholecystectomy Stress test: Normal ECHO: Normal EF HTN controlled Cardiac Risk for Cholecystectomy under general anaestesia: Low to Moderate If benefit outweighs the risk please proceed with the surgery Past Patient History - Infectious Disease Hx of Infectious Diseases: None - Past Medical History & Family History Past Medical History?: Yes - Past Social History Smoking Status: Never Smoked - CARDIAC Hx Cardiac Disorders: Yes Hx Heart Attack: No Hx Hypertension: Yes (Not on meds) Hx Pacemaker: No - PULMONARY Hx Respiratory Disorders: Yes Hx Asthma: Yes Hx Sleep Apnea: No - NEUROLOGICAL Hx Neurological Disorder: Yes Hx Dizziness: Yes - HEENT Hx HEENT Problems: Yes Hx Cataracts: Yes (RIGHT EYE, RECENTLY REMOVED, 04/05/16) - RENAL Hx Chronic Kidney Disease: No - ENDOCRINE/METABOLIC Hx Endocrine Disorders: No - HEMATOLOGICAL/ONCOLOGICAL Hx Blood Disorders: Yes Hx Anemia: Yes (IRON DEFICIENCY) Hx Blood Transfusions: No Hx Blood Transfusion Reaction: No Hx Cancer: Yes (stomach, with mets; s/p chemo and radiation) Other/Comment: Acute Cholecystitis - INTEGUMENTARY Hx Dermatological Problems: No - MUSCULOSKELETAL/RHEUMATOLOGICAL Hx Musculoskeletal Disorders: No Hx Falls: No - GASTROINTESTINAL Hx Gastrointestinal Disorders: Yes Hx Fatty Liver Disease: Yes Hx Gall Bladder Disease: Yes Hx Gastroesophageal Reflux: Yes Hx Hemorrhoids: Yes (WITH BLEEDING) Other/Comment: FATTY LIVER, COLONOSCOPY 07/06; stomach Ca - GENITOURINARY/GYNECOLOGICAL Hx Genitourinary Disorders: No - PSYCHIATRIC Hx Psychophysiologic Disorder: No Hx Substance Use: No - SURGICAL HISTORY Hx Surgeries: Yes Hx Cataract Extraction: Yes (04/05/16) Hx Cardiac Catheterization: Yes Hx Eye Surgery: Yes Hx Vascular Access Device: Yes (RIGHT UPPER ARM PICC LINE FOR TPN) Other/Comment: total gastrectomy - ANESTHESIA Hx Anesthesia: Yes Hx Anesthesia Reactions: No Hx Malignant Hyperthermia: No Has any member of the family had a problem w/ anesthesia?: No Meds Allergies/Adverse Reactions: Allergies Allergy/AdvReac Type Severity Reaction Status Date / Time No Known Allergies Allergy Verified 03/29/18 12:17 - Medications Medications: Current Medications Albuterol/Ipratropium (Duoneb 3 Mg/0.5 Mg (3 Ml) Ud) 3 ml INH RQ6 [facility] Last Admin: 04/07/18 08:58 Dose: 3 ml Heparin Sodium (Porcine) (Heparin) 5,000 units SC Q8 [facility] Last Admin: 04/07/18 05:42 Dose: Not Given Dextrose/Sodium Chloride (Dextrose 5%/0.9% Ns 1000 Ml) 1,000 mls @ 100 mls/hr IV .Q10H [facility] Last Admin: 04/07/18 05:44 Dose: 100 mls/hr Pantoprazole Sodium (Protonix Inj) 40 mg IVP DAILY [facility] Last Admin: 04/06/18 11:00 Dose: 40 mg Results - Vital Signs Recent Vital Signs: Last Vital Signs Temp 98.5 F 04/07/18 08:00 Pulse 75 04/07/18 08:00 Resp 20 04/07/18 08:00 BP 125/67 04/07/18 08:00 Pulse Ox 98 04/07/18 08:00 - Labs Result Diagrams: 04/04/18 22:32 04/04/18 22:32
--- NOTE | 2018-04-07 19:45 | CARD ---
APPROVED REPORT Date of service: 04/05/2018 EXAM: Two-dimensional and M-mode echocardiogram with Doppler and color Doppler. INDICATION Chest Pain 2D DIMENSIONS IVSd1.0 (0.7-1.1cm)LVDd4.1 (3.9-5.9cm) PWd0.9 (0.7-1.1cm)LA Zrxefu65 (18-58mL) LVDs3.0 (2.5-4.0cm)FS (%) 28.1 % LVEF (%)55.0 (>50%)LVEF (Aden's)67.72 % M-Mode DIMENSIONS Left Atrium (MM)4.03 (2.5-4.0cm)IVSd3.40 (0.7-1.1cm) Aortic Root3.54 (2.2-3.7cm)LVDd2.71 (4.0-5.6cm) Aortic Cusp Exc.2.19 (1.5-2.0cm)PWd0.89 (0.7-1.1cm) FS (%) 13 %LVDs3.06 (2.0-3.8cm) LVEF (%)60 (>50%) Mitral Valve MV E Povexygh08.6cm/sMV A Ulhrgfmv70.5cm/sE/A ratio0.7 TDI Lateral E' Peak V8.74cm/sMedial E' Peak V7.00cm/sE/Lateral E'6.4 E/Medial E'7.9 Tricuspid Valve TR Peak Bhomplsm802gl/sTR Peak Gr.24wgLcEILN57iwQw LEFT VENTRICLE The left ventricle is normal size. There is normal left ventricular wall thickness. The left ventricular function is normal. The left ventricular ejection fraction is within the normal range. No regional wall motion abnormalities noted. The left ventricular diastolic function is normal. No left ventricle thrombus noted on this study. There is no ventricular septal defect visualized. There is no left ventricular aneurysm. There is no mass noted in the left ventricle. RIGHT VENTRICLE The right ventricle is normal size. There is normal right ventricular wall thickness. The right ventricular systolic function is normal. ATRIA The left atrium size is normal. The right atrium size is normal. The interatrial septum is intact with no evidence for an atrial septal defect. AORTIC VALVE The aortic valve is normal in structure and function. No aortic regurgitation is present. There is no aortic valvular stenosis. There is no aortic valvular vegetation. MITRAL VALVE The mitral valve is normal in structure and function. There is no evidence of mitral valve prolapse. There is no mitral valve stenosis. Mitral regurgitation is mild. TRICUSPID VALVE The tricuspid valve is normal in structure and function. There is mild tricuspid regurgitation. Right ventricular systolic pressure is estimated at less than 30 mmHg. There is no tricuspid valve prolapse or vegetation. There is no tricuspid valve stenosis. PULMONIC VALVE The pulmonary valve is normal in structure and function. There is no pulmonic valvular regurgitation. There is no pulmonic valvular stenosis. GREAT VESSELS The aortic root is normal in size. The ascending aorta is normal in size. The pulmonary artery is normal. The IVC is normal in size and collapses >50% with inspiration. PERICARDIAL EFFUSION The pericardium appears normal. There is no pleural effusion. <Conclusion> The left ventricular function is normal. The left ventricular ejection fraction is within the normal range. The left ventricular diastolic function is normal. Mitral regurgitation is mild.
== END 2018-04-07 11:40 | disposition home or self-care (01) | DRG 313 ==
LOC: C.9S 09:09 → C.3T 18:55
PROVIDERS: ADMIT Internal Medicine; ATTEND Internal Medicine
DX: R07.9 Chest pain, unspecified (principal); K81.0 Acute cholecystitis; I10 Essential (primary) hypertension; Z85.028 Personal history of other malignant neoplasm of stomach; J45.909 Unspecified asthma, uncomplicated; D64.9 Anemia, unspecified; K21.9 Gastro-esophageal reflux disease without esophagitis; K76.0 Fatty (change of) liver, not elsewhere classified; Z90.3 Acquired absence of stomach [part of]; Z92.21 Personal history of antineoplastic chemotherapy; Z92.3 Personal history of irradiation

== ENCOUNTER 2018-05-02 11:30 | Inpatient (IN) | payer MEDICARE, OTHER ==
[2018-03-29 12:38] VITALS: BMI 19.3
[2018-05-03] MEDS ORDERED: ceFAZolin 1 gm FROZEN Premix 1 GM/50 ML ML IVPB ONE (11:50)
[2018-05-03] MEDS ORDERED: Morphine 1 mg/ml preservative-free Inj(Duramorph) ONE (11:57)
[2018-05-03] MEDS ORDERED: Midazolam 2 MG/2 ML VIAL ONE (12:02)
[2018-05-03] MEDS ORDERED: Propofol 10 mg/ml Inj (20 ML) ONE (12:02)
[2018-05-03] MEDS ORDERED: Sodium Chloride 0.9% 20 ML IV ONE (12:30)
[2018-05-03] MEDS ORDERED: Iohexol 240 (50 ml) ONE (12:56)
[2018-05-03] MEDS ORDERED: Neostigmine Methylsulfate 3mg/3ml Syringe IV ONE (14:27)
[2018-05-03] MEDS ORDERED: Oxycodone/Acetaminophen 5/325 mg Tab PO PRN (15:04)
[2018-05-03] MEDS: HYDROmorphone 0.5 mg/0.5 ml ISec IVP PRN ×3 (15:10→21:46)
--- NOTE | 2018-05-03 15:57 | PCM.SURG1 ---
<Avinash Trevizo - Last Filed: 05/03/18 15:54> Surgeon's Initial Post Op Note - Surgeon's Notes Surgeon: Dr. Allred [employer] Coach: Dr. Trevizo PGY2 Type of Anesthesia: General Endo, Spinal Anesthesia Administered By: Dr. Centeno Pre-Operative Diagnosis: Cholelithiasis Operative Findings: see operative report. Successful negative cholangiogram. Post-Operative Diagnosis: same Operation Performed: Lap Cholecystectomy with intraoperative cholangiogram Specimen/Specimens Removed: gallbladder Estimated Blood Loss: EBL {In ML}: 50 Blood Products Given: N/A Drains Used: No Drains Post-Op Condition: Good Date of Surgery/Procedure: 05/03/18 Time of Surgery/Procedure: 14:45 <Abner Allred Jr. - Last Filed: 05/06/18 09:32> Surgeon's Initial Post Op Note - Surgeon's Notes Operative Findings: normal, not negative cholangiogram
[2018-05-03] MEDS: Lactated Ringer's 1,000 ML IV SCH (16:00)
--- NOTE | 2018-05-03 16:47 | RAD ---
PROCEDURE: HISTORY: As above COMPARISON: None TECHNIQUE: Total continuous fluoroscopic time utilized during the procedure: 20.5 seconds ; 7.67 mGy FINDINGS: Submitted images from the current procedure: 5 Please refer to the physician's notes performing the procedure. IMPRESSION: Less than 1 hour fluoroscopic time utilized during performance of the procedure
[2018-05-03] MEDS ORDERED: Lactated Ringer's 1,000 ML IV ONE (18:40)
--- NOTE | 2018-05-03 23:44 | OP ---
PROCEDURE DATE: 05/03/2018 PREOPERATIVE DIAGNOSES: Cholecystitis and cholelithiasis, status post cholecystostomy tube. PROCEDURE CARRIED OUT: Laparoscopic cholecystectomy with C-arm cholangiogram. SURGEON: Abner Allred Jr., MD GARMENT WORKER: Avinash Trevizo DO ANESTHESIOLOGIST: Mr. Napier INDICATIONS: The patient is an older middle-aged man with history of esophagogastrectomy in the past for cancer and a history of previous ventral hernia repair with mesh in the midline. OPERATIVE FINDINGS: 1. Cholangiogram carried out through the cystic duct showed free flow into the duodenum, visualization hepatic radicles, and no evidence of any stones or strictures. The patient was taken both with balloon inflated and without the balloon inflated. 2. There were dense intra-abdominal adhesions, but we were able to place a Veress needle on the right side in the hypogastrium, achieving pneumoperitoneum, visualized the gallbladder, cut the cholecystotomy tube and removed it and visualized the gallbladder, the cystic duct and cystic artery in a view of safety. Carried out the cholangiogram, removed the gallbladder from the bed. Blood loss between 25 to 50 mL. After this had been carried out, we carefully inspected the liver for bleeding and the liver bed for bleeding, and there was none. We carefully inspected the wall to make sure that there was no injury associated with the use of cautery, and there was none visualized. We then closed the 10-mm trocar, which was just to the right of the midline with sutures and the others which were 5 mm were closed with skin closure. The patient tolerated the procedure uneventfully. The operations were difficult due to the previous operations: 1. Esophagogastrectomy. 2. Mesh, repair of the hernia. Abner Allred Jr., MD
[2018-05-04 00:09] VITALS: RESP 20
[2018-05-04] MEDS: Lactated Ringer's 1,000 ML IV SCH ×3 (06:08→17:41)
[2018-05-04 07:16] LABS: BASO % 0.3 % (0.0-2.0); EOS % 0.1 % (0.0-4.0); HEMOGLOBIN 11.5 g/dL (12.0-18.0); LYMPH # 1.3 K/uL (1.0-4.3); LYMPH % 13.5 % (20.0-40.0); MEAN CORPUSCULAR HEMOGLOBIN 31.1 pg (27.0-31.0); MEAN CORPUSCULAR HGB CONC 33.6 g/dL (33.0-37.0); MEAN PLATELET VOLUME 8.5 fL (7.2-11.7); MONO # 0.6 K/uL (0.0-0.8); MONO % 6.5 % (0.0-10.0); NEUT # 7.7 K/uL (1.8-7.0); NEUT % 79.6 % (50.0-75.0); RBC 3.7 Mil/uL (4.40-5.90); RED CELL DISTRIBUTION WIDTH 14.4 % (11.5-14.5); WHITE BLOOD COUNT 9.6 K/uL (4.8-10.8)
[2018-05-04 07:26] LABS: MEAN CELL VOLUME 92.7 fL (80.0-94.0)
[2018-05-04 08:18] LABS: ALB/GLOB RATIO 1.3 (1.0-2.1); ALBUMIN 3.8 g/dL (3.5-5.0); ALT/SGPT 63 U/L (21-72); AST/SGOT 85 U/L (17-59); BLOOD UREA NITROGEN 15 mg/dL (9-20); CALCIUM 8.6 mg/dl (8.6-10.4); GFR NON-AFRICAN AMERICAN > 60
[2018-05-04] MEDS: HYDROmorphone 0.5 mg/0.5 ml ISec IVP PRN ×2 (10:02→19:57)
--- NOTE | 2018-05-04 14:43 | CP.PCM.PN ---
Subjective - Date & Time of Evaluation Date of Evaluation: 05/04/18 Time of Evaluation: 06:40 - Subjective Subjective: Surgery Progress note. Dr. Allred Service Pt seen and examined at bedside. No acute events overnight. No N/V/D. Abd pain well controlled. Does report some difficulty with uraination and reports possible incomplete emptying of bladder. Objective - Vital Signs/Intake and Output Vital Signs (last 24 hours): Temp Pulse Resp BP Pulse Ox 98.7 F 94 H 20 110/67 98 05/04/18 07:00 05/04/18 07:00 05/04/18 07:00 05/04/18 07:00 05/04/18 07:00 Intake and Output: 05/04/18 05/04/18 06:59 18:59 Intake Total 1500 Output Total 645 Balance 855 - Medications Medications: Current Medications Hydromorphone HCl (Dilaudid) 0.5 mg IVP Q6H PRN PRN Reason: Pain, severe (8-10) Last Admin: 05/04/18 10:02 Dose: 0.5 mg Lactated Ringer's (Lactated Ringer's) 1,000 mls @ 100 mls/hr IV .Q10H [facility] Last Admin: 05/04/18 06:08 Dose: 100 mls/hr Ondansetron HCl (Zofran Inj) 4 mg IVP Q6 PRN PRN Reason: Nausea/Vomiting Oxycodone/Acetaminophen (Percocet 5/325 Mg Tab) 1 tab PO Q4 PRN PRN Reason: Pain, moderate (4-7) Stop: 05/06/18 15:05 - Labs Labs: 05/04/18 07:06 05/04/18 07:06 - Constitutional Appears: Well, Non-toxic, No Acute Distress - Head Exam Head Exam: ATRAUMATIC, NORMAL INSPECTION, NORMOCEPHALIC - Eye Exam Eye Exam: EOMI, Normal appearance - ENT Exam ENT Exam: Mucous Membranes Moist - Respiratory Exam Respiratory Exam: NORMAL BREATHING PATTERN. absent: Accessory Muscle Use, Wheezes, Respiratory Distress - Cardiovascular Exam Cardiovascular Exam: absent: JVD - GI/Abdominal Exam GI & Abdominal Exam: Soft. absent: Distended, Firm, Guarding, Rigid, Tenderness, Rebound Additional comments: Incisions clean, dry and intact. - Extremities Exam Extremities Exam: Normal Inspection. absent: Calf Tenderness - Neurological Exam Neurological Exam: Alert, Awake, Oriented x3 - Psychiatric Exam Psychiatric exam: Normal Affect, Normal Mood - Skin Skin Exam: Dry, Intact, Normal Color, Warm Assessment and Plan - Assessment and Plan (Free Text) Assessment: 67yo M s/p lap cholecystectomy. POD2 Plan: - Advance diet as tolerated - Continue Drain care. Monitor output. - Will likely be discharged tomorrow. Further recs as per Dr. Chalino Trevizo PGY2 surgery
--- NOTE | 2018-05-05 01:54 | PN ---
DATE: 05/04/2018 SUBJECTIVE: Mr. Rahel Lange is seen by me around 11 p.m. on 05/04/2018. The patient is comfortable, sleeping, not in much pain. He is tolerating the pain better than yesterday. He has no bowel moments. The patient has no nausea, no vomiting. His urinary output is good. Tolerating the small oral feedings. No vomiting noted. PHYSICAL EXAMINATION: GENERAL: Clinical examination is unremarkable. CHEST: No wheezing noted. ABDOMEN: The patient has a Arjun-Rojas drainage noted. EXTREMITIES: No pedal edema. ASSESSMENT AND PLAN: The patient is a 67-year-old male with a history of gastric carcinoma, status post gastrectomy total and lymph node resection and also jejunal esophageal anastomosis, now underwent cholecystectomy, stable clinically. We will continue to monitor. Possible discharge plan tomorrow if he is stable. We will follow up the patient. Miranda Garcia MD
[2018-05-05] MEDS: HYDROmorphone 0.5 mg/0.5 ml ISec IVP PRN ×2 (06:25→17:55)
[2018-05-05 07:16] LABS: BASO % 0.3 % (0.0-2.0); EOS % 0.2 % (0.0-4.0); HEMOGLOBIN 10.4 g/dL (12.0-18.0); LYMPH # 1.7 K/uL (1.0-4.3); LYMPH % 22.7 % (20.0-40.0); MEAN CELL VOLUME 92.7 fL (80.0-94.0); MEAN CORPUSCULAR HEMOGLOBIN 30.9 pg (27.0-31.0); MEAN CORPUSCULAR HGB CONC 33.4 g/dL (33.0-37.0); MEAN PLATELET VOLUME 8.6 fL (7.2-11.7); MONO # 0.5 K/uL (0.0-0.8); MONO % 7.3 % (0.0-10.0); NEUT # 5.2 K/uL (1.8-7.0); NEUT % 69.5 % (50.0-75.0); RBC 3.37 Mil/uL (4.40-5.90); RED CELL DISTRIBUTION WIDTH 14.6 % (11.5-14.5); WHITE BLOOD COUNT 7.4 K/uL (4.8-10.8)
[2018-05-05 07:25] LABS: ALB/GLOB RATIO 1.3 (1.0-2.1); ALBUMIN 3.3 g/dL (3.5-5.0); ALT/SGPT 46 U/L (21-72); AST/SGOT 44 U/L (17-59); BLOOD UREA NITROGEN 10 mg/dL (9-20); CALCIUM 8.5 mg/dl (8.6-10.4); GFR NON-AFRICAN AMERICAN > 60
--- NOTE | 2018-05-05 08:27 | CP.PCM.PN ---
Subjective - Date & Time of Evaluation Date of Evaluation: 05/05/18 Time of Evaluation: 07:15 - Subjective Subjective: Surgery Progress note. Dr. Allred Pt seen and examined at bedside. No acute events overnight. YENI drain with 20cc serosang output overnight. YENI drain d/c this morning, patient tolerated well. Denies any new complaints. tolerating diet. Objective - Vital Signs/Intake and Output Vital Signs (last 24 hours): Temp Pulse Resp BP Pulse Ox 98.6 F 100 H 20 113/61 95 05/05/18 07:00 05/05/18 07:00 05/05/18 07:00 05/05/18 07:00 05/05/18 07:00 Intake and Output: 05/05/18 05/05/18 06:59 18:59 Intake Total 900 Output Total 1625 Balance -725 - Medications Medications: Current Medications Bisacodyl (Dulcolax) 10 mg [place] ONCE ONE Stop: 05/05/18 08:31 Hydromorphone HCl (Dilaudid) 0.5 mg IVP Q6H PRN PRN Reason: Pain, severe (8-10) Last Admin: 05/05/18 06:25 Dose: 0.5 mg Ondansetron HCl (Zofran Inj) 4 mg IVP Q6 PRN PRN Reason: Nausea/Vomiting Oxycodone/Acetaminophen (Percocet 5/325 Mg Tab) 1 tab PO Q4 PRN PRN Reason: Pain, moderate (4-7) Stop: 05/06/18 15:05 - Labs Labs: 05/05/18 07:04 05/05/18 07:04 - Constitutional Appears: Well, Non-toxic, No Acute Distress - Head Exam Head Exam: ATRAUMATIC, NORMAL INSPECTION - Eye Exam Eye Exam: EOMI, Normal appearance - ENT Exam ENT Exam: Mucous Membranes Moist - Respiratory Exam Respiratory Exam: NORMAL BREATHING PATTERN. absent: Accessory Muscle Use, Respiratory Distress - Cardiovascular Exam Cardiovascular Exam: absent: JVD - GI/Abdominal Exam GI & Abdominal Exam: Soft, Tenderness (mild right sided tenderness to palp ation). absent: Distended, Firm, Guarding, Rigid, Rebound - Extremities Exam Extremities Exam: Normal Inspection - Back Exam Back Exam: NORMAL INSPECTION - Neurological Exam Neurological Exam: Alert, Awake, Oriented x3 - Psychiatric Exam Psychiatric exam: Normal Affect, Normal Mood - Skin Skin Exam: Dry, Intact, Normal Color, Warm Assessment and Plan - Assessment and Plan (Free Text) Assessment: 67yo M s/p Lap cholecystectomy. POD 2 Plan: - Continue diet - monitor bowel function. Dulcolax supp given - Pain management - Monitor AM labs Further recs as per Dr. Chalino Trevizo PGY2 surgery
[2018-05-05] MEDS ORDERED: Potassium Chloride 20 mEq ER Tab PO SCH (10:00)
[2018-05-05] MEDS: Potassium Chloride 20 mEq ER Tab PO SCH ×2 (11:16→17:48)
--- NOTE | 2018-05-05 15:44 | CON ---
HISTORY: This is a 67-year-old male with a history of gastric carcinoma, history of asthma as well as depression, admitted to the hospital recently with acute cholecystitis. Because of his overall medical condition, patient initially underwent cholecystotomy tube drainage for acute cholecystitis and later was planned to have elective cholecystectomy, but patient last time admitted with chest pain and he underwent extensive cardiac workup, which was negative. Today, the patient underwent surgical procedure without any complication. He underwent laparoscopic cholecystectomy. Patient tolerated the procedure well, currently doing well. He is complaining of some pain over the operative site. Otherwise he is doing extremely well. The patient is actually receiving total parenteral nutrition as an outpatient because of his total gastrectomy and also associated with jejunal esophagus anastomosis. The patient has a very hard time in gaining weight and maintaining his weight. PAST MEDICAL HISTORY: Gastric carcinoma status post surgery, history of asthma, insomnia, depression. ALLERGIES: NO KNOWN DRUG ALLERGIES. PERSONAL HISTORY: Nonsmoker. Nonalcoholic. FAMILY HISTORY: Noncontributory. REVIEW OF SYSTEMS: Noted from the chart. PHYSICAL EXAMINATION: VITAL SIGNS: Temperature 98.2, pulse 98, blood pressure 138/63, saturation is 100% on 2 L nasal cannula. CHEST: Good air entry. Regular heart sound. ABDOMEN: Soft. Drainage noted. EXTREMITIES: No pedal edema. ASSESSMENT AND PLAN: The patient is a 67-year-old male with a history of gastric carcinoma status post surgery, now admitted with acute cholecystitis, cholecystotomy, now underwent elective laparoscopic cholecystectomy. We will continue to monitor. We will start the patient on TPN, IV fluid, pain management. We will follow. Miranda Garcia MD
[2018-05-05] MEDS: TPN # 1 IV SCH (17:42)
[2018-05-06 07:15] LABS: BASO % 0.1 % (0.0-2.0); HEMOGLOBIN 9.8 g/dL (12.0-18.0); LYMPH # 1.2 K/uL (1.0-4.3); LYMPH % 24.5 % (20.0-40.0); MEAN CELL VOLUME 92.6 fL (80.0-94.0); MEAN CORPUSCULAR HEMOGLOBIN 30.9 pg (27.0-31.0); MEAN CORPUSCULAR HGB CONC 33.4 g/dL (33.0-37.0); MEAN PLATELET VOLUME 8.4 fL (7.2-11.7); MONO # 0.4 K/uL (0.0-0.8); MONO % 8.4 % (0.0-10.0); NEUT # 3.3 K/uL (1.8-7.0); RBC 3.17 Mil/uL (4.40-5.90); RED CELL DISTRIBUTION WIDTH 14.5 % (11.5-14.5)
[2018-05-06 07:24] LABS: ALB/GLOB RATIO 1.1 (1.0-2.1); ALBUMIN 3.2 g/dL (3.5-5.0); ALT/SGPT 42 U/L (21-72); AST/SGOT 28 U/L (17-59); BLOOD UREA NITROGEN 11 mg/dL (9-20); CALCIUM 8.4 mg/dl (8.6-10.4); GFR NON-AFRICAN AMERICAN > 60
[2018-05-06] MEDS: HYDROmorphone 0.5 mg/0.5 ml ISec IVP PRN (08:25)
--- NOTE | 2018-05-06 08:53 | CP.PCM.PN ---
Subjective - Date & Time of Evaluation Date of Evaluation: 05/06/18 Time of Evaluation: 07:45 - Subjective Subjective: General Surgery Pt seen and examined. Pt complains of pain in RUQ controlled by meds. Tolerating small amount of food, on TPN. Having BMs. Objective - Vital Signs/Intake and Output Vital Signs (last 24 hours): Temp Pulse Resp BP Pulse Ox 98.4 F 79 20 120/72 97 05/06/18 08:00 05/06/18 08:00 05/06/18 08:00 05/06/18 08:00 05/06/18 08:00 Intake and Output: 05/06/18 05/06/18 06:59 18:59 Intake Total 510 536 Balance 510 536 - Medications Medications: Current Medications Hydromorphone HCl (Dilaudid) 0.5 mg IVP Q6H PRN PRN Reason: Pain, severe (8-10) Last Admin: 05/06/18 08:25 Dose: 0.5 mg Multivitamins/Vitamin C 10 ml/Chromium/Copper/Manganese/Zinc 1 ml/ Insulin Human Regular 10 unit/ Heparin Sodium (Porcine) 1,000 units/Amino Acids/Electrolytes/Dextrose 1,012.1 mls @ 42 mls/hr IV .Q24H [facility] Last Admin: 05/05/18 17:42 Dose: 42 mls/hr Ondansetron HCl (Zofran Inj) 4 mg IVP Q6 PRN PRN Reason: Nausea/Vomiting Last Admin: 05/06/18 08:42 Dose: 4 mg Oxycodone/Acetaminophen (Percocet 5/325 Mg Tab) 1 tab PO Q4 PRN PRN Reason: Pain, moderate (4-7) Stop: 05/06/18 15:05 Potassium Chloride (K-Dur 20 Meq Er Tab) 20 meq PO BID ISH Last Admin: 05/05/18 17:48 Dose: 20 meq - Labs Labs: 05/06/18 06:58 05/06/18 06:58 - Constitutional Appears: Non-toxic, No Acute Distress - Head Exam Head Exam: ATRAUMATIC, NORMOCEPHALIC - Eye Exam Eye Exam: EOMI. absent: Scleral icterus - Respiratory Exam Respiratory Exam: NORMAL BREATHING PATTERN. absent: Respiratory Distress - GI/Abdominal Exam GI & Abdominal Exam: Soft, Tenderness (at incisions). absent: Distended, Firm, Guarding, Rigid, Rebound - Extremities Exam Extremities Exam: Normal Capillary Refill. absent: Calf Tenderness, Pedal Edema - Neurological Exam Neurological Exam: Alert, Awake, Oriented x3 - Skin Skin Exam: Dry, Warm Assessment and Plan - Assessment and Plan (Free Text) Assessment: 67yo M s/p Lap cholecystectomy. POD#3 Plan: - Continue diet, TPN - Pain management Planning for DC Monday D/W Dr. Chalino Zuniga PGY4
[2018-05-06] MEDS: Potassium Chloride 20 mEq ER Tab PO SCH ×2 (09:01→17:46)
[2018-05-06] MEDS ORDERED: TPN IV SCH (18:00)
[2018-05-06] MEDS ORDERED: Fat Emulsion 20% IV 500 ML IV SCH (18:00)
[2018-05-06] MEDS: TPN # 1 IV SCH (18:00)
[2018-05-06 23:21] VITALS: O2SAT 97
[2018-05-07] MEDS: HYDROmorphone 0.5 mg/0.5 ml ISec IVP PRN (01:33)
[2018-05-07 07:19] LABS: BASO % 0.5 % (0.0-2.0); EOS # 0.2 K/uL (0.0-0.7); EOS % 5.5 % (0.0-4.0); HEMOGLOBIN 9.8 g/dL (12.0-18.0); LYMPH # 0.9 K/uL (1.0-4.3); MEAN CELL VOLUME 91.6 fL (80.0-94.0); MEAN CORPUSCULAR HEMOGLOBIN 31.1 pg (27.0-31.0); MEAN CORPUSCULAR HGB CONC 33.9 g/dL (33.0-37.0); MEAN PLATELET VOLUME 8.3 fL (7.2-11.7); MONO # 0.3 K/uL (0.0-0.8); MONO % 8.6 % (0.0-10.0); NEUT # 1.8 K/uL (1.8-7.0); NEUT % 57.4 % (50.0-75.0); NRBC % 0.1 % (0.0-2.0); RBC 3.17 Mil/uL (4.40-5.90); RED CELL DISTRIBUTION WIDTH 14.1 % (11.5-14.5); WHITE BLOOD COUNT 3.2 K/uL (4.8-10.8)
[2018-05-07 07:30] LABS: ALB/GLOB RATIO 1.1 (1.0-2.1); ALBUMIN 3.1 g/dL (3.5-5.0); ALT/SGPT 43 U/L (21-72); AST/SGOT 57 U/L (17-59); BLOOD UREA NITROGEN 9 mg/dL (9-20); CALCIUM 8.6 mg/dl (8.6-10.4); GFR NON-AFRICAN AMERICAN > 60
[2018-05-07 07:43] VITALS: BP 133/74; PULSE 74; TEMP 98.7
[2018-05-07] MEDS ORDERED: Ferric Sodium Gluconat Complex 125 MG in Sodium Chloride 0.9% 100 ML IVPB SCH (10:00)
[2018-05-07] MEDS ORDERED: Ferric Sodium Gluconat Complex 62.5 mg/5 ml Vial IVPB SCH (10:00)
[2018-05-07] MEDS: Potassium Chloride 20 mEq ER Tab PO SCH (12:04)
--- NOTE | 2018-05-07 12:47 | CP.PCM.DIS ---
Provider - Provider Date of Admission: 05/03/18 10:06 Attending physician: Abner Allred Jr, MD Consults: 05/03/18 15:07 Internal Medicine Consult Routine Comment: Consulting Provider: Miranda Garcia Consulting Physician: Miranda Garcia Reason for Consult: Med consult s/p cholecystectomy. Time Spent in preparation of Discharge (in minutes): 45 Hospital Course - Lab Results Lab Results: Most Recent Lab Values WBC 3.2 K/uL (4.8-10.8) L 05/07/18 07:08 RBC 3.17 Mil/uL (4.40-5.90) L 05/07/18 07:08 Hgb 9.8 g/dL (12.0-18.0) L 05/07/18 07:08 Hct 29.0 % (35.0-51.0) L 05/07/18 07:08 MCV 91.6 fL (80.0-94.0) 05/07/18 07:08 MCH 31.1 pg (27.0-31.0) H 05/07/18 07:08 MCHC 33.9 g/dL (33.0-37.0) 05/07/18 07:08 RDW 14.1 % (11.5-14.5) 05/07/18 07:08 Plt Count 132 K/uL (130-400) 05/07/18 07:08 MPV 8.3 fL (7.2-11.7) 05/07/18 07:08 Neut % (Auto) 57.4 % (50.0-75.0) 05/07/18 07:08 Lymph % (Auto) 28.0 % (20.0-40.0) 05/07/18 07:08 [place] % (Auto) 8.6 % (0.0-10.0) 05/07/18 07:08 Eos % (Auto) 5.5 % (0.0-4.0) H 05/07/18 07:08 Baso % (Auto) 0.5 % (0.0-2.0) 05/07/18 07:08 Neut # (Auto) 1.8 K/uL (1.8-7.0) 05/07/18 07:08 Lymph # (Auto) 0.9 K/uL (1.0-4.3) L 05/07/18 07:08 [place] # (Auto) 0.3 K/uL (0.0-0.8) 05/07/18 07:08 Eos # (Auto) 0.2 K/uL (0.0-0.7) 05/07/18 07:08 Baso # (Auto) 0.0 K/uL (0.0-0.2) 05/07/18 07:08 Sodium 135 mmol/L (132-148) 05/07/18 07:08 Potassium 3.4 mmol/L (3.6-5.2) L 05/07/18 07:08 Chloride 98 mmol/L (98-107) 05/07/18 07:08 Carbon Dioxide 30 mmol/L (22-30) 05/07/18 07:08 Anion Gap 11 (10-20) 05/07/18 07:08 BUN 9 mg/dL (9-20) 05/07/18 07:08 Creatinine 0.5 mg/dL (0.8-1.5) L 05/07/18 07:08 Est GFR ( Amer) > 60 05/07/18 07:08 Est GFR (Non-Af Amer) > 60 05/07/18 07:08 POC Glucose (mg/dL) 122 mg/dL (65-110) H 05/05/18 07:59 Random Glucose 113 mg/dL (75-110) H 05/07/18 07:08 Calcium 8.6 mg/dl (8.6-10.4) 05/07/18 07:08 Phosphorus 3.2 mg/dL (2.5-4.5) 05/07/18 07:08 Magnesium 1.5 mg/dL (1.6-2.3) L 05/07/18 07:08 Total Bilirubin 0.8 mg/dL (0.2-1.3) 05/07/18 07:08 AST 57 U/L (17-59) 05/07/18 07:08 ALT 43 U/L (21-72) 05/07/18 07:08 Alkaline Phosphatase 161 U/L (38-126) H D 05/07/18 07:08 Total Protein 6.0 g/dL (6.3-8.3) L 05/07/18 07:08 Albumin 3.1 g/dL (3.5-5.0) L 05/07/18 07:08 Globulin 2.9 gm/dL (2.2-3.9) 05/07/18 07:08 Albumin/Globulin Ratio 1.1 (1.0-2.1) 05/07/18 07:08 - Hospital Course Hospital Course: 67yo M with previous Cholecystostomy tube here for cholecystectomy. We were able to perform the procedure laparascopically and remove the gallbladder via three ports. Post-operatively, the drain was removed on POD2. Patient was cleared for discharge once home TPN was set up as he has a history of poor nutritional status due to poor PO intake. Patient went home with PICC for home TPN infusions. Discharge Exam - Head Exam Head Exam: ATRAUMATIC, NORMAL INSPECTION, NORMOCEPHALIC - Eye Exam Eye Exam: EOMI, Normal appearance - ENT Exam ENT Exam: Normal Exam - Respiratory Exam Respiratory Exam: NORMAL BREATHING PATTERN, UNREMARKABLE. absent: Accessory Muscle Use, Chest Wall Tenderness, Respiratory Distress - Cardiovascular Exam Cardiovascular Exam: RRR. absent: JVD - GI/Abdominal Exam GI & Abdominal Exam: Soft. absent: Distended, Firm, Guarding, Rebound, Rigid, Tenderness - Extremities Exam Extremities exam: normal inspection - Neurological Exam Neurological exam: Alert, Oriented x3 - Psychiatric Exam Psychiatric exam: Normal Affect, Normal Mood - Skin Skin Exam: Dry, Intact, Normal Color, Warm Discharge Plan - Follow Up Plan Condition: GOOD Disposition: HOME/ ROUTINE Instructions: Cholecystectomy, Laparoscopic Surgery, Gallstones (DC) Additional Instructions: Discharge home with Picc line in place for home TPN. Referrals: Miranda Garcia MD [Staff Provider] -
== END 2018-05-07 15:43 | disposition home health service (06) | DRG 410 ==
LOC: C.9S 05-03 10:06 → C.3T 05-03 17:36
PROVIDERS: ADMIT Surgery Vascular Surgery; ATTEND Surgery Vascular Surgery
PROC: 0FP440Z Removal of Drainage Device from Gallbladder, Percutaneous Endoscopic Approach (ICD-10-PCS; 2018-05-03)
PROC: BF0C1ZZ Plain Radiography of Hepatobiliary System, All using Low Osmolar Contrast (ICD-10-PCS; 2018-05-03)
PROC: 3E0436Z Introduction of Nutritional Substance into Central Vein, Percutaneous Approach (ICD-10-PCS; 2018-05-03)
PROC: 0FT44ZZ Resection of Gallbladder, Percutaneous Endoscopic Approach (ICD-10-PCS; principal; 2018-05-03 12:00)
DX: K80.10 Calculus of gallbladder with chronic cholecystitis without obstruction (principal); K66.0 Peritoneal adhesions (postprocedural) (postinfection); J45.909 Unspecified asthma, uncomplicated; Z93.4 Other artificial openings of gastrointestinal tract status; Z85.028 Personal history of other malignant neoplasm of stomach; Z90.3 Acquired absence of stomach [part of]

== ENCOUNTER 2018-05-09 11:17 | Emergency (ER) | payer MEDICARE, OTHER ==
[2018-05-09 11:18] VITALS: BMI 19.3
[2018-05-09 11:24] VITALS: TEMP 98.4
[2018-05-09] MEDS ORDERED: Sodium Chloride 0.9% 1,000 ML IV ONE (11:59)
[2018-05-09] MEDS ORDERED: Sodium Chloride 0.9% 1,000 ML ONE (12:18)
[2018-05-09 12:24] LABS: BASO % 0.6 % (0.0-2.0); EOS # 0.2 K/uL (0.0-0.7); EOS % 4.9 % (0.0-4.0); HEMOGLOBIN 11.6 g/dL (12.0-18.0); LYMPH # 0.8 K/uL (1.0-4.3); LYMPH % 17.8 % (20.0-40.0); MEAN CELL VOLUME 92.5 fL (80.0-94.0); MEAN CORPUSCULAR HEMOGLOBIN 30.7 pg (27.0-31.0); MEAN CORPUSCULAR HGB CONC 33.2 g/dL (33.0-37.0); MONO # 0.4 K/uL (0.0-0.8); MONO % 7.6 % (0.0-10.0); NEUT # 3.3 K/uL (1.8-7.0); NEUT % 69.1 % (50.0-75.0); RBC 3.79 Mil/uL (4.40-5.90); RED CELL DISTRIBUTION WIDTH 14.3 % (11.5-14.5); WHITE BLOOD COUNT 4.7 K/uL (4.8-10.8)
[2018-05-09 12:28] LABS: SQUAMOUS EPITHIAL < 1 /hpf (0-5); URINE BILIRUBIN NEGATIVE (NEGATIVE); URINE BLOOD NEGATIVE (NEGATIVE); URINE CLARITY Clear (Clear); URINE COLOR Yellow (YELLOW); URINE GLUCOSE (UA) NORMAL (Normal); URINE LEUKOCYTE ESTERASE NEG Leu/uL (Negative); URINE PROTEIN NEGATIVE (NEGATIVE)
[2018-05-09 12:39] LABS: ALB/GLOB RATIO 1.1 (1.0-2.1); ALBUMIN 3.8 g/dL (3.5-5.0); ALT/SGPT 30 U/L (21-72); AST/SGOT 28 U/L (17-59); BLOOD UREA NITROGEN 16 mg/dL (9-20); CALCIUM 9.2 mg/dl (8.6-10.4); GFR NON-AFRICAN AMERICAN > 60; LIPASE 42 U/L (23-300)
--- NOTE | 2018-05-09 13:05 | C.PDOC ---
History Of Present Illness 67 y/o male presents to the ER complaining of vomiting and diarrhea which has been present since yesterday. Patient states that he had few episodes of yellow bile colored vomiting and diarrhea. Patient reports that he had his gallbladder removed by about 1 week ago. He notes that he had gastrectomy and he is not able to tolerate food and fluids by mouth. He has PICC Line for the past 9 months. Time Seen by Provider: 05/09/18 11:40 Chief Complaint (Nursing): GI Problem History Per: Patient History/Exam Limitations: no limitations Onset/Duration Of Symptoms: Days Current Symptoms Are (Timing): Still Present Severity: Moderate Quality Of Discomfort: Aching Past Medical History Reviewed: Historical Data, Nursing Documentation, Vital Signs Vital Signs: Last Vital Signs Temp 98.4 F 05/09/18 11:21 Pulse 81 05/09/18 11:21 Resp 18 05/09/18 11:21 BP 137/66 05/09/18 11:21 Pulse Ox 99 05/09/18 11:21 - Medical History PMH: Anemia (IRON DEFICIENCY), Arthritis (NECK; LOW BACK), Asthma, Depression (NOT TAKING MED. ANYMORE; CLAIMS FEELS BETTER), Gall Bladder Disease (CHOLECYSTITIS), HTN (Not on meds) Denies: Colonic Polyps, Fractures, Chronic Kidney Disease, Seizures, Sleep Apnea Surgical History: Cholecystectomy, Endoscopy Denies: Pacemaker - [facility] Procedures COLONOSCOPY (06/24/14) CORONAR ARTERIOGR-2 CATH (07/31/05) DRAINAGE OF GALLBLADDER WITH DRAINAGE DEVICE, PERC APPROACH (02/01/18) EXCISION OF SMALL INTESTINE, ENDO, DIAGN (01/30/17) INSPECTION OF LARYNX, ENDO (01/30/17) INTRODUCTION OF NUTRITIONAL INTO CENTRAL VEIN, PERC APPROACH (05/03/18) INTRODUCTION OF NUTRITIONAL INTO PERIPH VEIN, PERC APPROACH (02/01/18) LEFT HEART CARDIAC CATH (07/31/05) LT HEART ANGIOCARDIOGRAM (07/31/05) PLAIN RADIOGRAPHY OF HEPATOBIL SYS, ALL USING L OSM CONTRAST (05/03/18) REMOVAL OF DRAIN DEV FROM GALLBLADDER, PERC ENDO APPROACH (05/03/18) REMOVAL OF VAD FROM TRUNK SUBCU/FASCIA, OPEN APPROACH (01/30/17) RESECTION OF GALLBLADDER, PERCUTANEOUS ENDOSCOPIC APPROACH (05/03/18) Family History: States: No Known Family Hx - Social History Hx Tobacco Use: No Hx Alcohol Use: No Hx Substance Use: No - Immunization History Hx Tetanus Toxoid Vaccination: No Hx Influenza Vaccination: Yes Hx Pneumococcal Vaccination: No Review Of Systems Except As Marked, All Systems Reviewed And Found Negative. Gastrointestinal: Positive for: Vomiting, Diarrhea. Negative for: Abdominal Pain Physical Exam - Physical Exam Appears: Non-toxic, No Acute Distress Skin: Normal Color, Warm, Dry Head: Atraumatic, Normacephalic Eye(s): bilateral: Normal Inspection Nose: Normal Oral Mucosa: Moist Neck: Supple Chest: Symmetrical Cardiovascular: Rhythm Regular Respiratory: Normal Breath Sounds, No Rales, No Rhonchi, No Wheezing Gastrointestinal/Abdominal: Soft, Tenderness (mild tenderness around port site from surgery), No Guarding, No Rebound Extremity: Normal ROM, Other (PICC Line to RUE) Neurological/Psych: Oriented x3, Normal Speech Gait: Steady ED Course And Treatment - Laboratory Results Result Diagrams: 05/09/18 12:21 05/09/18 12:21 Lab Interpretation: No Acute Changes ECG: Interpreted By [place] ECG Rhythm: Sinus Rhythm ECG Interpretation: Normal Rate From EC O2 Sat by Pulse Oximetry: 99 (RA) Pulse Ox Interpretation: Normal Progress Note: Treated with IVF NSS and zofran. On re-evaluation in no distress. Abdomen soft non-tender. Case discussed with Dr Garcia who agrees with discharge and follow up as outpatient Reassessment Condition: Improved - Physician Consult Information Physician Contacted: Miranda Garcia Outcome Of Conversation: discharge Medical Decision Making Medical Decision Making: Plan: --Labs --EKG --UA --IV Fluids PICC line right upper arm Disposition Discussed With : Miranda Garcia Doctor Will See Patient In The: Office Counseled Patient/Family Regarding: Studies Performed, Diagnosis, Need For Followup, Rx Given - Disposition Referrals: Miranda Garcia MD [Staff Provider] - Disposition: HOME/ ROUTINE Disposition Time: 14:00 Condition: STABLE Prescriptions: Ondansetron ODT [Zofran ODT] 1 odt PO BID PRN #6 odt PRN Reason: Nausea/Vomiting Instructions: Viral Gastroenteritis Forms: [facility] (Belarusian) - POA Present On Arrival: None - Clinical Impression Clinical Impression: Gastroenteritis - PA / LAUNDRY PRESSER / Resident Statement MD/DO has reviewed & agrees with the documentation as recorded. - Scribe Statement The provider has reviewed the documentation as recorded by the Cammyibe Pablo Moser Provider Attestation All medical record entries made by the Cammyibliz were at my direction and personally dictated by me. I have reviewed the chart and agree that the record accurately reflects my personal performance of the history, physical exam, medical decision making, and the department course for this patient. I have also personally directed, reviewed, and agree with the discharge instructions and disposition.
[2018-05-09 14:06] VITALS: BP 129/65; PULSE 73; RESP 16
[2018-05-09 16:55] VITALS: O2SAT 99
--- NOTE | 2018-05-10 11:00 | CARD ---
APPROVED REPORT Date of service: 05/09/2018 EKG Measurement Heart [id number] <Conclusion> Normal sinus rhythm Normal ECG
== END 2018-05-09 14:33 | disposition home or self-care (01) ==
LOC: C.ER 11:17
DX: K52.9 Noninfective gastroenteritis and colitis, unspecified (principal)
CPT/HCPCS: 80053; 81001; 83690; 85025; 93005; 96361; 96374; 99284; J2405; J7030

== ENCOUNTER 2018-07-21 09:09 | Outpatient (CLI) | payer MEDICARE, OTHER | END 2018-07-21 09:10 | disposition home or self-care (01) | LOC: C.CTH 09:09 ==